=== PATIENT | male | born 1955 | race Caucasian/White ===

== ENCOUNTER 2021-08-08 10:54 | Outpatient (CLI) | payer MEDICARE, SELFPAY ==
--- NOTE | ~2021-08-08 | CT_ITS ---
EXAMINATION: CT abdomen pelvis wo con DATE: 08/08/2021 11:18 INDICATION: Left-sided flank pain TECHNIQUE: Computed tomography (CT) of the abdomen and pelvis was performed without intravenous contr ast. Automated exposure control and iterative reconstruction technique were employed. The dose-length product was 622.36 mGy-cm. COMPARISON: 09/22/2012 FINDINGS: Lung bases are clear. Heart size is normal. No pericardial or pleural effusion. Liver, gallbladder, s pleen, pancreas, bilateral adrenal glands and right kidney are normal. 1 cm nonobstructing stone in a lower pole calyx of the left kidney where there is chronic focal cortical scarring. The lower pole o f the left kidney there is a new 3.0 cm exophytic lesion with slightly greater than simple fluid atte nuation. No hydronephrosis or stones seen along the course of ureters. Mild wall thickening of the bl adder likely related to partially decompressed state although could also be related to chronic outlet obstruction from the enlarged prostate which measures 5.2 x 4.0 cm. Bowels including the appendix ar e normal. No free intraperitoneal gas or fluid. No pathologically enlarged abdominal or pelvic lympha denopathy. L4 laminectomy and partial L3 and L5 laminectomies with L3-L5 posterior spinal fusion with bilateral vertical reid and pedicle screw fixation. There is anterior fusion at L2-L4. Severe spondyl osis in the more cephalad lumbar and lower thoracic spine. IMPRESSION: 1. Centimeter nonobstructing stone at a lower pole calyx of the left kidney. 2. 3 cm indeterminate exophytic lesion at the lower pole of the left kidney which could represent a p roteinaceous/hemorrhagic cyst although differential would include renal cell carcinoma would recommen d further evaluation with pre and postcontrast MRI or CT. 3. Diffuse mild wall thickening of the bladder to at least in part to partially decompressed state bu t may also be secondary to chronic outlet obstruction from the enlarged prostate. Reviewed, dictated and finalized at location A. IMPRESSION: 1. Centimeter nonobstructing stone at a lower pole calyx of the left kidney. 2. 3 cm indeterminate exophytic lesion at the lower pole of the left kidney whi ch could represent a proteinaceous/hemorrhagic cyst although differential would include renal cell carcinoma would recommend further evaluation with pre and p ostcontrast MRI or CT. 3. Diffuse mild wall thickening of the bladder to at least in part to partially decompressed state but may also be secondary to chronic outlet obstruction fro m the enlarged prostate.
== END 2021-08-08 10:55 | disposition home or self-care (01) ==
LOC: ANHIMG 10:59
PROVIDERS: PCP Family Medicine; Visit Provider Urology
DX: R10.9 Unspecified abdominal pain (principal)
CPT/HCPCS: 74176

== ENCOUNTER 2021-08-15 06:53 | Outpatient (CLI) | payer MEDICARE, SELFPAY ==
--- NOTE | ~2021-08-15 | CT_ITS ---
EXAMINATION: CT abdomen pelvis wo/w con EXAM DATE: 08/15/2021 07:33 INDICATION: Neoplasm Of Uncertain Behavior Of Left Kidney TECHNIQUE: Spiral CT of the abdomen without contrast followed by both abdomen and pelvis with 100 cc intravenous Omnipaque 350. Axial, coronal and sagittal images of the abdomen and pelvis were reviewe d. The dose-length product (DLP) for this examination was 2428.87 mGy-cm. The exposure was tailored according to patient size (auto mA exposure control), and iterative reconstruction (ASIR) was used a s additional dose reduction technique. Comparison is made to prior examination from 08/08/2021, 09/23/19 13. FINDINGS: There is a 3.4 cm exophytic mass at the left kidney lower pole anterior cortex measuring 3. 4 cm, was not present in 2012, unchanged compared to last week. This measures 19 Hounsfield units on precontrast study, 33 on postcontrast study, demonstrating mild enhancement which could be from some septa suspected within. Appearance consistent with Bosniak 3 category cystic renal mass. There is a s tone in the left renal pelvis, nonobstructing at 1.1 cm. There are several subcentimeter renal cysts bilaterally. Left adrenal gland mass with macroscopic fat, a myelolipoma measuring 2.4 cm. Right adrenal gland, pa ncreas, spleen are unremarkable. Liver is unremarkable. Gallbladder is unremarkable. No biliary obst ruction. The prostate is unremarkable. Small bilateral inguinal fat-containing hernias. The bladder is unremarkable. There is no retroperitoneal or pelvic lymphadenopathy. There is mild scattered a rteriosclerotic disease. The appendix is normal. The stomach and small bowel are unremarkable. There is expected amount of c olonic stool. No free intraperitoneal gas. The heart is normal in size. There are no pericardial or pleural effusions. The lung bases are unremarkable. There are no osteoblastic or osteolytic les ions identified. Lumbar fusion L3-5. There are L4 laminectomies. IMPRESSION: 1. Left renal 3.4 cm cystic mass, Bosniak category 3. 2. Nonobstructing left renal pelvic stone. 3. Left adrenal myelolipoma. 4. Small inguinal hernias. Reviewed, dictated and finalized at location A.
[2021-08-15 07:27] LABS: Estimated Glomerular Filt Rate > 60
== END 2021-08-15 06:54 | disposition home or self-care (01) ==
PROVIDERS: PCP Family Medicine; Visit Provider Urology
DX: D49.512 Neoplasm of unspecified behavior of left kidney (principal); N28.1 Cyst of kidney, acquired; N20.0 Calculus of kidney; K40.90 Unilateral inguinal hernia, without obstruction or gangrene, not specified as recurrent; I70.0 Atherosclerosis of aorta
CPT/HCPCS: 74178; Q9967

== ENCOUNTER 2021-09-04 08:06 | Outpatient (CLI) | payer MEDICARE, SELFPAY ==
[2021-09-04 08:58] LABS: Prothrombin Time 13.1 Seconds (11.1-14.7)
[2021-09-04 09:01] LABS: Anion Gap 7 mmol/L (8-16); Blood Urea Nitrogen 17 mg/dL (9-20); Calcium 9.2 mg/dL (8.4-10.2); Carbon Dioxide 26 mmol/L (22-30); Chloride 106 mmol/L (98-107); Estimated Glomerular Filt Rate > 60; Glucose 96 mg/dL (65-110); Potassium 4.3 mmol/L (3.4-5.0); Sodium 139 mmol/L (137-145)
== END 2021-09-04 08:07 | disposition home or self-care (01) ==
LOC: ANHSURGERY 08:11
PROVIDERS: Anesthesiology; PCP Family Medicine; Visit Provider Urology
DX: Z01.812 Encounter for preprocedural laboratory examination (principal); N20.1 Calculus of ureter; I10 Essential (primary) hypertension; Z51.81 Encounter for therapeutic drug level monitoring; Z79.899 Other long term (current) drug therapy
CPT/HCPCS: 36415; 80048; 85610; 85730; 87086; 87088

== ENCOUNTER 2021-09-12 01:03 | Day surgery (SDC) | payer MEDICARE, SELFPAY ==
--- NOTE | 2021-09-01 13:40 | PC.NURSE ---
Report to the Outpatient Waiting Room, entrance under the green pavilion located off [facility], at time __0600 on date _09/12/21 . OR Time: . - You and your visitor will be asked a series of questions to screen for COVID 19 for your protection. - A mask is required within the hospital. Preoperative COVID Testing Requirements: No COVID Test needed if: (proof is required; if not received patient will have Rapid Test prior to entry) - Patient has received COVID Vaccine at least 14 days prior to procedure date or - Patient has positive COVID test result within last 90 days of surgery date. COVID Test needed if above criteria is not met If not COVID vaccinated a COVID test must be conducted within 72 hours of surgery and patient is asked to isolate self from time of testing until procedure. You will go to the [employer] [facility] for your COVID testing. The [employer] [facility] site is located at the corner of [address] [facility]. You will only be called if COVID results are positive and your surgeon may reschedule your elective surgery date. Patients may have clear liquids (water, carbonated beverages, clear teas, apple juice) until 3 hours prior to surgery with a maximum of 20 ounces. - No food from midnight until time of surgery - Infants may have breast milk until 4 hours before surgery, formula 6 hours prior to surgery. - Children will be allowed to drink immediately following surgery. If applicable, please bring a bottle or sippy cup to assist with drinking. Juice, water, soda, and popsicles are readily available. For infants on formula, please bring formula the day of surgery. Pacifiers are allowed. Take the following medications with a SIP of water the morning of surgery: _BUPROPION Medications to discontinue per physician PT STATES ASPIRIN AND ALL VITAMINS AND SUPPLEMENTS 5 DAYS PRE OP PER DR LORA Date to take last dose__09/06/21 Please no make-up, nail kazakh, hairspray, perfume, deodorant, or body powder the day of surgery. No jewelry (including any body piercings) or valuables the day of surgery, leave them at home. Please take a shower or bath the night before, or the morning of, surgery with an antibacterial soap. Wear comfortable, loose fitting clothing. Children are encouraged to wear pajamas. - Jewelry must be removed prior to entering the operating room. Rings and piercings that are not removed may be cut off. - The hospital will not accept responsibility for valuables. - Please leave all valuables, including medications, at home the day of surgery. If you are going home after surgery, a licensed driver lifter of sanitation truck must drive you home. - NO public transportation without another adult. - We recommend that an adult stay with you for 24 hours following discharge. - We also recommend that you do not drive, make important decision, drink alcoholic beverages, or take any drugs that were not prescribed by your health care provider for at least 24 hours after your discharge time One visitor will be allowed to accompany the patient into the hospital. Patients visitor will be instructed to remain with patient at all times or leave the building. We will allow the visitor to come back to the postoperative area when patient is ready. Follow any additional instructions given to you from your surgeon. Telephone instructions given to _PATIENT and asked if any additional questions and then verbalized understanding. Patient advised to call surgeon office or pre surgery nurse liaison [phone] if any additional questions.
[2021-09-01 13:58] VITALS: BMI 40.7
--- NOTE | 2021-09-02 13:31 | PM.HPGS ---
History of Present Illness History of Present Illness Consent: Risks, benefits, and alternatives have been discussed and questions answered. Patient agrees to proceed with procedure. Chief complaint: left ureteral stone Narrative: Stefan Kearns is a 66 year old male who was recently seen in follow-up for BPH. During that visit he complained of an atypical flank pain prompting CT scan the abdomen and pelvis without contrast. There revealed a 1 cm left renal pelvic stone in atypical cystic lesion in the lower pole of his left kidney. Follow-up contrast enhanced CT suggest a Bosniak 3 left lower pole cyst, in addition to the 1 cm renal pelvic stone. After careful discussion of options he has elected to proceed with left ESWL for the renal pelvic stone followed by definitive surgical intervention for the atypical suspicious lesion in the lower pole of his left kidney. He is aware the risk copy ESWL including, but not limited to, perinephric hematoma, residual fragments which may obstruct the ureter, need for repeat treatment. Review of Systems Cardiovascular: Cardiovascular: Denies chest pain, Denies lightheadedness, Denies palpitations and Denies dyspnea Respiratory: Respiratory: Denies dyspnea Gastrointestinal: Gastrointestinal: Denies diarrhea, Denies nausea and Denies vomiting Genitourinary: Genitourinary: Denies hematuria and Denies dysuria Endocrine: Endocrine: Denies palpitations PMFSH Past Medical History Medical History BPH (benign prostatic hyperplasia) Cardiac arrhythmia Chronic depression Colon cancer screening HTN (hypertension) Hyperlipidemia Hypogonadism Hypogonadism in male Hypogonadism in male Morbid obesity with BMI of 45.0-49.9, adult DALTON on CPAP Osteoarthritis, multiple sites Primary hypertension Prostate cancer screening Seasonal allergies Surgical History Surgical History H/O total knee replacement (~2007) left knee H/O total knee replacement (~2015) right knee History of bilateral carpal tunnel release History of lumbar fusion History of lumbar surgery (~2013) lumbar disc fusion L3-L5 History of total bilateral knee replacement Family History Family History Mother , 89 COPD (chronic obstructive pulmonary disease) Dementia Father , 89 Alzheimer disease Grandparent , 60 Paget's disease Grandparent , 67 Intestinal cancer Grandparent , 53 Pulmonary emboli Grandparent , 54 Alcoholism Cerebral hemorrhage Social History Social History Smoking status: Never smoker Alcohol intake: current Alcohol use details: 3 DRINKS PER MONTH Substance use: never Substance use type: does not use Spiritual care concerns: No Meds Home Medications and Allergies Home Medications Medication Instructions Recorded Confirmed Type atorvastatin 20 mg tablet 40 mg PO QPM 11/06/19 09/01/21 History metoprolol succinate 25 mg 25 mg PO QPM 11/06/19 09/01/21 History tablet,extended release 24 hr spironolactone 25 mg tablet 12.5 mg PO DAILY tablet 11/06/19 09/01/21 History ascorbate calcium (vitamin C) 500 500 mg PO DAILY 11/17/19 09/01/21 History mg tablet aspirin 81 mg tablet,delayed 81 mg PO DAILY 11/17/19 09/01/21 History release cholecalciferol (vitamin D3) 25 25 mcg PO DAILY 11/17/19 09/01/21 History mcg (1,000 unit) capsule famotidine 20 mg tablet 20 mg PO QPM 11/17/19 09/01/21 History multivitamin 1 cap PO DAILY 11/17/19 09/01/21 History omega 1-fxi-zmg-fish oil 1,000 mg 1 cap PO DAILY 11/17/19 09/01/21 History (120 mg-180 mg) capsule bupropion HCl 150 mg 24 hr tablet, 150 mg PO BID 03/12/21 09/01/21 History extended release magnesium chloride 64 mg 192 mg PO BID tablet
--- NOTE | 2021-09-11 13:56 | WPDANESEPP ---
Anes - Eval Pre Procedure Procedure: Operation Date: 09/12/21 07:30 Proposed Procedures p Left Extracorporeal Shock Wave Lithotripsy - Kvng Ward MD Date/Time: 09/11/21 13:56 Pre Op Diagnosis: left ureteral stone Patient Data Age: 66 Gender: M Height: 1.65 m Weight: 111.15 kg Allergies Allergy/AdvReac Type Severity Reaction Status Date / Time No Known Allergies Allergy Mild Verified 09/04/21 09:20 Home Medications Medication Instructions Recorded Confirmed Type atorvastatin 20 mg tablet 40 mg PO QPM 11/06/19 09/01/21 History metoprolol succinate 25 mg 25 mg PO QPM 11/06/19 09/01/21 History tablet,extended release 24 hr spironolactone 25 mg tablet 12.5 mg PO DAILY tablet 11/06/19 09/01/21 History ascorbate calcium (vitamin C) 500 500 mg PO DAILY 11/17/19 09/01/21 History mg tablet aspirin 81 mg tablet,delayed 81 mg PO DAILY 11/17/19 09/01/21 History release cholecalciferol (vitamin D3) 25 25 mcg PO DAILY 11/17/19 09/01/21 History mcg (1,000 unit) capsule famotidine 20 mg tablet 20 mg PO QPM 11/17/19 09/01/21 History multivitamin 1 cap PO DAILY 11/17/19 09/01/21 History omega 3-rhr-nzi-fish oil 1,000 mg 1 cap PO DAILY 11/17/19 09/01/21 History (120 mg-180 mg) capsule bupropion HCl 150 mg 24 hr tablet, 150 mg PO BID 03/12/21 09/01/21 History extended release magnesium chloride 64 mg 192 mg PO BID tablet 03/12/21 09/01/21 History tablet,extended release enalapril maleate 20 mg tablet 20 mg PO DAILY #90 tablet 07/24/21 09/01/21 Rx calcium carbonate-vitamin D3 1 tablet PO DAILY 09/01/21 09/01/21 History [Calcium 600 + D(3)] cromolyn 1 drp EACH EYE PRN PRN 09/01/21 09/01/21 History cyanocobalamin (vitamin B-12) 1,000 mcg PO DAILY 09/01/21 09/01/21 History escitalopram oxalate 10 mg PO QPM 09/01/21 09/01/21 History finasteride 5 mg PO QPM 09/01/21 09/01/21 History ljukthlm-ncmztxuji-GH 1 drp EACH EAR PRN PRN 09/01/21 09/01/21 History testosterone cypionate 200 mg/mL 200 mg IM .Q2WK #6 ml 09/04/21 Rx intramuscular oil Patient hx anesthesia problems: none Family hx anesthesia problems: none Results Review: All pre-operative results and documents have been reviewed as part of the pre-operative evaluation. [facility] Past Medical History Medical History BPH (benign prostatic hyperplasia) Cardiac arrhythmia Chronic depression Colon cancer screening HTN (hypertension) Hyperlipidemia Hypogonadism Hypogonadism in male Hypogonadism in male Morbid obesity with BMI of 45.0-49.9, adult [place] on CPAP Osteoarthritis, multiple sites Primary hypertension Prostate cancer screening Seasonal allergies Surgical History Surgical History H/O total knee replacement (~2007) left knee H/O total knee replacement (~2015) right knee History of bilateral carpal tunnel release History of lumbar fusion History of lumbar surgery (~2013) lumbar disc fusion L3-L5 History of total bilateral knee replacement Family History Family History Mother , 89 COPD (chronic obstructive pulmonary disease) Dementia Father , 89 Alzheimer disease Grandparent , 60 Paget's disease Grandparent , 67 Intestinal cancer Grandparent , 53 Pulmonary emboli Grandparent , 54 Alcoholism Cerebral hemorrhage Social History Social History Smoking status: Never smoker Alcohol intake: current Alcohol use details: 3 DRINKS PER MONTH Substance use: never Substance use type: does not use Spiritual care concerns: No Exam Day of Procedure 09/11/21 13:56
[2021-09-12] VITALS (7 sets, daily range): BP systolic 83–135; BP diastolic 50–86; PULSE 64–84; RESP 12–18; TEMP 36.3–36.6; O2SAT 97–100
--- NOTE | ~2021-09-12 | XR_ITS ---
EXAMINATION: XR abdomen/kub 1V DATE: 09/12/2021 06:04 INDICATION: Nephrolithiasis for planned shockwave lithotripsy TECHNIQUE: A supine view of the abdomen was obtained. COMPARISON: CT abdomen and pelvis dated 08/15/2021 FINDINGS: 1 cm stone at the left renal hilum. No other evident urolithiasis. Normal bowel gas pattern. Visualiz ed portions of the lung bases are clear. Lumbar dextro scoliosis with severe spondylosis. Instrumente d posterior spinal fusion with bilateral vertical reid and pedicle screw fixation at L3-L5. Anterior f usion without instrumentation at L2-L3. IMPRESSION: 1. 1 cm stone at the left renal pelvis. Reviewed, dictated and finalized at location A.
--- NOTE | 2021-09-12 06:29 | WPDHPUPDATE1 ---
History and Physical Update Update Date/Time: 09/12/21 06:29 History and Physical has been reviewed, including an updated exam of the patient. There are NO changes in the patient's condition. Risks, benefits, and alternatives have been discussed and questions answered. Patient agrees to proceed with procedure.
[2021-09-12] MEDS: LACTATED RINGERS 1,000 ML 30 ML IV CONT ×2 (06:30→08:51)
--- NOTE | 2021-09-12 07:04 | P.PNAN_ITS ---
Anes - Eval Final PreProcedure Day of Procedure 09/12/21 07:04 Patient weight: morbidly obese Heart: regular rate and rhythm Lungs: clear to auscultation and normal air movement Airway: Mallampati scale class II Neurological: alert and oriented Last oral intake: >/= 8 hours ASA classification: III Emergent: no Anesthetic plan: proceed Anesthesia type and monitoring: general LMA and standard monitoring Results Review: All pre-operative results and documents have been reviewed as part of the pre-operative evaluation. Informed Consent: The patient's anesthetic plan and its attendant risks and bene fits were discussed with the patient/family/POA. Questions were solicited and answers provided to the satisfaction of the patient/family/POA.
[2021-09-12] MEDS: ceFAZolin 2 GM/D5W 50 ML 2 GM/50 ML BAG IVPB (07:29)
--- NOTE | 2021-09-12 07:59 | W.PM.PROC2 ---
Procedure Note - Detailed Date of Procedure 09/12/21 Pre-op Diagnosis Left kidney stone Post-op Diagnosis Same Procedure Performed Left ESWL Surgeon Kvng Ward MD Anesthesia General Description of Procedure The patient was brought to the operative suite where he was placed in the supine position on the Dornier lithotripsy table. The focal point of the lithotripter was placed at a 1cm calculus. A total of 2500 shocks were delivered at a power setting of 1-4. There appeared to be good fragmentation of the stone. The patient tolerated the procedure well and was taken to the recovery room in good condition. Drains No Packing No Pathology None sent Complications No immediate complications Condition Stable Disposition PACU
[2021-09-12] MEDS: KETOROLAC 30 MG/ML VIAL (*BKC) IV PUSH (08:04)
== END 2021-09-12 10:10 | disposition home or self-care (01) ==
PROVIDERS: PCP Family Medicine; Visit Provider Urology
PROC: (CPT 50590; principal; 2021-09-12 07:30)
DX: N20.0 Calculus of kidney (principal); N28.1 Cyst of kidney, acquired; E66.01 Morbid (severe) obesity due to excess calories; Z68.41 Body mass index [BMI] 40.0-44.9, adult; Z79.82 Long term (current) use of aspirin; G47.33 Obstructive sleep apnea (adult) (pediatric); E78.5 Hyperlipidemia, unspecified; I10 Essential (primary) hypertension; I49.9 Cardiac arrhythmia, unspecified; N40.0 Benign prostatic hyperplasia without lower urinary tract symptoms; Z98.1 Arthrodesis status; M47.816 Spondylosis without myelopathy or radiculopathy, lumbar region
CPT/HCPCS: 50590; 74018; J0690; J1100; J1885; J2370; J2405; J2704; J3010; J7120

== ENCOUNTER 2021-09-22 14:03 | Outpatient (CLI) | payer MEDICARE, SELFPAY ==
--- NOTE | ~2021-09-22 | XR_ITS ---
XR abdomen/kub 1V 09/22/2021 14:16 Indication: Renal stone. Postlithotripsy. Procedure: KUB Comparison: 09/12/2021 Findings: Bowel gas pattern is nonobstructive. There is a stone in the lower pole of the left kidney. There is dextroscoliosis of the lumbar spine with fusion at L3-L5. There is advanced lumbar spondylo sis. Bowel gas pattern is nonobstructive. Impression: 1: Left nephrolithiasis. Reviewed, dictated and finalized at location A. Impression: 1: Left nephrolithiasis.
== END 2021-09-22 14:04 | disposition home or self-care (01) ==
PROVIDERS: PCP Family Medicine; Visit Provider Urology
DX: N20.0 Calculus of kidney (principal); M47.816 Spondylosis without myelopathy or radiculopathy, lumbar region
CPT/HCPCS: 74018

== ENCOUNTER 2021-10-08 14:15 | Outpatient (CLI) | payer MEDICARE, SELFPAY ==
--- NOTE | ~2021-10-08 | XR_ITS ---
EXAMINATION: XR abdomen/kub 1V DATE: 10/08/2021 14:38 INDICATION: Left kidney stone. TECHNIQUE: A supine view of the abdomen on 2 radiographs was obtained. COMPARISON: CT abdomen and pelvis 08/15/2021 FINDINGS: There are no dilated loops of bowel. There is a 10 mm stone in left kidney. There are granados es of posterior fusion procedure from L3 to L5. There are phleboliths in the pelvis. IMPRESSION: 1. 10 mm stone in left kidney. Reviewed, dictated and finalized at location A.
== END 2021-10-08 14:16 | disposition home or self-care (01) ==
PROVIDERS: PCP Family Medicine; Visit Provider Urology
DX: N20.0 Calculus of kidney (principal)
CPT/HCPCS: 74018

== ENCOUNTER 2021-10-17 19:29 | Emergency (ER) | payer MEDICARE, SELFPAY ==
[2021-10-17 19:47] VITALS: BP 145/85; PULSE 94; RESP 20; TEMP 36.6; O2SAT 97
--- NOTE | 2021-10-17 20:38 | ED.MALEGU ---
HPI - Male Genitourinary General Chief complaint: Urogenital-Male Stated complaint: gonzales problem Time Seen by Provider: 10/17/21 20:11 History of Present Illness HPI Narrative: 66-year-old male presents to the emergency room for evaluation of urine leakage around his Gonzales. Patient states 2 days ago he had a laparoscopic procedure at [facility] per Dr. Ward to have a small mass removed from his left kidney. Patient states indwelling catheter was placed following the procedure, and he has noticed urine leakage around the catheter since its initial placement. Patient denies abdominal pain fever Related Data Home Medications Medication Instructions Recorded Confirmed atorvastatin 20 mg tablet 40 mg PO QPM 11/06/19 09/01/21 metoprolol succinate 25 mg 25 mg PO QPM 11/06/19 09/12/21 tablet,extended release 24 hr spironolactone 25 mg tablet 12.5 mg PO DAILY 11/06/19 09/12/21 ascorbate calcium (vitamin C) 500 500 mg PO DAILY 11/17/19 09/01/21 mg tablet aspirin 81 mg tablet,delayed 81 mg PO DAILY 11/17/19 09/01/21 release (Adult Low Dose Aspirin) cholecalciferol (vitamin D3) 25 25 mcg PO DAILY 11/17/19 09/01/21 mcg (1,000 unit) capsule famotidine 20 mg tablet (Pepcid AC) 20 mg PO QPM 11/17/19 09/01/21 multivitamin 1 cap PO DAILY 11/17/19 09/01/21 omega 1-zkj-aun-fish oil 1,000 mg 1 cap PO DAILY 11/17/19 09/01/21 (120 mg-180 mg) capsule (Fish Oil) bupropion HCl 150 mg 24 hr tablet, 150 mg PO BID 03/12/21 09/12/21 extended release magnesium chloride 64 mg 192 mg PO BID 03/12/21 09/01/21 tablet,extended release calcium carbonate 600 mg-vitamin 1 tablet PO DAILY 09/01/21 09/01/21 D3 10 mcg (400 unit) tablet (Calcium 600 + D(3)) cromolyn 4 % eye drops 1 drp EACH EYE PRN PRN Dry Eye(S) 09/01/21 09/01/21 cyanocobalamin (vitamin B-12) 1,000 mcg PO DAILY 09/01/21 09/01/21 1,000 mcg tablet escitalopram oxalate 10 mg tablet 10 mg PO QPM 09/01/21 09/01/21 finasteride 5 mg tablet 5 mg PO QPM 09/01/21 09/01/21 khmeebcr-yypiqwkzp-dtqmjzxva 3.5 1 drp EACH EAR PRN PRN INFECTION 09/01/21 09/01/21 mg/mL-10,000 unit/mL-1 % ear solution Allergies Allergy/AdvReac Type Severity Reaction Status Date / Time No Known Allergies Allergy Mild Verified 10/17/21 19:51 Review of Systems Review of Systems: CONSTITUTIONAL: Denies fever, chills, or sweats. EYES: Denies visual changes, redness, or discharge. ENT: Denies rhinorrhea, congestion, sore throat, or otalgia. CARDIOVASCULAR: Denies chest pain, palpitations, or edema. RESPIRATORY: Denies cough or dyspnea. GASTROINTESTINAL: Denies abdominal pain, nausea, vomiting, or diarrhea. GENITOURINARY: Denies dysuria or hematuria. SKIN: Denies rash or itching. MUSCULOSKELETAL: Denies back pain, joint pain, or myalgia. NEUROLOGIC: Denies headache, numbness, dizziness, or weakness. PSYCHIATRIC: Denies anxiety or depression. [facility] Past Medical History Medical History BPH (benign prostatic hyperplasia) Cardiac arrhythmia Chronic depression Colon cancer screening HTN (hypertension) Hyperlipidemia Hypogonadism Hypogonadism in male Hypogonadism in male Morbid obesity with BMI of 45.0-49.9, adult D[place] on CPAP Osteoarthritis, multiple sites Primary hypertension Prostate cancer screening Seasonal allergies Surgical History Surgical History H/O total knee replacement (~2007) left knee H/O total knee replacement (~2015) right knee History of bilateral carpal tunnel release History of lumbar fusion History of lumbar surgery (~2013) lumbar disc fusion L3-L5 History of total bilateral knee replacement Family History Family History Mother , 89 COPD (chronic obstructive pulmonary disease) Dementia Father , 89 Alzheimer disease Grandparent , 60 Paget's disease Grandpar
--- NOTE | 2021-10-17 20:55 | PC.NURSE ---
Viera cath removed Pt was able to void with blood clots dark red clots.
[2021-10-17 23:27] VITALS: BP 142/67; PULSE 75; RESP 18; O2SAT 100
== END 2021-10-17 23:28 | disposition home or self-care (01) ==
PROVIDERS: Emergency Provider Nurse Practitioner Family; PCP Family Medicine
DX: T83.091A Other mechanical complication of indwelling urethral catheter, initial encounter (principal); Z98.890 Other specified postprocedural states; N40.0 Benign prostatic hyperplasia without lower urinary tract symptoms; I10 Essential (primary) hypertension; E78.5 Hyperlipidemia, unspecified; E66.01 Morbid (severe) obesity due to excess calories; M19.90 Unspecified osteoarthritis, unspecified site; G47.33 Obstructive sleep apnea (adult) (pediatric); F32.A Depression, unspecified; Z96.653 Presence of artificial knee joint, bilateral; Z98.1 Arthrodesis status; Z79.82 Long term (current) use of aspirin; Y84.6 Urinary catheterization as the cause of abnormal reaction of the patient, or of later complication, without mention of misadventure at the time of the procedure
CPT/HCPCS: 51702; 99283

== ENCOUNTER 2021-10-24 19:50 | Inpatient (IN) | payer MEDICARE, SELFPAY ==
--- NOTE | ~2021-10-24 | XR_ITS ---
XR chest 2V DATE: 10/24/2021 20:23 INDICATION: Fever. Nausea. Recent kidney surgery. TECHNIQUE: PA and lateral views COMPARISON: 09/29/2010 portable AP chest FINDINGS: Normal heart size. No hilar or mediastinal enlargement. No pulmonary infiltrate or consol idation, pulmonary vascular congestion or pleural effusion or pneumothorax. There is aortic calcification. Degenerative spurring of the thoracic spine. IMPRESSION: No active cardiopulmonary disease Reviewed, dictated and finalized at location A.
--- NOTE | ~2021-10-24 | CT_ITS ---
EXAMINATION: CT abdomen pelvis wo con DATE: 10/26/2021 09:49 INDICATION: persistent feves, pyelo TECHNIQUE: Computed tomography (CT) of the abdomen and pelvis was performed without intravenous contr ast. Automated exposure control and iterative reconstruction technique were employed. The dose-length product was 1316.27 mGy-cm. COMPARISON: 10/24/2021. FINDINGS: Lower thorax: Aortic valve and coronary calcifications. Bibasilar atelectasis. Liver: Normal. Biliary/Gallbladder: Gallbladder hydrops. No inflammatory change or obstructing stone/mass detected. No bile duct dilation. Pancreas: No mass or duct dilation. Spleen: Normal. Adrenals:Left adrenal myelolipoma. Kidneys: Persistent to slightly worsened moderate left perinephric stranding. 11 mm left renal pelvic stone. Irregular calcification and density in the left lower pole, consistent with postsurgical clark ge. GI tract: No small or large bowel dilation. Normal appendix. Mesentery/Peritoneum: No ascites, mass, or free air. Retroperitoneum: No mass. Atherosclerotic abdominal aortic and/or arterial calcifications. Pelvis: Persistent bladder wall thickening and surrounding inflammatory change. Soft Tissues: Soft tissues and body wall unremarkable. Bones: No acute osseous finding. IMPRESSION: Persistent to slightly worsening findings that are concerning for ascending infection in the left col lecting system and kidney. Persistent findings of cystitis. Reviewed, dictated and finalized at location K. IMPRESSION: Persistent to slightly worsening findings that are concerning for ascending inf ection in the left collecting system and kidney. Persistent findings of cystiti s.
--- NOTE | ~2021-10-24 | CT_ITS ---
EXAMINATION: CT abdomen pelvis wo con DATE: 10/24/2021 20:32 INDICATION:Fever and chills. Recent kidney surgery. TECHNIQUE: Computed tomography (CT) of the abdomen and pelvis was performed without intravenous contr ast. Automated exposure control and iterative reconstruction technique were employed. Exam dose: 139 5.55 mGy-cm total exam DLP. COMPARISON: None. FINDINGS: The lung bases are clear. Normal heart size. Coronary artery calcification. No pericardial or pleural effusion. The liver, gallbladder, bile ducts, pancreas, pancreatic duct and spleen are unremarkable. Normal right adrenal gland. Approximately 2.1 x 2.4 cm left adrenal myelolipoma. The right kidney is unremarkable, without evidence of mass lesion or hydronephrosis. No right urinary tract calculus. There is postoperative change with sutures along the anteroinferior aspect of the left kidney. There is left perinephric fat stranding, likely postoperative. No abscess cavity is identified. There is a very small amount of air in the left renal collecting system which may be postoperative or due to ins trumentation or infection. Approximately 7.8 x 10 mm left renal pelvic calculus with attenuation of 1300 Hounsfield units. No le ft hydronephrosis is detected. No left ureteral calculus is identified. There is some periureteral st randing on the left. There is prominent diffuse thickening of the urinary bladder wall and pericystic fat stranding, sugge sting cystitis. Mild prostate enlargement. There is some air in the left inguinal canal. There is subcutaneous emphysema of the left abdominal w all and left chest wall. Normal appendix. No bowel obstruction. Normal caliber of the abdominal aorta. No intraperitoneal or retroperitoneal or pelvic mass lesion or adenopathy or ascites. Lumbar laminectomy and posterior lumbar spinal surgical fusion. Extensive degenerative changes of the thoracic and lumbar spine. IMPRESSION: Prominent diffuse bladder wall thickening with pericystic fat stranding, suggesting cyst itis. There is suggestion of ascending left urinary tract infection with some left periureteral stran ding. There is a small amount of air in the left renal collecting structures from There is some perinephric stranding on the left which may be due to postsurgical change and/or infect ion There is some subcutaneous emphysema of the left abdominal and chest nathan, likely postoperative Left renal pelvic nonobstructing calculus Left adrenal myelolipoma Reviewed, dictated and finalized at Location A. Reviewed, dictated and finalized at location A. IMPRESSION: Prominent diffuse bladder wall thickening with pericystic fat stra nding, suggesting cystitis. There is suggestion of ascending left urinary tract infection with some left periureteral stranding. There is a small amount of ai r in the left renal collecting structures from There is some perinephric stranding on the left which may be due to postsurgica l change and/or infection There is some subcutaneous emphysema of the left abdominal and chest nathan, lik rose marie postoperative Left renal pelvic nonobstructing calculus Left adrenal myelolipoma
[2021-10-24 20:01] VITALS: BP 132/65; PULSE 94; RESP 16; TEMP 38.7; O2SAT 94
--- NOTE | 2021-10-24 20:27 | PC.NURSE ---
pt in CT at this time.
--- NOTE | 2021-10-24 20:29 | ED.FEVER ---
HPI - Fever General Chief Complaint: Fever <Jeanette Regalado PA-C - Last Filed: 10/25/21 01:59> Stated Complaint: fever, headache <ABEBA Goff Last Filed: 10/25/21 01:59> Time Seen by Provider: 10/24/21 19:58 <ABEBA Goff Last Filed: 10/25/21 01:59> Source: patient and family <ABEBA Goff Last Filed: 10/25/21 01:59> Mode of arrival: ambulatory <ABEBA Goff Last Filed: 10/25/21 01:59> Limitations: no limitations <ABEBA Goff Last Filed: 10/25/21 01:59> History of Present Illness HPI Narrative: Patient is a 66-year-old male who presents the ED with report of fever. Patient reports he had a lithotripsy done by Dr. Ward on 09/12 at which point he was found to have a suspicious lesion on the lower pole of his left kidney which they felt could be cancer. He was referred to a surgeon at [facility] (Dr. Pérez Cook), who performed a partial L nephrectomy on 10/15 via robotic laparoscopic surgery. 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 Patient has been doing well since then. Today, however he began having severe chills and shaking at home. His took his temperature and noted it to be 102.5 ?F at that time. He took Tylenol around 4 PM and 8 PM and then decided to come to the ED. Temperature upon arrival was 101.6 ?F which increased to 102.9F. Patient states he had a urinary catheter placed after the surgery. He did have issues with blood and clots in his urine initially. The gonzales was removed yesterday at his follow-up appointment with his surgeon. Patient has been able to urinate fine since then but did have occasional dysuria at first. He has urinated several times today. Denies any hematuria. Denies any significant abdominal pain, constipation, diarrhea, nausea, vomiting, recent cough or cold symptoms. Patient denies any chest pain, cough, difficulty breathing, BLE pain or edema. <Jeanette Regalado PA-C - Last Filed: 10/25/21 01:59> Related Data Home Medications: Home Medications Medication Instructions Recorded Confirmed atorvastatin 20 mg tablet 40 mg PO QPM 11/06/19 10/24/21 metoprolol succinate 25 mg 25 mg PO QPM 11/06/19 10/24/21 tablet,extended release 24 hr spironolactone 25 mg tablet 12.5 mg PO DAILY 11/06/19 10/24/21 ascorbate calcium (vitamin C) 500 500 mg PO DAILY 11/17/19 10/24/21 mg tablet aspirin 81 mg tablet,delayed 81 mg PO DAILY 11/17/19 10/24/21 release (Adult Low Dose Aspirin) cholecalciferol (vitamin D3) 25 25 mcg PO DAILY 11/17/19 10/24/21 mcg (1,000 unit) capsule famotidine 20 mg tablet (Pepcid AC) 20 mg PO QPM 11/17/19 10/24/21 multivitamin 1 cap PO DAILY 11/17/19 10/24/21 omega 8-rty-bkl-fish oil 1,000 mg 1 cap PO DAILY 11/17/19 10/24/21 (120 mg-180 mg) capsule (Fish Oil) bupropion HCl 150 mg 24 hr tablet, 150 mg PO BID 03/12/21 10/24/21 extended release magnesium chloride 64 mg 192 mg PO BID 03/12/21 10/24/21 tablet,extended release calcium carbonate 600 mg-vitamin 1 tablet PO DAILY 09/01/21 10/24/21 D3 10 mcg (400 unit) tablet (Calcium 600 + D(3)) cromolyn 4 % eye drops 1 drp EACH EYE PRN PRN Dry Eye(S) 09/01/21 10/24/21 cyanocobalamin (vitamin B-12) 1,000 mcg PO DAILY 09/01/21 10/24/21 1,000 mcg tablet escitalopram oxalate 10 mg tablet 10 mg PO QPM 09/01/21 10/24/21 finasteride 5 mg tablet 5 mg PO QPM 09/01/21 10/24/21 djwjvnuw-axjqsysjk-mlqwcampn 3.5 1 drp EACH EAR PRN PRN INFECTION 09/01/21 10/24/21 mg/mL-10,000 unit/mL-1 % ear solution <Jeanette Regalado PA-C - Last Filed: 10/25/21 01:59> Allergies/Adverse Reactions: Allergies Allergy/AdvReac Type Severity Reaction Status Date / Time No Known Allergies Allergy Mild Verified 10/24/21 20:06 <Jeanette Regalado PA-C - Last Filed: 10/25/21 01:59> Review of Systems Review of Systems: CONSTITUTIONAL: Reports fe
[2021-10-24] MEDS: SODIUM CHLORIDE 0.9% IV 1,000 ML 999 ML IV CONT (20:47)
[2021-10-24] MEDS: KETOROLAC 30 MG/ML VIAL (*BKC) IV PUSH (20:48)
[2021-10-24 20:49] LABS: Basophils Percent Auto 0.3 % (0.2-1.2); Eosinophils Absolute Auto 0.1 K/mm3 (0-0.3); Eosinophils Percent Auto 0.6 % (0-4.4); Hematocrit 40.3 % (42.0-52.0); Immature Granulocyte Absolute 0.03 K/mm3 (0.00-0.031); Immature Granulocyte Percent A 0.3 % (0-0.5); Lymphocytes Absolute Auto 0.57 K/mm3 (0.9-3.2); Lymphocytes Percent Auto 5.1 % (18.3-44.2); Mean Corpuscular HGB Conc 32.3 g/dl (32-36); Mean Corpuscular Hemoglobin 29.8 pg (26-34); Mean Corpuscular Volume 92.4 fl (80-100); Mean Platelet Volume 9.6 fl (7.4-10.4); Monocytes Absolute Auto 0.9 K/mm3 (0.1-0.6); Monocytes Percent Auto 8.3 % (2.6-8.5); Neutrophils Absolute Auto 9.6 K/mm3 (1.3-6.7); Neutrophils Percent Auto 85.4 % (45.5-73.1); Platelet Count Result 189 k/mm3 (150-375); Red Blood Count 4.36 M/mm3 (4.6-6.20); Red Cell Distribution Width 13.9 % (11.5-14.5); White Blood Count 11.3 K/mm3 (4.5-10.0)
[2021-10-24 20:51] LABS: Add Urine Microscopic? YES; Appearance Urine Slightly Cloudy (Clear); Bilirubin Urine Negative (Negative); Blood Urine 2+ (Negative); Color Urine Yellow (Yellow); Glucose Urine UA Negative (Negative); Ketones Urine Negative (Negative); Leukocyte Esterase Ur 1+ LEU/UL (Negative); Nitrate Urine Negative (Negative); Protein Urine 1+ mg/dL (Negative); Specific Grav Ur 1.015 (1.001-1.035); Urobilinogen Urine 0.2 mg/dL (<2.0)
[2021-10-24 20:54] VITALS: BP 121/65; PULSE 95; RESP 18; TEMP 39.4; O2SAT 96
[2021-10-24 20:56] LABS: Amorphous Sediment Urine Few; Bacteria Urine Trace /hpf; RBC Urine >75 /hpf (0-2); WBC Urine >75 /hpf
[2021-10-24 20:57] LABS: Lactic Acid Reflex 1.2 mmol/L (0.7-2.0)
[2021-10-24 20:59] LABS: Alanine Aminotransferase 26 U/L (6-50); Albumin Level 3.9 g/dL (3.5-5.1); Alkaline Phosphatase 80 U/L (38-126); Anion Gap 7 mmol/L (8-16); Aspartate Amino Transferase 27 U/L (17-59); Bilirubin,Total 1.1 mg/dL (0.2-1.3); Blood Urea Nitrogen 19 mg/dL (9-20); Calcium 8.8 mg/dL (8.4-10.2); Carbon Dioxide 27 mmol/L (22-30); Chloride 99 mmol/L (98-107); Estimated CRCL calculation 58 ml/min; Estimated Glomerular Filt Rate 55; Glucose 119 mg/dL (65-110); Potassium 4.3 mmol/L (3.4-5.0); Sodium 133 mmol/L (137-145)
--- NOTE | 2021-10-24 22:14 | PM.IMHP ---
H&P: HPI History of Present Illness Date/Time: 10/24/21 22:14 Chief Complaint: Dysuria Narrative: This is a 66-year-old male with past medical history significant for hypertension, benign prostatic hyperplasia, atrial fibrillation, dyslipidemia, congestive heart failure, renal cell carcinoma of the left kidney patient underwent partial nephrectomy on October 15 and went home with Viera catheter in which was removed the day prior to coming to the emergency room patient had pain with urination, chills, had episode of fever of 102 patient took Tylenol. In emergency room preliminary workup was significant for CT of abdomen and pelvis with ascending pyelo nephritis urinalysis with numerous WBCs and RBCs present. Patient has been admitted for further evaluation management and treatment. Review of Systems Review of Systems: Pain and burning with urination abdominal pain and discomfort fever rigors chills status post left partial nephrectomy by a laparoscopic surgery Constitutional: Constitutional: Reports chills, Reports fatigue and Reports fever(s) Eyes: Eyes: Denies change in vision ENT: Denies dysphagia, Denies vertigo, Denies dizziness, Denies nasal congestion, Denies nasal discharge, Denies nasal obstruction and Denies odynophagia Cardiovascular: Cardiovascular: Denies pedal edema, Denies irregular heart rhythm, Denies claudication, Denies lightheadedness, Denies radiating jaw, neck or arm pain, Denies palpitations, Denies dyspnea on exertion and Denies paroxysmal nocturnal dyspnea Respiratory: Respiratory: Denies chest congestion and Denies cough Gastrointestinal: Gastrointestinal: Reports abdominal pain and Reports nausea Genitourinary: Genitourinary: Reports dysuria and Reports flank pain Musculoskeletal: Musculoskeletal: Denies arthralgias and Denies joint swelling Integumentary/Breasts: Skin/Breast: Denies rash Neurologic: Denies focal weakness and Denies Sensory deficit (Neuro) Endocrine: Endocrine: Denies cold intolerance, Denies fatigue, Denies flushing, Denies heat intolerance, Denies polyphagia, Denies polydipsia and Denies palpitations Hematologic/Lymphatic: Hematologic/Lymphatic: Reports no additional hematologic/lymphatic complaints and Reports as per HPI Allergic/Immunologic: Allergic/Immunologic: Reports no additional allergic/immunologic complaints and Reports as per HPI PMFSH Past Medical History Medical History (Updated 10/25/21 @ 04:36 by Linda Pulliam MD) BPH (benign prostatic hyperplasia) Cardiac arrhythmia Chronic depression Colon cancer screening HTN (hypertension) Hyperlipidemia Hypogonadism Hypogonadism in male Hypogonadism in male Morbid obesity with BMI of 45.0-49.9, adult DALTON on CPAP Osteoarthritis, multiple sites Primary hypertension Prostate cancer screening Seasonal allergies Surgical History Surgical History (Updated 10/24/21 @ 22:26 by Jeanette Regalado PA-C) H/O total knee replacement (~2007) left knee H/O total knee replacement (~2015) right knee History of bilateral carpal tunnel release History of lumbar fusion History of lumbar surgery (~2013) lumbar disc fusion L3-L5 History of partial nephrectomy History of total bilateral knee replacement Family History Family History Mother , 89 COPD (chronic obstructive pulmonary disease) Dementia Father , 89 Alzheimer disease Grandparent , 60 Paget's disease Grandparent , 67 Intestinal cancer Grandparent , 53 Pulmonary emboli Grandparent , 54 Alcoholism Cerebral hemorrhage Social History Social History Smoking status: Never smoker Alcohol intake: never Alcohol use details: one drink q2w Substance use: never Substance use type: does not use Gender identity (if verbalized by the patient): Male Sexual Orientation (if Verbalize
[2021-10-24 22:30] VITALS: BP 111/59; PULSE 91; RESP 18; TEMP 38; O2SAT 95
[2021-10-24 23:27] VITALS: BMI 40.5
[2021-10-24 23:28] VITALS: BP 132/59; PULSE 78; RESP 18; TEMP 37.8; O2SAT 96; BMI 40.5
[2021-10-24 23:37] VITALS: BP 122/66; PULSE 86; RESP 18; O2SAT 96
[2021-10-25] VITALS (14 sets, daily range): BP systolic 90–120; BP diastolic 48–78; PULSE 85–103; RESP 18; TEMP 37.1–39; O2SAT 96–97
[2021-10-25 08:06] LABS: Basophils Absolute Auto 0.1 K/mm3 (0.0-0.1); Basophils Percent Auto 0.5 % (0.2-1.2); Hematocrit 40.2 % (42.0-52.0); Hemoglobin 12.7 g/dL (14.0-18.0); Immature Granulocyte Absolute 0.51 K/mm3 (0.00-0.031); Immature Granulocyte Percent A 1.8 % (0-0.5); Lymphocytes Absolute Auto 0.69 K/mm3 (0.9-3.2); Lymphocytes Percent Auto 2.4 % (18.3-44.2); Mean Corpuscular HGB Conc 31.6 g/dl (32-36); Mean Corpuscular Hemoglobin 29.5 pg (26-34); Mean Corpuscular Volume 93.3 fl (80-100); Mean Platelet Volume 10.2 fl (7.4-10.4); Monocytes Absolute Auto 1.6 K/mm3 (0.1-0.6); Monocytes Percent Auto 5.7 % (2.6-8.5); Neutrophils Absolute Auto 25.7 K/mm3 (1.3-6.7); Neutrophils Percent Auto 89.6 % (45.5-73.1); Platelet Count Result 191 k/mm3 (150-375); Red Blood Count 4.31 M/mm3 (4.6-6.20); White Blood Count 28.6 K/mm3 (4.5-10.0)
[2021-10-25] MEDS: SPIRONOLACTONE 12.5 MG TABLET PO (08:13)
[2021-10-25] MEDS: buPROPion HCL SR (12 HR) 150 MG TAB PO ×2 (08:13→20:40)
[2021-10-25] MEDS: ASPIRIN 81 MG ENTERIC TABLET PO (08:13)
[2021-10-25] MEDS: CHOLECALCIFEROL 1,000 UNITS TABLET 1000 UNITS PO (08:14)
[2021-10-25] MEDS: ASCORBIC ACID 500 MG TABLET PO (08:14)
[2021-10-25] MEDS: ENALAPRIL MALEATE 10 MG TABLET 20 MG PO (08:14)
[2021-10-25] MEDS: CYANOCOBALAMIN 1,000 MCG TABLET 1000 MCG PO (08:14)
[2021-10-25] MEDS: OMEGA 3 POLYUNSAT FATTY ACIDS 1 GM CAP PO (08:14)
[2021-10-25] MEDS: MULTIVITAMINS THERAPEUTIC TAB (*BKC) 1 TABLET PO (08:14)
[2021-10-25] MEDS: MAGNESIUM OXIDE 200 MG TABLET PO ×2 (08:14→20:40)
[2021-10-25 08:39] LABS: Albumin Level 3.5 g/dL (3.5-5.1); Anion Gap 6 mmol/L (8-16); Blood Urea Nitrogen 21 mg/dL (9-20); CRP 13.1 mg/dL (<1.0); Calcium 8.3 mg/dL (8.4-10.2); Carbon Dioxide 22 mmol/L (22-30); Chloride 102 mmol/L (98-107); Estimated CRCL calculation 50 ml/min; Estimated Glomerular Filt Rate 47; Glucose 125 mg/dL (65-110); Magnesium 1.6 mg/dL (1.6-2.3); Phosphorus 3.1 mg/dL (2.5-4.5); Potassium 4.2 mmol/L (3.4-5.0); Sodium 130 mmol/L (137-145)
--- NOTE | 2021-10-25 10:22 | PM.IMPN ---
Progress Note: A&P Assessment and Plan (1) Sepsis: Code(s): A41.9 - Sepsis, unspecified organism Status: Acute Assessment and Plan: Present on admission with elevated white count, rigors and fever. Still with fevers and had diaphoresis overnight. WBC was 11K but now jumped to 28K. BCx and UCx pending. Currently on Vanco. Received one dose of Zosyn in the ED. Zosyn was resumed this morning but labs returned showing elevated Cr to 1.5 today. States he is voiding well (UOP not quantified). Will change Zosyn to Cefepime. Monitor fever curve and follow WBC. (2) Pyelonephritis of left kidney: Code(s): N12 - Tubulo-interstitial nephritis, not specified as acute or chronic Status: Acute Assessment and Plan: Complicated UTI related to recent Viera. Patient presents with fever/rigors. -- CT scan showing left perinephric fat stranding but no abscess cavity is identified. There is a very small amount of air in the left renal collecting system which may be postoperative or due to instrumentation or infection.There is a 1cm left renal pelvic calculus but no left hydronephrosis or left ureteral calculus. There is some periureteral stranding on the left with a prominent diffuse thickening of the urinary bladder wall and pericystic fat stranding, suggesting cystitis. -- Patient was started on vancomycin and given one dose of Zosyn in the ED. -- Zosyn continued this morning but will change to Cefepime. -- BCx and UCx pending; follow up on results. narrow coverage when able. Urology following (3) MALDONADO (acute kidney injury): Code(s): N17.9 - Acute kidney failure, unspecified Status: Acute Assessment and Plan: Cr 1.1-1.5 listed here prior to his surgery. Cr 1.3 on admission and now 1.5. CT was done without contrast. Could be related to ATN from the sepsis. Consider also new baseline Cr related to mild underlying renal dysfunction worse since the partial nephrectomy. CT abdomen reviewed. Do not feel this is related to the abx but will adjust to limit nephrotoxic exposures. Follow. (4) History of partial nephrectomy: Code(s): Z90.5 - Acquired absence of kidney Status: Acute Assessment and Plan: As above. Surgical changes noted but can not exclude infectious process. Urology will be following along (5) Primary hypertension: Code(s): I10 - Essential (primary) hypertension Status: Acute Assessment and Plan: Patient's blood pressure was reviewed on 10/25 Blood pressure remains well controlled. Will continue current medications. (6) DALTON on CPAP: Code(s): G47.33 - Obstructive sleep apnea (adult) (pediatric); Z99.89 - Dependence on other enabling machines and devices Status: Acute Assessment and Plan: Continue auto CPAP here. (7) Morbid obesity with BMI of 45.0-49.9, adult: Code(s): E66.01 - Morbid (severe) obesity due to excess calories; Z68.42 - Body mass index [BMI] 45.0-49.9, adult Status: Acute Assessment and Plan: Lifestyle and diet modification encouraged. Plan DVT prophylaxis: SCDs Code status: Full Subjective Date/time seen: 10/25/21 10:22 Interval history: 66yo male with DALTON, HTN and recent partial left nephrectomy for renal cell CA here for fever/chills and dysuria. Assuming care. Chart reviewed. Patient was found to have renal cell carcinoma and underwent partial nephrectomy on 10/15/2021. Was discharged with Viera catheter which was removed a day or so prior to this admission. He feels better today. He was diaphoretic overnight that has improved today. No nausea or vomiting. Eating reasonably well. He denies chest pain. He has been up walking in the room. Normal urine output. No hematuria. Asking about when he can go home. Exam Narrative: Tm 102.7 100.2 113/69 103 18 97% ra Gen - NARD sitting up in chair Chest - CTA bilaterally, nml RR CV - RRR S1/S2 Abd - Soft, o
--- NOTE | 2021-10-25 11:30 | WPDURCON ---
Assessment and Plan Assessment and plan (1) Sepsis: Code(s): A41.9 - Sepsis, unspecified organism Status: Acute Assessment and Plan: Suspect patient has febrile urinary tract infection with possible pyelonephritis due to recent Viera catheterization -please start Flomax -please monitor postvoid residual and if greater than [address] Viera catheter in setting of acute infection to maximize drainage -patient has a known kidney stone in the left renal pelvis, his CT from last night does not demonstrate any evidence of obvious obstruction, he has no flank pain. Given this, we will hold off on intervention, however should his clinical picture not improve with antibiotics he may need ureteral stenting to maximize drainage to fully clear infection. Please make NPO at midnight and we will determine if this is necessary, or should his clinical condition seemed to be worsening over the day please notify and we would potentially make arrangements to place a stent sooner. -continue antibiotics per primary and follow-up cultures (2) MALDONADO (acute kidney injury): Code(s): N17.9 - Acute kidney failure, unspecified Status: Acute Assessment and Plan: Suspect due to hydration and acute infection along with recent partial nephrectomy. Monitor for now. (3) Status post nephrectomy: Code(s): Z90.5 - Acquired absence of kidney Status: Acute Assessment and Plan: Does not appear to have obvious evidence on exam of an intra-abdominal process, CT with relatively normal findings, no fluid collection that would warrant drainage, no obvious evidence of something like a bowel injury, thus overall clinical picture seems most consistent with a febrile urinary tract infection. Urology Consult Note HPI Date Seen: 10/25/21 Requesting Physician: Linda Pulliam MD Primary Care Provider: Phyllis Love MD Consult Narrative Narrative: Stefan Kearns is a 66 year old male status post left robotic assisted partial nephrectomy with Dr. Pérez Cook at [facility] on 10/15/2021 with a relatively uncomplicated postoperative course with the exception of urinary retention requiring replacement of Viera catheter, which was removed in the office 10 23 2021 admitted to the hospital last night with fevers, chills in the picture concerning for pyelonephritis. Patient reports overall doing quite well since his surgery. He was discharged home 2 days postoperatively without any apparent complications of surgery with exception of he had postoperative urinary retention and failed a trial void and a Viera replaced prior to discharge. He did have to return to the emergency room here at [place] the day after discharge due to some obstruction of the catheter which was exchanged and irrigated. Since then he was doing well at home. The Viera catheter was removed in Dr. Cook is office 10/23/21 patient reports he was voiding well. He did have some mild left flank pain the night of 10/23/2021. Reports yesterday while at home in the afternoon developed fever, chills, rigors that was painless. He feels he was voiding reasonably well without much dysuria, hematuria, or change in odor of urine. Presented to emergency room last night his temperature was 37.8?. CT abdomen pelvis was performed with full report as below, but in brief shows some thickening of the bladder concerning for urinary tract infection, very small amount air in the upper collecting system, has a stone that appears to be nonobstructing in the left in renal pelvis, without hydronephrosis, there is not substantial fluid collection near the kidney, no evidence of abscess, he has very small amount of air in the subcutaneous space near his port sites. He denies flank pain, abdominal pain, nausea, vomiting, is having normal bowel movements. Today he says he feels he is emptying his bladder well, without dysuria or feelings of incomplete emptying, he has had no further
[2021-10-25] MEDS: PROMETHAZINE HCL 25 MG/ML AMPUL IM (13:19)
[2021-10-25] MEDS: FINASTERIDE 5 MG TABLET PO (17:26)
[2021-10-25] MEDS: ATORVASTATIN 40 MG TABLET PO (17:26)
[2021-10-25] MEDS: METOPROLOL SUCCINATE EXT REL 25 MG TABCR PO (17:26)
[2021-10-25] MEDS: FAMOTIDINE 20 MG TABLET PO (17:26)
[2021-10-25] MEDS: ESCITALOPRAM OXALATE 10 MG TABLET PO (17:26)
[2021-10-26] VITALS (8 sets, daily range): BP systolic 119–131; BP diastolic 56–69; PULSE 68–88; RESP 18–22; TEMP 36.7–38.1; O2SAT 94–98
[2021-10-26] MEDS: WATER FOR IRRIGATION, STERILE 1,000 ML BOTTLE 1000 ML (05:12)
[2021-10-26 05:54] LABS: Basophils Absolute Auto 0.1 K/mm3 (0.0-0.1); Basophils Percent Auto 0.3 % (0.2-1.2); Hematocrit 37.2 % (42.0-52.0); Hemoglobin 11.9 g/dL (14.0-18.0); Immature Granulocyte Absolute 0.39 K/mm3 (0.00-0.031); Immature Granulocyte Percent A 1.5 % (0-0.5); Lymphocytes Absolute Auto 0.83 K/mm3 (0.9-3.2); Lymphocytes Percent Auto 3.2 % (18.3-44.2); Mean Corpuscular Hemoglobin 29.5 pg (26-34); Mean Corpuscular Volume 92.3 fl (80-100); Mean Platelet Volume 10.1 fl (7.4-10.4); Monocytes Absolute Auto 1.7 K/mm3 (0.1-0.6); Monocytes Percent Auto 6.6 % (2.6-8.5); Neutrophils Absolute Auto 23.3 K/mm3 (1.3-6.7); Neutrophils Percent Auto 88.4 % (45.5-73.1); Platelet Count Result 177 k/mm3 (150-375); Red Blood Count 4.03 M/mm3 (4.6-6.20); Red Cell Distribution Width 14.3 % (11.5-14.5); White Blood Count 26.3 K/mm3 (4.5-10.0)
[2021-10-26 06:07] LABS: Albumin Level 3.3 g/dL (3.5-5.1); Anion Gap 4 mmol/L (8-16); Blood Urea Nitrogen 23 mg/dL (9-20); Calcium 8.2 mg/dL (8.4-10.2); Carbon Dioxide 26 mmol/L (22-30); Chloride 103 mmol/L (98-107); Estimated CRCL calculation 44 ml/min; Estimated Glomerular Filt Rate 41; Glucose 114 mg/dL (65-110); Sodium 133 mmol/L (137-145)
--- NOTE | 2021-10-26 08:28 | PC.NURSE ---
All 0800 and 0900 meds given by Elida Gore RN.
[2021-10-26] MEDS: ENALAPRIL MALEATE 10 MG TABLET 20 MG PO (11:23)
[2021-10-26] MEDS: MAGNESIUM OXIDE 200 MG TABLET PO ×2 (11:23→20:13)
[2021-10-26] MEDS: buPROPion HCL SR (12 HR) 150 MG TAB PO ×2 (11:23→20:11)
[2021-10-26] MEDS: CYANOCOBALAMIN 1,000 MCG TABLET 1000 MCG PO (11:23)
[2021-10-26] MEDS: MULTIVITAMINS THERAPEUTIC TAB (*BKC) 1 TABLET PO (11:23)
[2021-10-26] MEDS: ASPIRIN 81 MG ENTERIC TABLET PO (11:23)
[2021-10-26] MEDS: ASCORBIC ACID 500 MG TABLET PO (11:23)
[2021-10-26] MEDS: CHOLECALCIFEROL 1,000 UNITS TABLET 1000 UNITS PO (11:24)
[2021-10-26] MEDS: OMEGA 3 POLYUNSAT FATTY ACIDS 1 GM CAP PO (11:24)
--- NOTE | 2021-10-26 11:25 | WPDUROPN2 ---
Progress Note: A&P Assessment and Plan (1) Sepsis: Code(s): A41.9 - Sepsis, unspecified organism Status: Acute Plan (1) Sepsis: ?Code(s): A41.9 - Sepsis, unspecified organism ?Status:?Acute ?Assessment and Plan: Suspect patient has febrile urinary tract infection with possible pyelonephritis due to recent Viera catheterization -continue Flomax -please monitor postvoid residual and if greater than [address] Viera catheter in setting of acute infection to maximize drainage-10/25 PVRs were all low however -patient has a known kidney stone in the left renal pelvis, his CT from 2 days ago and repeat this morningdoes not demonstrate any evidence of obvious obstruction, he has no flank pain.? Given this, we will hold off on intervention, however should his clinical picture not improve with antibiotics he may need ureteral stenting to maximize drainage to fully clear infection.? Given slight downtrend of fever curve 10/25 relative to 10/24 and continued lack of flank pain, will hold off on ureteral stenting at this point time. However, if white count does not down trend or he continues to have fevers for a prolonged course, may need attempted stenting to see if that can assist with clearance of infection. Further, CT does not show any obvious evidence of bowel injury or other postoperative fluid collection. Could consider CT with p.o. contrast at some point, but abdominal exam is very reassuring and non concerning for bowel injury. -continue antibiotics per primary and follow-up cultures (2) MALDONADO (acute kidney injury): ?Code(s): N17.9 - Acute kidney failure, unspecified ?Status:?Acute ?Assessment and Plan: Suspect due to hydration and acute infection along with recent partial nephrectomy.? Monitor for now. (3) Status post nephrectomy: ?Code(s): Z90.5 - Acquired absence of kidney ?Status:?Acute ?Assessment and Plan: Does not appear to have obvious evidence on exam of an intra-abdominal process, CT with relatively normal findings, no fluid collection that would warrant drainage, no obvious evidence of something like a bowel injury, thus overall clinical picture seems most consistent with a febrile urinary tract infection. Time Spent With Patient Time: 15 Subjective Subjective Date/Time Seen: 10/26/21 11:25 Yesterday continue to spike fevers with T-max of 39.0? this is down some from prior days T-max of 39.4. Patient felt somewhat warm last night, but overall generally feels well. PVR was monitored throughout the day yesterday he was emptying well so a Viera catheter was not placed. Patient continues to have no abdominal or flank pain, feels he is voiding, in general says he is feeling improved relative to prior to admission. A CT without contrast obtained by the primary service today on my review appears similar to 1 from several days prior, there was minimal to no fluid surrounding the kidney, he continues to have a UPJ stone but no obvious hydronephrosis and left kidney, very small amount of gas near port sites appear stable to slightly improved, there is no fluid collection I would raise measures fashion of a bowel injury. Exam Const: General: comfortable and no acute distress Resp: Effort & Inspection: normal respiratory effort Cardio: Rate: regular rate GI: Inspection: non-distended GI Palp: Yes Soft to palpation, No Guarding due to palpation present (GI) and No Hernia present Other: Incisions remain current clean dry and intact with no evidence of infection, drainage, tenderness : Other: Normal external exam Extrem: Other: No edema Objective Data Vital Signs Vital Signs: Vital Signs - 24 hr 10/25/21 12:59 10/25/21 14:00 10/25/21 13:29 Temperature 38.8 C H 39.0 C H 38.7 C H Pulse Rate 92 Respiratory Rate 18 Blood Pressure 120/78 Pulse Oximetry 97 Oxygen Delivery 10/25/21 16:32 10/25/21 17:25 10/25/21 17:26 Temperature 37.5 C 37.
--- NOTE | 2021-10-26 15:53 | PM.IMPN ---
Progress Note: A&P Assessment and Plan (1) Sepsis: Code(s): A41.9 - Sepsis, unspecified organism Status: Acute Assessment and Plan: Present on admission with elevated white count, rigors and fever 2nd to left pyelonephritis. Still with fevers but fever curve improving. WBC was 11K but jumped to 28K. WBC down slightly to 26K. BCx are NGTD. UCx growing Klebsiella that is relatively pansensitive. Was on Vanco and Cefepime but will narrow to Rocephin (use 2gm dose given the severity). Repeat CT A/P given the persistent fevers. Monitor fever curve and follow WBC. (2) Pyelonephritis of left kidney: Code(s): N12 - Tubulo-interstitial nephritis, not specified as acute or chronic Status: Acute Assessment and Plan: Complicated UTI related to recent Viera. Patient presents with fever/rigors. -- CT scan showing left perinephric fat stranding but no abscess cavity is identified. There is a very small amount of air in the left renal collecting system which may be postoperative or due to instrumentation or infection.There is a 1cm left renal pelvic calculus but no left hydronephrosis or left ureteral calculus. There is some periureteral stranding on the left with a prominent diffuse thickening of the urinary bladder wall and pericystic fat stranding, suggesting cystitis. -- Patient was started on vancomycin and Zosyn but changed to Cefepime. -- BCx NGTD; UCx growing Klebsiella that is relatively pansensitive -- Change to Rocephin 2gm daily -- Repeat CT A/P -- Urology following and appreciate their input (3) MALDONADO (acute kidney injury): Code(s): N17.9 - Acute kidney failure, unspecified Status: Acute Assessment and Plan: Cr 1.1-1.5 listed here prior to his surgery. Cr 1.3 on admission and now 1.7. CT was done without contrast. Could be related to ATN from the sepsis. Consider also new baseline Cr related to mild underlying renal dysfunction worse since the partial nephrectomy. Good UOP. Hold Spironolactone. Follow. (4) History of partial nephrectomy: Code(s): Z90.5 - Acquired absence of kidney Status: Acute Assessment and Plan: Patient with renal cell CA s/p partial left nephrectomy. As above. Surgical changes noted but can not exclude infectious process. Urology is following along. Follow up on CT results from today. (5) Primary hypertension: Code(s): I10 - Essential (primary) hypertension Status: Acute Assessment and Plan: Patient's blood pressure was reviewed on 10/26 Blood pressure remains well controlled. Will continue current medications. (6) DALTON on CPAP: Code(s): G47.33 - Obstructive sleep apnea (adult) (pediatric); Z99.89 - Dependence on other enabling machines and devices Status: Acute Assessment and Plan: Stable. Mostly compliant. Continue auto CPAP here. (7) Morbid obesity with BMI of 45.0-49.9, adult: Code(s): E66.01 - Morbid (severe) obesity due to excess calories; Z68.42 - Body mass index [BMI] 45.0-49.9, adult Status: Acute Assessment and Plan: Lifestyle and diet modification encouraged. Plan DVT prophylaxis: SCDs Code status: Full Subjective Date/time seen: 10/26/21 15:53 Interval history: 66yo male with DALTON, HTN and recent partial left nephrectomy for renal cell CA here for fever/chills and dysuria. [place]. Did wear his mask overnight. No CP or SOB. No n/v. Eating okay. Exam Narrative: Tm 100.7 98.3 119/59 68 22 95% ra Gen - NARD Chest - CTA bilaterally, nml RR CV - RRR S1/S2 Abd - Soft, obese, NT, left abdominal surgical wounds with dried eschars and are healing well without drainage. Ext - No pedal edema Psych - Nml mood and affect Skin - Warm and dry Objective Data Vital Signs Vital Signs: Vital Signs - 24 hr 10/25/21 16:32 10/25/21 17:25 10/25/21 17:26 Temperature 99.5 F 98.7 F Pulse Rate 96 Respiratory Rate Blood Pressure
[2021-10-26] MEDS: cefTRIAXone 2 GM in SODIUM CHLORIDE 0.9% IV 100 ML 200 ML IVPB (17:27)
[2021-10-26] MEDS: FINASTERIDE 5 MG TABLET PO (17:28)
[2021-10-26] MEDS: METOPROLOL SUCCINATE EXT REL 25 MG TABCR PO (17:28)
[2021-10-26] MEDS: ATORVASTATIN 40 MG TABLET PO (17:28)
[2021-10-26] MEDS: ESCITALOPRAM OXALATE 10 MG TABLET PO (17:28)
[2021-10-26] MEDS: FAMOTIDINE 20 MG TABLET PO (17:28)
[2021-10-27 02:19] VITALS: PULSE 70; O2SAT 99
[2021-10-27 05:47] LABS: Basophils Absolute Auto 0.1 K/mm3 (0.0-0.1); Basophils Percent Auto 0.3 % (0.2-1.2); Eosinophils Absolute Auto 0.1 K/mm3 (0-0.3); Eosinophils Percent Auto 0.3 % (0-4.4); Hematocrit 36.6 % (42.0-52.0); Hemoglobin 11.4 g/dL (14.0-18.0); Immature Granulocyte Absolute 0.06 K/mm3 (0.00-0.031); Immature Granulocyte Percent A 0.4 % (0-0.5); Lymphocytes Absolute Auto 1.08 K/mm3 (0.9-3.2); Lymphocytes Percent Auto 7.2 % (18.3-44.2); Mean Corpuscular HGB Conc 31.1 g/dl (32-36); Mean Corpuscular Hemoglobin 28.9 pg (26-34); Mean Corpuscular Volume 92.9 fl (80-100); Mean Platelet Volume 10.3 fl (7.4-10.4); Monocytes Absolute Auto 1.1 K/mm3 (0.1-0.6); Monocytes Percent Auto 7.5 % (2.6-8.5); Neutrophils Absolute Auto 12.7 K/mm3 (1.3-6.7); Neutrophils Percent Auto 84.3 % (45.5-73.1); Platelet Count Result 166 k/mm3 (150-375); Red Blood Count 3.94 M/mm3 (4.6-6.20); Red Cell Distribution Width 14.3 % (11.5-14.5)
[2021-10-27 06:00] VITALS: BP 111/67; PULSE 82; RESP 18; TEMP 37.3; O2SAT 96
[2021-10-27 06:09] LABS: Anion Gap 4 mmol/L (8-16); Blood Urea Nitrogen 21 mg/dL (9-20); Calcium 8.3 mg/dL (8.4-10.2); Carbon Dioxide 26 mmol/L (22-30); Chloride 103 mmol/L (98-107); Estimated CRCL calculation 54 ml/min; Estimated Glomerular Filt Rate 51; Glucose 108 mg/dL (65-110); Potassium 3.8 mmol/L (3.4-5.0); Sodium 133 mmol/L (137-145)
--- NOTE | 2021-10-27 06:48 | WPDUROPN2 ---
Progress Note: A&P Assessment and Plan (1) Pyelonephritis of left kidney: Code(s): N12 - Tubulo-interstitial nephritis, not specified as acute or chronic Status: Acute (2) History of partial nephrectomy: Code(s): Z90.5 - Acquired absence of kidney Status: Acute (3) Left renal stone: Code(s): N20.0 - Calculus of kidney Status: Acute Assessment and Plan: Known stone left kidney - s/p left ESWL 6-weeks ago s/p recent robotic-assisted left partial nephrectomy Current left pyelonephritis - blood culture neg. and Enterobacter in urine responding to Ceftriaxone I'd considered placement left ureteral stent but given improvement in overall clinical picture will defer, for now. Subjective Subjective Date/Time Seen: 10/27/21 06:48 Feels much better this morning - no pain and alleviation of generalize weakness/malaise Review of Systems Cardiovascular: Cardiovascular: Denies chest pain, Denies lightheadedness, Denies palpitations and Denies dyspnea Respiratory: Respiratory: Denies dyspnea Gastrointestinal: Gastrointestinal: Denies diarrhea, Denies nausea and Denies vomiting Genitourinary: Genitourinary: Denies hematuria and Denies dysuria Endocrine: Endocrine: Denies palpitations Exam Const: General: no acute distress Resp: Effort & Inspection: normal respiratory effort GI: Inspection: non-distended GI Palp: No abdominal tenderness (incisions all clean and dry) and No Guarding due to palpation present (GI) Auscultation: normal bowel sounds : Male General Exam: Yes normal external exam Objective Data Vital Signs Vital Signs: Vital Signs - 24 hr 10/26/21 08:05 10/26/21 08:00 10/26/21 13:25 Temperature 98.6 F 98.0 F Pulse Rate Respiratory Rate Blood Pressure Pulse Oximetry Oxygen Delivery Room Air 10/26/21 14:00 10/26/21 17:28 10/26/21 20:00 Temperature 98.3 F Pulse Rate 68 76 Respiratory Rate 22 H Blood Pressure 119/59 L Pulse Oximetry 95 Oxygen Delivery Room Air 10/26/21 21:32 10/26/21 22:44 10/27/21 02:19 Temperature 99.1 F Pulse Rate 80 79 70 Respiratory Rate 18 Blood Pressure 131/69 Pulse Oximetry 98 96 99 Oxygen Delivery Autopap Autopap 10/27/21 06:00 Temperature 99.2 F Pulse Rate 82 Respiratory Rate 18 Blood Pressure 111/67 Pulse Oximetry 96 Oxygen Delivery Intake/Output Intake/Output: Intake & Output 10/24/21 10/25/21 10/26/21 10/27/21 23:59 23:59 23:59 23:59 Intake Total 1100 1507 2004 300 Output Total 520 2200 Balance 1100 987 -196 300 Meds/Results Medications: Active Medications Generic Name Dose Route Start Last Admin Trade Name Freq PRN Reason Stop Dose Admin Hydrocodone Bitart/Acetaminophen 1 tab 10/25/21 04:44 Hydrocodone/Acetaminophen (*Crx) 5-325 Mg Tablet PO Q6H PRN Pain Rated 4-6 Ascorbic Acid 500 mg 10/25/21 09:00 10/26/21 11:23 Ascorbic Acid 500 Mg Tablet PO 500 mg DAILY ANA Administration Aspirin 81 mg 10/25/21 09:00 10/26/21 11:23 Aspirin 81 Mg Enteric Tablet PO 81 mg DAILY ANA Administration Atorvastatin Calcium 40 mg 10/25/21 18:00 10/26/21 17:28 Atorvastatin 40 Mg Tablet PO 40 mg QPM ANA Administration Bupropion HCl 150 mg 10/25/21 09:00 10/26/21 20:11 Bupropion Hcl Sr (12 Hr) 150 Mg Tab PO 150 mg Q12HR ANA Administration Calcium Carbonate 500 mg 10/25/21 09:00 10/26/21 11:23 Calcium/Vitamin D 500 Mg Tablet PO 500 mg QAM ANA Administration Cyanocobalamin 1,000 mcg 10/25/21 09:00 10/26/21 11:23 Cyanocobalamin 1,000 Mcg Tablet PO 1,000 mcg DAILY ANA Administration Enalapril Maleate 20 mg 10/25/21 09:00 10/26/21 11:23 Enalapril Maleate 10 Mg Tablet PO 20 mg DAILY ANA Administration Escitalopram Oxalate 10 mg 10/25/21 18:00 10/26/21 17:28 Escitalopram Oxalate 10 Mg Tablet PO 10 mg QPM ANA Administration Famotidine 20 mg 10/25/21 18:00
--- NOTE | 2021-10-27 08:00 | PM.IMPN ---
Progress Note: A&P Assessment and Plan (1) Sepsis: Code(s): A41.9 - Sepsis, unspecified organism Status: Acute Assessment and Plan: Present on admission with elevated white count, rigors and fever 2nd to left pyelonephritis. Still with fevers but fever curve improving. WBC was 11K but jumped to 28K. WBC down slightly to 26K. BCx are NGTD. UCx growing Klebsiella that is relatively pansensitive. Was on Vanco and Cefepime but will narrow to Rocephin (use 2gm dose given the severity). Repeat CT A/P given the persistent fevers. Monitor fever curve and follow WBC. -10/27 Afebrile since 0600 on 10/26. Patient clinically improved appears to be responding well to ceftriaxone 2g IV. Will plan to transition to oral antibiotics tomorrow for possible discharge if urology is ok with discharge. (2) Pyelonephritis of left kidney: Code(s): N12 - Tubulo-interstitial nephritis, not specified as acute or chronic Status: Acute Assessment and Plan: Complicated UTI related to recent Viera. Patient presents with fever/rigors. -- CT scan showing left perinephric fat stranding but no abscess cavity is identified. There is a very small amount of air in the left renal collecting system which may be postoperative or due to instrumentation or infection.There is a 1cm left renal pelvic calculus but no left hydronephrosis or left ureteral calculus. There is some periureteral stranding on the left with a prominent diffuse thickening of the urinary bladder wall and pericystic fat stranding, suggesting cystitis. -- Patient was started on vancomycin and Zosyn but changed to Cefepime. -- BCx NGTD; UCx growing Klebsiella that is relatively pansensitive -- Change to Rocephin 2gm daily -- Repeat CT A/P - showed persistent to slightly worsening of findings concerning for ascending infection of the left colleting system and kidney. -- Urology following and appreciate their input -10/27 patietn clinically improved. Will continue ceftriaxone IV for today and transition to oral antibiotics tomorow. (3) MALDONADO (acute kidney injury): Code(s): N17.9 - Acute kidney failure, unspecified Status: Acute Assessment and Plan: Cr 1.1-1.5 listed here prior to his surgery. Cr 1.3 on admission and now 1.7. CT was done without contrast. Could be related to ATN from the sepsis. Consider also new baseline Cr related to mild underlying renal dysfunction worse since the partial nephrectomy. Good UOP. Hold Spironolactone. 10/27 creatinine is back to baseline. Will plan to restart spironolactone for discharge. (4) History of partial nephrectomy: Code(s): Z90.5 - Acquired absence of kidney Status: Acute Assessment and Plan: Patient with renal cell CA s/p partial left nephrectomy. As above. Surgical changes noted but can not exclude infectious process. Urology is following along. CT resulsts as noted above. (5) Primary hypertension: Code(s): I10 - Essential (primary) hypertension Status: Acute Assessment and Plan: Patient's blood pressure was reviewed on 10/26 Blood pressure remains well controlled. Will continue current medications. (6) DALTON on CPAP: Code(s): G47.33 - Obstructive sleep apnea (adult) (pediatric); Z99.89 - Dependence on other enabling machines and devices Status: Acute Assessment and Plan: Stable. Mostly compliant. Continue auto CPAP here. (7) Morbid obesity with BMI of 45.0-49.9, adult: Code(s): E66.01 - Morbid (severe) obesity due to excess calories; Z68.42 - Body mass index [BMI] 45.0-49.9, adult Status: Acute Assessment and Plan: Lifestyle and diet modification encouraged. Subjective Date/time seen: 10/27/21 08:00 Patient says he feels better overall. Review of Systems Genitourinary: Genitourinary: Denies dysuria Exam Narrative: GENERAL: NAD, cooperative HEENT: Normocephalic, atraumatic, anicteric NECK: Supple C
[2021-10-27] MEDS: ASPIRIN 81 MG ENTERIC TABLET PO (09:59)
[2021-10-27] MEDS: buPROPion HCL SR (12 HR) 150 MG TAB PO ×2 (09:59→20:46)
[2021-10-27] MEDS: MAGNESIUM OXIDE 200 MG TABLET PO ×2 (09:59→20:46)
[2021-10-27] MEDS: CYANOCOBALAMIN 1,000 MCG TABLET 1000 MCG PO (09:59)
[2021-10-27] MEDS: ENALAPRIL MALEATE 10 MG TABLET 20 MG PO (09:59)
[2021-10-27] MEDS: MULTIVITAMINS THERAPEUTIC TAB (*BKC) 1 TABLET PO (09:59)
[2021-10-27] MEDS: CHOLECALCIFEROL 1,000 UNITS TABLET 1000 UNITS PO (09:59)
[2021-10-27] MEDS: OMEGA 3 POLYUNSAT FATTY ACIDS 1 GM CAP PO (09:59)
[2021-10-27] MEDS: ASCORBIC ACID 500 MG TABLET PO (09:59)
[2021-10-27 14:00] VITALS: BP 114/60; PULSE 67; RESP 24; TEMP 37.6; O2SAT 96
[2021-10-27] MEDS: ATORVASTATIN 40 MG TABLET PO (16:59)
[2021-10-27] MEDS: ESCITALOPRAM OXALATE 10 MG TABLET PO (16:59)
[2021-10-27] MEDS: FAMOTIDINE 20 MG TABLET PO (16:59)
[2021-10-27 17:00] VITALS: PULSE 80
[2021-10-27] MEDS: METOPROLOL SUCCINATE EXT REL 25 MG TABCR PO (17:00)
[2021-10-27] MEDS: FINASTERIDE 5 MG TABLET PO (17:00)
[2021-10-27] MEDS: cefTRIAXone 2 GM in SODIUM CHLORIDE 0.9% IV 100 ML 200 ML IVPB (17:02)
[2021-10-27] MEDS: HYDROcodone/acetaminophen (*CRX) 5-325 MG TABLET 1 TAB PO (20:48)
[2021-10-27 21:10] VITALS: BP 134/67; PULSE 61; RESP 16; TEMP 38; O2SAT 97
[2021-10-28 02:10] VITALS: PULSE 65; O2SAT 97
[2021-10-28 06:00] VITALS: BP 147/81; PULSE 63; RESP 16; TEMP 36.9; O2SAT 97
[2021-10-28 06:10] LABS: Potassium 3.9 mmol/L (3.4-5.0)
[2021-10-28 06:30] LABS: Hemoglobin 11.8 g/dL (14.0-18.0); Mean Corpuscular HGB Conc 31.9 g/dl (32-36); Mean Corpuscular Hemoglobin 29.6 pg (26-34); Mean Corpuscular Volume 92.7 fl (80-100); Mean Platelet Volume 10.8 fl (7.4-10.4); Platelet Count Result 172 k/mm3 (150-375); Red Blood Count 3.99 M/mm3 (4.6-6.20); Red Cell Distribution Width 14.3 % (11.5-14.5); White Blood Count 9.1 K/mm3 (4.5-10.0)
[2021-10-28 06:35] LABS: Anion Gap 6 mmol/L (8-16); Blood Urea Nitrogen 19 mg/dL (9-20); Calcium 8.7 mg/dL (8.4-10.2); Carbon Dioxide 29 mmol/L (22-30); Chloride 100 mmol/L (98-107); Estimated CRCL calculation 54 ml/min; Estimated Glomerular Filt Rate 51; Glucose 105 mg/dL (65-110); Potassium 3.9 mmol/L (3.4-5.0); Sodium 135 mmol/L (137-145)
--- NOTE | 2021-10-28 06:43 | WPDUROPN2 ---
Progress Note: A&P Assessment and Plan (1) Pyelonephritis of left kidney: Code(s): N12 - Tubulo-interstitial nephritis, not specified as acute or chronic Status: Acute (2) History of partial nephrectomy: Code(s): Z90.5 - Acquired absence of kidney Status: Acute (3) Left renal stone: Code(s): N20.0 - Calculus of kidney Status: Acute Assessment and Plan: Known stone left kidney - s/p left ESWL 6-weeks ago s/p recent robotic-assisted left partial nephrectomy Current left pyelonephritis - blood culture neg. and Enterobacter in urine responding to Ceftriaxone I'd considered placement left ureteral stent but given improvement in overall clinical picture will defer, for now. 10/28/21 Continues to have clinical picture of non-obstructive left pyelonephritis -> slowly resolving fevers as expected. Blood cultures remain negative and leukocytosis improving. I'm comfortable with discarge on 10-day course of oral abx. (Levaquin or Cefdinir). Subjective Subjective Date/Time Seen: 10/28/21 06:43 Comfortable, no c/o abdominal pain and tolerating diet Review of Systems Cardiovascular: Cardiovascular: Denies chest pain, Denies lightheadedness, Denies palpitations and Denies dyspnea Respiratory: Respiratory: Denies dyspnea Gastrointestinal: Gastrointestinal: Denies diarrhea, Denies nausea and Denies vomiting Genitourinary: Genitourinary: Denies hematuria and Denies dysuria Endocrine: Endocrine: Denies palpitations Exam Const: General: no acute distress Resp: Effort & Inspection: normal respiratory effort GI: Inspection: non-distended and other (incisions healing nicely) GI Palp: No abdominal tenderness and No Guarding due to palpation present (GI) Auscultation: normal bowel sounds Objective Data Vital Signs Vital Signs: Vital Signs - 24 hr 10/27/21 08:30 10/27/21 14:00 10/27/21 17:00 Temperature 99.6 F Pulse Rate 67 80 Respiratory Rate 24 H Blood Pressure 114/60 Pulse Oximetry 96 Oxygen Delivery Room Air 10/27/21 21:10 10/28/21 02:10 10/28/21 06:00 Temperature 100.4 F H 98.4 F Pulse Rate 61 65 63 Respiratory Rate 16 16 Blood Pressure 134/67 147/81 H Pulse Oximetry 97 97 97 Oxygen Delivery Autopap Intake/Output Intake/Output: Intake & Output 10/25/21 10/26/21 10/27/21 10/28/21 23:59 23:59 23:59 23:59 Intake Total 1507 2004 1200 250 Output Total 520 2200 Balance 987 -196 1200 250 Meds/Results Medications: Active Medications Generic Name Dose Route Start Last Admin Trade Name Freq PRN Reason Stop Dose Admin Hydrocodone Bitart/Acetaminophen 1 tab 10/25/21 04:44 10/27/21 20:48 Hydrocodone/Acetaminophen (*Crx) 5-325 Mg Tablet PO 1 tab Q6H PRN Administration Pain Rated 4-6 Ascorbic Acid 500 mg 10/25/21 09:00 10/27/21 09:59 Ascorbic Acid 500 Mg Tablet PO 500 mg DAILY ANA Administration Aspirin 81 mg 10/25/21 09:00 10/27/21 09:59 Aspirin 81 Mg Enteric Tablet PO 81 mg DAILY ANA Administration Atorvastatin Calcium 40 mg 10/25/21 18:00 10/27/21 16:59 Atorvastatin 40 Mg Tablet PO 40 mg QPM ANA Administration Bupropion HCl 150 mg 10/25/21 09:00 10/27/21 20:46 Bupropion Hcl Sr (12 Hr) 150 Mg Tab PO 150 mg Q12HR ANA Administration Calcium Carbonate 500 mg 10/25/21 09:00 10/27/21 09:59 Calcium/Vitamin D 500 Mg Tablet PO 500 mg QAM ANA Administration Cyanocobalamin 1,000 mcg 10/25/21 09:00 10/27/21 09:59 Cyanocobalamin 1,000 Mcg Tablet PO 1,000 mcg DAILY ANA Administration Enalapril Maleate 20 mg 10/25/21 09:00 10/27/21 09:59 Enalapril Maleate 10 Mg Tablet PO 20 mg DAILY ANA Administration Escitalopram Oxalate 10 mg 10/25/21 18:00 10/27/21 16:59 Escitalopram Oxalate 10 Mg Tablet PO 10 mg QPM ANA Administration Famotidine 20 mg 10/25/21 18:00 10/27/21 16:59 Famotidine 20 Mg Tablet PO 20 mg QPM ANA Administrati
--- NOTE | 2021-10-28 07:35 | PM.DS ---
DS: Admitting Diagnosis Discharge Date 10/28/21 Admitting Diagnosis Pyelonephritis DS: Discharge Diagnosis Discharge Diagnosis (1) Sepsis: Code(s): A41.9 - Sepsis, unspecified organism Status: Acute Assessment and Plan: Present on admission with elevated white count, rigors and fever 2nd to left pyelonephritis. Still with fevers but fever curve improving. WBC was 11K but jumped to 28K. WBC down slightly to 26K. BCx are NGTD. UCx growing Klebsiella that is relatively pansensitive. Was on Vanco and Cefepime but will narrow to Rocephin (use 2gm dose given the severity). Repeat CT A/P given the persistent fevers. Monitor fever curve and follow WBC. -10/27 Afebrile since 0600 on 10/26. Patient clinically improved appears to be responding well to ceftriaxone 2g IV. Will plan to transition to oral antibiotics tomorrow for possible discharge if urology is ok with discharge. -10/28/21 BCX with NGTD. Patient feeling much better and overall clinically improved. Will discharge to home with levofloxacin to be completed on 11/06/21. Advised patient to follow up with PCP by next Wednesday11/03/21. Patient and verbalized understanding of the plan and all questions were answered. (2) Pyelonephritis of left kidney: Code(s): N12 - Tubulo-interstitial nephritis, not specified as acute or chronic Status: Acute Assessment and Plan: Complicated UTI related to recent Viera. Patient presents with fever/rigors. -- CT scan showing left perinephric fat stranding but no abscess cavity is identified. There is a very small amount of air in the left renal collecting system which may be postoperative or due to instrumentation or infection.There is a 1cm left renal pelvic calculus but no left hydronephrosis or left ureteral calculus. There is some periureteral stranding on the left with a prominent diffuse thickening of the urinary bladder wall and pericystic fat stranding, suggesting cystitis. -- Patient was started on vancomycin and Zosyn but changed to Cefepime. -- BCx NGTD; UCx growing Klebsiella that is relatively pansensitive -- Change to Rocephin 2gm daily -- Repeat CT A/P - showed persistent to slightly worsening of findings concerning for ascending infection of the left colleting system and kidney. -- Urology following and appreciate their input -10/27 patietn clinically improved. Will continue ceftriaxone IV for today and transition to oral antibiotics tomorow. -10/28/21 -Will discharge with levofloxacin. (3) MALDONADO (acute kidney injury): Code(s): N17.9 - Acute kidney failure, unspecified Status: Acute Assessment and Plan: Cr 1.1-1.5 listed here prior to his surgery. Cr 1.3 on admission and now 1.7. CT was done without contrast. Could be related to ATN from the sepsis. Consider also new baseline Cr related to mild underlying renal dysfunction worse since the partial nephrectomy. Good UOP. Hold Spironolactone. 10/27 creatinine is back to baseline. Will plan to restart spironolactone for discharge. -Will restart spironalactone with discharge -Will need to recheck BMP at next clinic visit with PCP (4) History of partial nephrectomy: Code(s): Z90.5 - Acquired absence of kidney Status: Acute Assessment and Plan: Patient with renal cell CA s/p partial left nephrectomy. As above. Surgical changes noted but can not exclude infectious process. Urology is following along. CT results as noted above. (5) Primary hypertension: Code(s): I10 - Essential (primary) hypertension Status: Acute Assessment and Plan: Patient's blood pressure was reviewed on 10/26 Blood pressure remains well controlled. Will continue current medications. (6) DALTON on CPAP: Code(s): G47.33 - Obstructive sleep apnea (adult) (pediatric); Z99.89 - Dependence on other enabling machines and devices Status: Acute Assessment and Plan: Stable. Mostly compliant. Continue auto CPAP
[2021-10-28 08:00] VITALS: PULSE 63; RESP 16; O2SAT 97
[2021-10-28] MEDS: buPROPion HCL SR (12 HR) 150 MG TAB PO (08:22)
[2021-10-28] MEDS: MAGNESIUM OXIDE 200 MG TABLET PO (08:22)
[2021-10-28] MEDS: CHOLECALCIFEROL 1,000 UNITS TABLET 1000 UNITS PO (08:22)
[2021-10-28] MEDS: ASCORBIC ACID 500 MG TABLET PO (08:22)
[2021-10-28] MEDS: MULTIVITAMINS THERAPEUTIC TAB (*BKC) 1 TABLET PO (08:22)
[2021-10-28] MEDS: ASPIRIN 81 MG ENTERIC TABLET PO (08:22)
[2021-10-28] MEDS: ENALAPRIL MALEATE 10 MG TABLET 20 MG PO (08:22)
[2021-10-28] MEDS: OMEGA 3 POLYUNSAT FATTY ACIDS 1 GM CAP PO (08:22)
[2021-10-28] MEDS: CYANOCOBALAMIN 1,000 MCG TABLET 1000 MCG PO (08:22)
[2021-10-28] MEDS: cefTRIAXone 2 GM in SODIUM CHLORIDE 0.9% IV 100 ML 200 ML IVPB (13:56)
== END 2021-10-28 14:25 | disposition home or self-care (01) | DRG 698 ==
LOC: ANHED 22:27 → ANH3MEDSUR 22:52
PROVIDERS: Internal Medicine; Physician Assistant; Urology; Admitting Provider Internal Medicine; Emergency Provider Emergency Medicine; PCP Family Medicine; Visit Provider Family Medicine
DX: T83.511A Infection and inflammatory reaction due to indwelling urethral catheter, initial encounter (principal); A41.9 Sepsis, unspecified organism; N17.0 Acute kidney failure with tubular necrosis; N10 Acute pyelonephritis; Z68.41 Body mass index [BMI] 40.0-44.9, adult; N20.0 Calculus of kidney; B96.89 Other specified bacterial agents as the cause of diseases classified elsewhere; N40.0 Benign prostatic hyperplasia without lower urinary tract symptoms; E78.5 Hyperlipidemia, unspecified; G47.33 Obstructive sleep apnea (adult) (pediatric); I11.0 Hypertensive heart disease with heart failure; I50.9 Heart failure, unspecified; E66.01 Morbid (severe) obesity due to excess calories; I48.91 Unspecified atrial fibrillation; M15.9 Polyosteoarthritis, unspecified; Z96.653 Presence of artificial knee joint, bilateral; Z98.1 Arthrodesis status; Z90.5 Acquired absence of kidney
CPT/HCPCS: 36415; 71046; 74176; 80048; 80053; 80069; 81001; 83605; 83735; 84132; 85025; 85027; 86140; 87040; 87077; 87086; 87186; 96361; 96365; 96367; 96375; 96376; 99285; A9270; G0378; J0131; J0692; J0696; J1885; J2543; J2550; J3370; J7030

== ENCOUNTER 2021-12-31 12:26 | Outpatient (CLI) | payer MEDICARE, SELFPAY ==
[2021-12-31 12:59] LABS: Appearance Urine Clear (Clear); Bilirubin Urine Negative (Negative); Blood Urine Negative (Negative); Color Urine Yellow (Yellow); Glucose Urine UA Negative (Negative); Ketones Urine Negative (Negative); Leukocyte Esterase Ur Negative LEU/UL (Negative); Nitrate Urine Negative (Negative); Protein Urine Negative (Negative); Urobilinogen Urine 0.2 mg/dL (<2.0)
[2021-12-31 13:09] LABS: Anion Gap 10 mmol/L (8-16); Blood Urea Nitrogen 17 mg/dL (9-20); Calcium 9.6 mg/dL (8.4-10.2); Carbon Dioxide 28 mmol/L (22-30); Chloride 101 mmol/L (98-107); Estimated Glomerular Filt Rate 55; Glucose 84 mg/dL (65-110); Potassium 4.6 mmol/L (3.4-5.0); Sodium 139 mmol/L (137-145)
[2021-12-31 13:11] LABS: Add Urine Microscopic? NO
[2021-12-31 13:15] LABS: Partial Thromboplastin Time 27.7 SECONDS (22.3-36.8); Prothrombin Time 12.7 Seconds (11.1-14.7)
== END 2021-12-31 12:27 | disposition home or self-care (01) ==
LOC: ANHSURGERY 12:31
PROVIDERS: Anesthesiology; PCP Family Medicine; Visit Provider Urology
DX: N20.0 Calculus of kidney (principal); I10 Essential (primary) hypertension; Z01.818 Encounter for other preprocedural examination
CPT/HCPCS: 36415; 80048; 81003; 85610; 85730

== ENCOUNTER 2022-01-01 00:51 | Day surgery (SDC) | payer MEDICARE, SELFPAY ==
--- NOTE | 2021-12-31 10:15 | PC.NURSE ---
Report to the Outpatient Waiting Room, entrance under the green pavilion located off [facility], at time _1145 on date __01/01/22 . OR Time: __1345 . - You and your visitor will be asked to self-screen and do not enter if you have any COVID symptoms. - Only one visitor and NO children visitors are allowed at this time. - The patient visitor is requested to leave or wait in car when not with patient due to restrictions. - A mask is required within the hospital. Patients may have clear liquids (water, carbonated beverages, clear teas, apple juice) until 3 hours prior to surgery with a maximum of 20 ounces. - No food from midnight until time of surgery - Infants may have breast milk until 4 hours before surgery, infant formula 6 hours prior to surgery. - Children will be allowed to drink immediately following surgery. If applicable, please bring a bottle or sippy cup to assist with drinking. Juice, water, soda, and popsicles are readily available. For infants on formula, please bring formula the day of surgery. Pacifiers are allowed. Take the following medications with a SIP of water the morning of surgery: BUPROPION Medications to discontinue per physician __KATLYN IS AWARE PT LAST DOSE ASPIRIN 81 MG 12/30/21 __AND ALL VITAMINS AND SUPPLEMENTS Date to take last dose Please no make-up, nail luxembourgish, hairspray, perfume, deodorant, or body powder the day of surgery. No jewelry (including any body piercings) or valuables the day of surgery, leave them at home. Please take a shower or bath the night before, or the morning of, surgery with an antibacterial soap. Wear comfortable, loose fitting clothing. Children are encouraged to wear pajamas. - Jewelry must be removed prior to entering the operating room. Rings and piercings that are not removed may be cut off. - The hospital will not accept responsibility for valuables. - Please leave all valuables, including medications, at home the day of surgery. If you are going home after surgery, a licensed transit bus driver must drive you home. - NO public transportation without another adult. - We recommend that an adult stay with you for 24 hours following discharge. - We also recommend that you do not drive, make important decision, drink alcoholic beverages, or take any drugs that were not prescribed by your health care provider for at least 24 hours after your discharge time. For Pediatric surgeries, we recommend two adults accompany the child home (only one inside the building at this time). Follow any additional instructions given to you from your surgeon. If you or anyone in your household have experienced Covid symptoms in the past week, please notify your surgeon or the nurse liaison at the phone number below for possible testing. Telephone instructions given to __PATIENT and asked if any additional questions and then verbalized understanding. Patient advised to call surgeon office or pre surgery nurse liaison [phone] if any additional questions.
[2021-12-31 10:17] VITALS: BMI 39.9
--- NOTE | 2021-12-31 11:03 | PM.HPGS ---
History of Present Illness History of Present Illness Consent: Risks, benefits, and alternatives have been discussed and questions answered. Patient agrees to proceed with procedure. Chief complaint: Lt Renal Kidney Stone Narrative: Stefan Kearns is a 66 year old male with a fairly busy urological schedule recently. He is status post left ESWL for a large renal pelvic stone several months ago. That was followed by robotic right partial nephrectomy for renal cell carcinoma. He is having some discomfort with residual stone fragments in his left lower pole calyx and elects for repeat left ESWL. He is aware of the risk including, but not limited to, persistent stone fragments, hematuria and perinephric hematoma. Review of Systems Cardiovascular: Cardiovascular: Denies chest pain, Denies lightheadedness, Denies palpitations and Denies dyspnea Respiratory: Respiratory: Denies dyspnea Gastrointestinal: Gastrointestinal: Denies diarrhea, Denies nausea and Denies vomiting Genitourinary: Genitourinary: Denies hematuria and Denies dysuria Endocrine: Endocrine: Denies palpitations PMFSH Past Medical History Medical History BPH (benign prostatic hyperplasia) Cardiac arrhythmia Chronic depression Colon cancer screening HTN (hypertension) Hyperlipidemia Hypogonadism Hypogonadism in male Hypogonadism in male Morbid obesity with BMI of 45.0-49.9, adult DALTON on CPAP Osteoarthritis, multiple sites Primary hypertension Prostate cancer screening Seasonal allergies Surgical History Surgical History H/O total knee replacement (~2007) left knee H/O total knee replacement (~2015) right knee History of bilateral carpal tunnel release History of lumbar fusion History of lumbar surgery (~2013) lumbar disc fusion L3-L5 History of partial nephrectomy History of total bilateral knee replacement Family History Family History Mother , 89 COPD (chronic obstructive pulmonary disease) Dementia Father , 89 Alzheimer disease Grandparent , 60 Paget's disease Grandparent , 67 Intestinal cancer Grandparent , 53 Pulmonary emboli Grandparent , 54 Alcoholism Cerebral hemorrhage Social History Social History Smoking status: Never smoker Alcohol intake: current Drinks per week: 1 Alcohol use details: one drink q2w Substance use: never Substance use type: does not use Gender identity (if verbalized by the patient): Male Sexual Orientation (if Verbalized by the Patient): Straight or Heterosexual Spiritual care concerns: No Meds Home Medications and Allergies Home Medications Medication Instructions Recorded Confirmed Type atorvastatin 20 mg tablet 40 mg PO QPM 11/06/19 12/31/21 History metoprolol succinate 25 mg 25 mg PO QPM 11/06/19 12/31/21 History tablet,extended release 24 hr spironolactone 25 mg tablet 12.5 mg PO DAILY 11/06/19 12/31/21 History ascorbate calcium (vitamin C) 500 500 mg PO DAILY 11/17/19 12/31/21 History mg tablet aspirin 81 mg tablet,delayed 81 mg PO DAILY 11/17/19 12/31/21 History release (Adult Low Dose Aspirin) cholecalciferol (vitamin D3) 25 25 mcg PO DAILY 11/17/19 12/31/21 History mcg (1,000 unit) capsule famotidine 20 mg tablet (Pepcid AC) 20 mg PO QPM 11/17/19 12/31/21 History multivitamin 1 cap PO DAILY 11/17/19 12/31/21 History omega 4-nfy-lkt-fish oil 1,000 mg 1 cap PO DAILY 11/17/19 12/31/21 History (120 mg-180 mg) capsule (Fish Oil) bupropion HCl 150 mg 24 hr tablet, 150 mg PO BID 03/12/21 12/31/21 History extended release magnesium chloride 64 mg 192 mg PO BID 03/12/21 12/31/21 History tablet,extended release enalapril maleate 20 mg tablet 20 mg PO DA
--- NOTE | 2021-12-31 13:16 | WPDANESEPPF ---
Anes - Initial Pre Proc Eval Procedure: Operation Date: 01/01/22 13:45 Proposed Procedures p Left Extracorporeal Shock Wave Lithotripsy - Kvng Ward MD Date/Time: 12/31/21 13:16 Surgeon: Kvng Ward MD Pre Op Diagnosis: Lt Renal Kidney Stone Patient Data Age: 66 Gender: M Height: 1.65 m Weight: 108.9 kg Allergies Allergy/AdvReac Type Severity Reaction Status Date / Time No Known Allergies Allergy Mild Verified 01/01/22 12:32 Home Medications Medication Instructions Recorded Confirmed Type atorvastatin 20 mg tablet 40 mg PO QPM 11/06/19 01/01/22 History metoprolol succinate 25 mg 25 mg PO QPM 11/06/19 01/01/22 History tablet,extended release 24 hr spironolactone 25 mg tablet 12.5 mg PO DAILY 11/06/19 01/01/22 History ascorbate calcium (vitamin C) 500 500 mg PO DAILY 11/17/19 01/01/22 History mg tablet aspirin 81 mg tablet,delayed 81 mg PO DAILY 11/17/19 01/01/22 History release (Adult Low Dose Aspirin) cholecalciferol (vitamin D3) 25 25 mcg PO DAILY 11/17/19 01/01/22 History mcg (1,000 unit) capsule famotidine 20 mg tablet (Pepcid AC) 20 mg PO QPM 11/17/19 01/01/22 History multivitamin 1 cap PO DAILY 11/17/19 01/01/22 History omega 0-rgt-xre-fish oil 1,000 mg 1 cap PO DAILY 11/17/19 01/01/22 History (120 mg-180 mg) capsule (Fish Oil) bupropion HCl 150 mg 24 hr tablet, 150 mg PO BID 03/12/21 01/01/22 History extended release magnesium chloride 64 mg 192 mg PO BID 03/12/21 01/01/22 History tablet,extended release enalapril maleate 20 mg tablet 20 mg PO DAILY #90 tabs 07/24/21 01/01/22 Rx calcium carbonate 600 mg-vitamin 1 tablet PO DAILY 09/01/21 01/01/22 History D3 10 mcg (400 unit) tablet (Calcium 600 + D(3)) cromolyn 4 % eye drops 1 drp EACH EYE PRN PRN Dry Eye(S) 09/01/21 01/01/22 History cyanocobalamin (vitamin B-12) 1,000 mcg PO DAILY 09/01/21 01/01/22 History 1,000 mcg tablet escitalopram oxalate 10 mg tablet 10 mg PO QPM 09/01/21 01/01/22 History finasteride 5 mg tablet 5 mg PO QPM 09/01/21 01/01/22 History kzqdfxat-ylkrxavrk-kpxevrnlh 3.5 1 drp EACH EAR PRN PRN INFECTION 09/01/21 01/01/22 History mg/mL-10,000 unit/mL-1 % ear solution testosterone cypionate 200 mg/mL 200 mg IM .Q2WK #6 mL 09/04/21 01/01/22 Rx intramuscular oil (Depo-Testosterone) hydrocodone 5 mg-acetaminophen 325 1 - 2 tablet PO Q6H PRN pain #20 09/12/21 01/01/22 Rx mg tablet tabs Patient hx anesthesia problems: none Family hx anesthesia problems: none Results Review: All pre-operative results and documents have been reviewed as part of the pre-operative evaluation. [facility] Past Medical History Medical History BPH (benign prostatic hyperplasia) Cardiac arrhythmia Chronic depression Colon cancer screening HTN (hypertension) Hyperlipidemia Hypogonadism Hypogonadism in male Hypogonadism in male Morbid obesity with BMI of 45.0-49.9, adult [place] on CPAP Osteoarthritis, multiple sites Primary hypertension Prostate cancer screening Seasonal allergies Surgical History Surgical History H/O total knee replacement (~2007) left knee H/O total knee replacement (~2015) right knee History of bilateral carpal tunnel release History of lumbar fusion History of lumbar surgery (~2013) lumbar disc fusion L3-L5 History of partial nephrectomy History of total bilateral knee replacement Family History Family History Mother , 89 COPD (chronic obstructive pulmonary disease) Dementia Father , 89 Alzheimer disease Grandparent , 60 Paget's disease Grandparent , 67 Intestinal cancer Grandparent , 53 Pulmonary emboli Grandparent , 54 Alcoholism Cerebral hemorrhage Social History Social History (Reviewed 10/30/21 @
[2022-01-01] VITALS (9 sets, daily range): BP systolic 102–144; BP diastolic 61–71; PULSE 59–81; RESP 12–18; TEMP 36.3–36.9; O2SAT 97–100
--- NOTE | ~2022-01-01 | XR_ITS ---
EXAMINATION: XR abdomen/kub 1V INDICATION: Urolithiasis TECHNIQUE: Supine views of the abdomen were obtained on 2 radiographs. COMPARISON: 10/08/2021 FINDINGS: A 1.3 cm stone projects in the expected location of the left renal pelvis. No additional ur olithiasis is identified. The bowel gas pattern is normal. There are changes of posterior fusion and laminectomy in the lower lumbar spine. The visualized lung bases are clear. IMPRESSION: 1. 1.3 cm stone projecting in the left renal pelvis. Reviewed, dictated and finalized at location B.
--- NOTE | 2022-01-01 06:50 | WPDHPUPDATE1 ---
History and Physical Update Update Date/Time: 01/01/22 06:50 History and Physical has been reviewed, including an updated exam of the patient. There are NO changes in the patient's condition. Risks, benefits, and alternatives have been discussed and questions answered. Patient agrees to proceed with procedure.
[2022-01-01] MEDS: LACTATED RINGERS 1,000 ML 30 ML IV CONT ×2 (12:51→15:11)
[2022-01-01] MEDS: ceFAZolin 2 GM/D5W 50 ML 2 GM/50 ML BAG IVPB (13:49)
--- NOTE | 2022-01-01 14:32 | W.PM.PROC2 ---
Procedure Note - Detailed Date of Procedure 01/01/22 Pre-op Diagnosis Lt Renal Kidney Stone Post-op Diagnosis Same Procedure Performed Left ESWL Surgeon Kvng Ward MD Description of Procedure The patient was brought to the operative suite where he was placed in the supine position on the Dornier lithotripsy table. The focal point of the lithotripter was placed at a 1cm left renal pelvic calculus. A total of 2500 shocks were delivered at a power setting of 4. There appeared to be good fragmentation of the stone. The patient tolerated the procedure well and was taken to the recovery room in good condition. Drains No Packing No Pathology None sent Complications No immediate complications
--- NOTE | 2022-01-01 15:07 | SUR.PHASEI ---
1504- oral airway removed
== END 2022-01-01 16:25 | disposition home or self-care (01) ==
PROVIDERS: PCP Family Medicine; Visit Provider Urology
PROC: (CPT 50590; principal; 2022-01-01 13:45)
DX: N20.0 Calculus of kidney (principal); Z79.82 Long term (current) use of aspirin; G47.33 Obstructive sleep apnea (adult) (pediatric); I10 Essential (primary) hypertension; N40.0 Benign prostatic hyperplasia without lower urinary tract symptoms; I49.9 Cardiac arrhythmia, unspecified; F32.A Depression, unspecified; E78.5 Hyperlipidemia, unspecified; Z98.1 Arthrodesis status; E66.01 Morbid (severe) obesity due to excess calories; Z68.41 Body mass index [BMI] 40.0-44.9, adult; Z90.5 Acquired absence of kidney; Z85.528 Personal history of other malignant neoplasm of kidney
CPT/HCPCS: 50590; 74018; J0690; J2250; J2704; J3010; J7120

== ENCOUNTER 2022-01-09 08:35 | Outpatient (CLI) | payer MEDICARE, SELFPAY ==
--- NOTE | ~2022-01-09 | XR_ITS ---
EXAMINATION: XR abdomen/kub 1V INDICATION: Left-sided kidney stone post lithotripsy TECHNIQUE: Supine views of the abdomen were obtained on 2 radiographs. COMPARISON: 01/01/2022 FINDINGS: Two stone fragments are identified in the left renal pelvis, consistent with interval litho tripsy of the previously described 13 mm left renal pelvic stone. No additional urolithiasis is ident ified. The bowel gas pattern is normal. There are changes of laminectomy and posterior fusion in the lower lumbar spine. There is mild osteoarthritis of the hips. IMPRESSION: 1. Interval left lithotripsy with two remnant a stone fragments projecting in the left renal pelvis. Reviewed, dictated and finalized at location A. IMPRESSION: 1. Interval left lithotripsy with two remnant a stone fragments projecting in t he left renal pelvis.
== END 2022-01-09 08:36 | disposition home or self-care (01) ==
PROVIDERS: PCP Family Medicine; Visit Provider Urology
DX: N20.0 Calculus of kidney (principal)
CPT/HCPCS: 74018

== ENCOUNTER 2022-02-12 01:26 | Day surgery (SDC) | payer MEDICARE, SELFPAY ==
[2022-02-05 08:23] VITALS: BMI 41.5
--- NOTE | 2022-02-05 08:32 | PC.NURSE ---
Report to the Outpatient Waiting Room, entrance under the green pavilion located off [facility], at time __1115 on date ___02/12/22____. OR Time: __1:15 PM . Time changes happen often and if your time is changed the preop area will call you the afternoon before. - You and your visitor will be asked to self-screen and do not enter if you have any COVID symptoms. - Only one visitor and NO children visitors are allowed at this time. - The patient visitor is requested to leave or wait in car when not with patient due to restrictions. - A mask is required within the hospital. Patients may have clear liquids (water, carbonated beverages, clear teas, apple juice) until 3 hours prior to surgery (1015 AM) with a maximum of 20 ounces. - No food from midnight until time of surgery - Infants may have breast milk until 4 hours before surgery, formula 6 hours prior to surgery. - Children will be allowed to drink immediately following surgery. If applicable, please bring a bottle or sippy cup to assist with drinking. Juice, water, soda, and popsicles are readily available. For infants on formula, please bring formula the day of surgery. Pacifiers are allowed. Take the following medications with a SIP of water the morning of surgery: BUPROPION Medications to discontinue per physician __STATES TO STOP ASPIRIN, VITAMINS, SUPPLEMENTS 7 DAYS PRIOR TO SURGERY PER DR. LORA'S INSTRUCTIONS Date to take last dose 02/04/22 Please no make-up, nail icelandic, hairspray, perfume, deodorant, or body powder the day of surgery. No jewelry (including any body piercings) or valuables the day of surgery, leave them at home. Please take a shower or bath the night before, or the morning of, surgery with an antibacterial soap. Wear comfortable, loose fitting clothing. Children are encouraged to wear pajamas. - Jewelry must be removed prior to entering the operating room. Rings and piercings that are not removed may be cut off. - The hospital will not accept responsibility for valuables. - Please leave all valuables, including medications, at home the day of surgery. If you are going home after surgery, a licensed tow driver must drive you home. - NO public transportation without another adult. - We recommend that an adult stay with you for 24 hours following discharge. - We also recommend that you do not drive, make important decision, drink alcoholic beverages, or take any drugs that were not prescribed by your health care provider for at least 24 hours after your discharge time. For Pediatric surgeries, we recommend two adults accompany the child home (only one inside the building at this time). Follow any additional instructions given to you from your surgeon. If you or anyone in your household have experienced Covid symptoms in the past week, please notify your surgeon or the nurse liaison at the phone number below for possible testing. Telephone instructions given to __PT and asked if any additional questions and then verbalized understanding. Patient advised to call surgeon office or pre surgery nurse liaison [phone] if any additional questions.
--- NOTE | 2022-02-11 13:52 | WPDANESEPPF ---
Anes - Initial Pre Proc Eval Procedure: Operation Date: 02/12/22 13:15 Proposed Procedures p Cystoscopy, Left Ureterosopy, Left Stone Extraction, Bladder Stone Removal, Possible Left Retrograde Pyelogram, Possible Left Stent Placement, Possible Holmium Laser - Kvng Ward MD Date/Time: 02/11/22 13:52 Surgeon: Kvng Ward MD Pre Op Diagnosis: Left Renal & Bladder Stones Patient Data Age: 66 Gender: M Height: 1.65 m Weight: 113.4 kg Allergies Allergy/AdvReac Type Severity Reaction Status Date / Time No Known Allergies Allergy Mild Verified 02/12/22 11:35 Home Medications Medication Instructions Recorded Confirmed Type atorvastatin 20 mg tablet 40 mg PO QPM 11/06/19 02/12/22 History metoprolol succinate 25 mg 25 mg PO QPM 11/06/19 02/12/22 History tablet,extended release 24 hr spironolactone 25 mg tablet 12.5 mg PO DAILY 11/06/19 02/12/22 History ascorbate calcium (vitamin C) 500 500 mg PO DAILY 11/17/19 02/12/22 History mg tablet aspirin 81 mg tablet,delayed 81 mg PO DAILY 11/17/19 02/12/22 History release (Adult Low Dose Aspirin) cholecalciferol (vitamin D3) 25 25 mcg PO DAILY 11/17/19 02/12/22 History mcg (1,000 unit) capsule famotidine 20 mg tablet (Pepcid AC) 20 mg PO QPM 11/17/19 02/12/22 History multivitamin 1 cap PO DAILY 11/17/19 02/12/22 History omega 5-iys-gvk-fish oil 1,000 mg 1 cap PO DAILY 11/17/19 02/12/22 History (120 mg-180 mg) capsule (Fish Oil) bupropion HCl 150 mg 24 hr tablet, 150 mg PO BID 03/12/21 02/12/22 History extended release magnesium chloride 64 mg 192 mg PO BID 03/12/21 02/12/22 History tablet,extended release enalapril maleate 20 mg tablet 20 mg PO DAILY #90 tabs 07/24/21 02/12/22 Rx calcium carbonate 600 mg-vitamin 1 tablet PO DAILY 09/01/21 02/12/22 History D3 10 mcg (400 unit) tablet (Calcium 600 + D(3)) cromolyn 4 % eye drops 1 drp EACH EYE PRN PRN Dry Eye(S) 09/01/21 02/12/22 History cyanocobalamin (vitamin B-12) 1,000 mcg PO DAILY 09/01/21 02/12/22 History 1,000 mcg tablet finasteride 5 mg tablet 5 mg PO QPM 09/01/21 02/12/22 History hnxttrrj-qsvppovxs-sqrsthaht 3.5 1 drp EACH EAR PRN PRN INFECTION 09/01/21 02/12/22 History mg/mL-10,000 unit/mL-1 % ear solution testosterone cypionate 200 mg/mL 200 mg IM .Q2WK #6 mL 09/04/21 02/12/22 Rx intramuscular oil (Depo-Testosterone) hydrocodone 5 mg-acetaminophen 325 1 - 2 tablet PO Q6H PRN pain #20 01/01/22 02/12/22 Rx mg tablet tabs escitalopram oxalate 10 mg tablet 10 mg PO QPM #30 tabs 01/09/22 02/12/22 Rx amoxicillin 500 mg capsule See Rx Instructions .Route .COMPLEX 02/05/22 02/12/22 History Patient hx anesthesia problems: none Family hx anesthesia problems: none Results Review: All pre-operative results and documents have been reviewed as part of the pre-operative evaluation. [facility] Past Medical History Medical History BPH (benign prostatic hyperplasia) Cardiac arrhythmia Chronic depression Colon cancer screening HTN (hypertension) Hyperlipidemia Hypogonadism Hypogonadism in male Hypogonadism in male Morbid obesity with BMI of 45.0-49.9, adult D[place] on CPAP Osteoarthritis, multiple sites Primary hypertension Prostate cancer screening Seasonal allergies Surgical History Surgical History H/O total knee replacement (~2007) left knee H/O total knee replacement (~2015) right knee History of bilateral carpal tunnel release History of lumbar fusion History of lumbar surgery (~2013) lumbar disc fusion L3-L5 History of partial nephrectomy History of total bilateral knee replacement Family History Family History Mother , 89 COPD (chronic obstructive pulmonary disease) Dementia Father , 89 Alzheimer disease Grandparent , 60 Paget's di
--- NOTE | ~2022-02-12 | XR_ITS ---
EXAMINATION: XR retrograde pyelo w/stent LT DATE: 02/12/2022 12:58 INDICATION: Ureteral stone. TECHNIQUE: 33 intraoperative fluoroscopic views of the abdomen and pelvis were obtained. I was not pr esent. Fluoroscopy exposure time was 64 seconds. COMPARISON: CT abdomen and pelvis 10/26/2021 FINDINGS: The left-sided retrograde pyelogram is unremarkable. The final images demonstrate a left in ternal ureteral stent in expected position. There are changes of posterior fusion procedure in lumbar spine. IMPRESSION: 1. Left internal ureteral stent in expected position. Reviewed, dictated and finalized at location A.
--- NOTE | 2022-02-12 06:23 | WPDHPUPDATE1 ---
History and Physical Update Update Date/Time: 02/12/22 06:23 History and Physical has been reviewed, including an updated exam of the patient. There are NO changes in the patient's condition. Risks, benefits, and alternatives have been discussed and questions answered. Patient agrees to proceed with procedure.
[2022-02-12 11:15] VITALS: BP 116/68; PULSE 69; RESP 18; TEMP 36.9; O2SAT 97
[2022-02-12] MEDS: LACTATED RINGERS 1,000 ML 30 ML IV CONT (11:30)
[2022-02-12] MEDS: ceFAZolin 2 GM/D5W 50 ML 2 GM/50 ML BAG IVPB (12:12)
[2022-02-12] MEDS: LIDOCAINE HCL 2% GEL UROJET 10 ML PKG MUCOUS MEM (12:27)
--- NOTE | 2022-02-12 12:57 | W.PM.PROC2 ---
Procedure Note - Detailed Date of Procedure 02/12/22 Pre-op Diagnosis Left Ureteral & Bladder Stones Post-op Diagnosis Other (Left ureteral stone) Procedure Performed Cystoscopy, left ureteroscopy with laser lithotripsy, stone extraction, left retrograde pyelogram left ureteral stent placement Surgeon Kvng Ward MD Description of Procedure is brought the op suite was prepped draped in routine sterile fashion while in dorsal lithotomy position after the uneventful induction of a general LMA anesthetic. Cystoscopy is undertaken with a 19 F rigid cystoscope. He has no urethra stricture with notable prostate enlargement with a small median lobe. Bladder itself is endoscopically normal. There are no intravesical stones. There was no other foreign bodies in the mucosa is normal without hyperemia or neoplasm. A 0.035 in glidewire was advanced into his single left ureteral orifice. The distal ureter was dilated with an 8 F 10 F dilator. Ureteroscopy was undertaken with a short tapered semi-rigid ureteral scope. His impacted fragment in the distal left ureter as described above. Using the 273 micron holmium laser fiber a fracture to this end small pieces using a dusting. With a 1.9 F disposable stone basket extracted all pieces and then placed a 4.8 F variable length stent with the proximal coil in renal pelvis and distal coil in the bladder. The retrograde pyelogram had been obtained through the ureteral scope to ensure appropriate positioning of the stent. Scope was removed the patient was taken recovery room in good condition. Drains Yes Complications No immediate complications Condition Stable Disposition PACU
[2022-02-12 13:02] VITALS: BP 145/84; PULSE 80; RESP 12; TEMP 36.5; O2SAT 97
[2022-02-12 13:15] VITALS: BP 118/70; PULSE 81; RESP 18; O2SAT 100
[2022-02-12 13:30] VITALS: BP 132/82; PULSE 88; RESP 12; O2SAT 96
--- NOTE | 2022-02-12 13:33 | SUR.PHASEI ---
7112 - dr. guzman at bedside. assessing gonzales catheter output. pt to have gonzales catheter in op recovery and may remove before pt is discharged per dr. guzman
[2022-02-12 14:00] VITALS: BP 130/76; PULSE 82; RESP 20
--- NOTE | 2022-02-12 14:24 | SUR.PHASEII ---
1420 - gonzales removed. pt adrianna well
[2022-02-12 14:25] VITALS: BP 137/57; PULSE 78; RESP 20
== END 2022-02-12 14:42 | disposition home or self-care (01) ==
PROVIDERS: PCP Family Medicine; Visit Provider Urology
PROC: (CPT 52352; principal; 2022-02-12 13:15)
DX: N20.1 Calculus of ureter (principal); Z85.528 Personal history of other malignant neoplasm of kidney
CPT/HCPCS: 52356; 74420; 82365; 88300; A9270; C1769; C2617; J0690; J1100; J2250; J2405; J2704; J3010; J7120

== ENCOUNTER 2022-03-04 10:26 | Outpatient (CLI) | payer MEDICARE, SELFPAY ==
--- NOTE | ~2022-03-04 | XR_ITS ---
XR abdomen/kub 1V DATE: 03/04/2022 10:57 INDICATION: Difficulty urinating. History of left sided stone, kidney cancer. TECHNIQUE: Supine AP views COMPARISON: 02/12/2022 left retrograde pyelogram 01/09/2022 KUB FINDINGS: 2 calcified calculi overlying the left midabdomen on 01/09/2022 are normal longer evident in this location. One of these may be overlying the right pelvis, possibly a urinary bladder calcified s tone. Noncontrast CT abdomen pelvis would be more definitive for evaluation of urinary tract calculi. No evidence of bowel obstruction. The psoas shadows are intact. No visceromegaly is evident. Heart size appears normal. Lower lung zones appear clear. Diffuse idiopathic skeletal hyperostosis of the thoracic spine. Status post lumbar laminectomy and post posterior surgical fusion at L3-L5. Degenerative disease of t he lumbar and lumbosacral spine. Dextroscoliosis of the thoracolumbar spine. IMPRESSION: Possible calcified bladder stone Reviewed, dictated and finalized at Location A. Reviewed, dictated and finalized at location A.
== END 2022-03-04 10:27 | disposition home or self-care (01) ==
LOC: ANHIMG 10:31
PROVIDERS: PCP Family Medicine; Visit Provider Urology
DX: N20.0 Calculus of kidney (principal)
CPT/HCPCS: 74018

== ENCOUNTER 2022-03-13 21:11 | Inpatient (IN) | payer MEDICARE, SELFPAY ==
--- NOTE | ~2022-03-13 | CT_ITS ---
EXAMINATION: CT abdomen pelvis w con DATE: 03/14/2022 03:36 INDICATION: Left groin pain, scrotal pain. Urinary tract infection. History of kidney stones. TECHNIQUE: Computed tomography (CT) of the abdomen and pelvis was performed with 100 CC Omnipaque 350 intravenous contrast. Automated exposure control and iterative reconstruction technique were employe d. Exam dose: 1924.06 mGy-cm total exam DLP. COMPARISON: 10/26/2021 CT abdomen pelvis FINDINGS: The lung bases are clear. Normal heart size. No pericardial or pleural effusion. The liver, gallbladder, bile ducts, pancreas, pancreatic duct and spleen are unremarkable. 2.1 x 2.5 cm left adrenal myelolipoma. Normal right adrenal gland. There are couple small right renal cysts. Probable left renal cyst. Postoperative change of the lower pole left kidney. No right urinary tract calculus or hydroureteronephrosis. There is mildly diminished intensity of enhancement of the left kidney compared to the right and jamel nephric left stranding, with some enhancement of the left renal pelvis and left ureteral nathan in add ition to left perinephric and periureteral stranding, suggesting left pyelonephritis. There is modera te diffuse thickening of the urinary bladder and mild fat stranding around the urinary bladder which may indicate cystitis. Recommend correlation with urinalysis. Normal caliber of the abdominal aorta. No intraperitoneal or retroperitoneal or pelvic mass lesion or adenopathy or ascites. There is prostate enlargement, impressing the base of the urinary bladder No bowel obstruction, bowel wall thickening, pneumatosis or intraperitoneal free air. Normal appendix . Posterior lumbar surgical fusion. Diffuse idiopathic skeletal hyperostosis of the thoracic spine. IMPRESSION: Left pyelonephritis and possible cystitis; recommend correlation with urinalysis Postoperative change of the lower pole left kidney. Renal cysts Left adrenal myelolipoma Prostate enlargement Posterior lumbar surgical fusion Reviewed, dictated and finalized at [facility] Reviewed, dictated and finalized at [facility]. IMPRESSION: Left pyelonephritis and possible cystitis; recommend correlation w ith urinalysis Postoperative change of the lower pole left kidney. Renal cysts Left adrenal myelolipoma Prostate enlargement Posterior lumbar surgical fusion
--- NOTE | ~2022-03-13 | US_ITS ---
US scrotum doppler DATE: 03/14/2022 08:06 INDICATION: Left scrotal swelling, tenderness, pain TECHNIQUE: Real-time and color flow imaging and Doppler analysis of the scrotal contents COMPARISON: None FINDINGS: The right testicle measures 3.2 x 1.7 x 1.4 cm. The left testicle measures 3.5 x 2 x 1.9 cm . There is asymmetric increased vascularity to the left testicle and epididymis. There is asymmetric en largement of the left epididymis. No testicular mass lesion is evident. There is mild septated hydrocele on the left. No varicocele is noted. IMPRESSION: Left epididymis with prominent increased vascularity, consistent with left epididymitis. There is pro bable mild left orchitis as well Mild septated left hydrocele Reviewed, dictated and finalized at [facility] Reviewed, dictated and finalized at [facility]. IMPRESSION: Left epididymis with prominent increased vascularity, consistent with left epid idymitis. There is probable mild left orchitis as well Mild septated left hydrocele
[2022-03-13 21:17] VITALS: BP 113/62; PULSE 115; RESP 20; TEMP 36.3; O2SAT 97
[2022-03-13 23:05] LABS: Appearance Urine Clear (Clear); Basophils Percent Auto 0.2 % (0.2-1.2); Bilirubin Urine Negative (Negative); Blood Urine 2+ (Negative); Color Urine Yellow (Yellow); Eosinophils Percent Auto 0.1 % (0-4.4); Glucose Urine UA Negative (Negative); Hematocrit 40.6 % (42.0-52.0); Hemoglobin 12.8 g/dL (14.0-18.0); Immature Granulocyte Absolute 0.09 K/mm3 (0.00-0.031); Immature Granulocyte Percent A 0.7 % (0-0.5); Ketones Urine Trace mg/dL (Negative); Leukocyte Esterase Ur 2+ LEU/UL (Negative); Lymphocytes Absolute Auto 1.04 K/mm3 (0.9-3.2); Lymphocytes Percent Auto 8.3 % (18.3-44.2); Mean Corpuscular HGB Conc 31.5 g/dl (32-36); Mean Corpuscular Hemoglobin 29.8 pg (26-34); Mean Corpuscular Volume 94.6 fl (80-100); Mean Platelet Volume 9.3 fl (7.4-10.4); Monocytes Absolute Auto 1.1 K/mm3 (0.1-0.6); Monocytes Percent Auto 8.9 % (2.6-8.5); Neutrophils Absolute Auto 10.2 K/mm3 (1.3-6.7); Neutrophils Percent Auto 81.8 % (45.5-73.1); Nitrate Urine Positive (Negative); Platelet Count Result 252 k/mm3 (150-375); Protein Urine 1+ mg/dL (Negative); Red Blood Count 4.29 M/mm3 (4.6-6.20); Red Cell Distribution Width 13.4 % (11.5-14.5); Specific Grav Ur 1.015 (1.001-1.035); Urobilinogen Urine 0.2 mg/dL (<2.0); White Blood Count 12.5 K/mm3 (4.5-10.0); pH Urine 5.5 (5.0-9.0)
[2022-03-13 23:08] LABS: Bacteria Urine 3+ /hpf; Mucus Urine Few /lpf; RBC Urine 21-50 /hpf (0-2); Squamous Epithelial Cell Urine Rare /hpf (Few); WBC Urine >75 /hpf
[2022-03-13 23:09] LABS: Add Urine Microscopic? YES
[2022-03-13 23:21] LABS: Alanine Aminotransferase 38 U/L (6-50); Albumin Level 3.9 g/dL (3.5-5.1); Alkaline Phosphatase 95 U/L (38-126); Anion Gap 13 mmol/L (8-16); Aspartate Amino Transferase 51 U/L (17-59); Bilirubin,Total 0.6 mg/dL (0.2-1.3); Blood Urea Nitrogen 21 mg/dL (9-20); Calcium 8.9 mg/dL (8.4-10.2); Carbon Dioxide 22 mmol/L (22-30); Chloride 98 mmol/L (98-107); Estimated CRCL calculation 43 ml/min; Estimated Glomerular Filt Rate 38; Glucose 118 mg/dL (65-110); Lipase 127 U/L (23-300); Potassium 4.4 mmol/L (3.4-5.0); Sodium 133 mmol/L (137-145)
[2022-03-14] VITALS (29 sets, daily range): BP systolic 92–154; BP diastolic 56–86; PULSE 74–137; RESP 16–24; TEMP 36.4–38.1; O2SAT 93–98; BMI 41.4
[2022-03-14] MEDS: SODIUM CHLORIDE 0.9% IV 1,000 ML 999 ML IV CONT ×2 (01:02→03:42)
--- NOTE | 2022-03-14 01:09 | ED.MALEGU ---
HPI - Male Genitourinary General Chief complaint: Urogenital-Male <Keke Kingston PA-C - Last Filed: 03/14/22 04:12> Stated complaint: groin pain <Keke Kingston PA-C - Last Filed: 03/14/22 04:12> Time Seen by Provider: 03/14/22 00:50 <Keke Kingston PA-C - Last Filed: 03/14/22 04:12> Source: patient <ABEBA Perez Last Filed: 03/14/22 04:12> Mode of arrival: ambulatory <Keke Kingston PA-C - Last Filed: 03/14/22 04:12> Limitations: no limitations <Keke Kingston PA-C - Last Filed: 03/14/22 04:12> History of Present Illness HPI Narrative: This is a 66 year old male that presents to the ER for fevers and chills noted today. Reports associated left groin/testicular pain. Reports difficulty urinating. Reports history of multiple UTIs and kidney stones. His urologist is Dr. Ward. Denies vomiting or flank pain. <Keke Kingston PA-C - Last Filed: 03/14/22 04:12> Related Data Home medications: Home Medications Medication Instructions Recorded Confirmed atorvastatin 20 mg tablet 40 mg PO QPM 11/06/19 02/20/22 metoprolol succinate 25 mg 25 mg PO QPM 11/06/19 02/20/22 tablet,extended release 24 hr spironolactone 25 mg tablet 12.5 mg PO DAILY 11/06/19 02/20/22 ascorbate calcium (vitamin C) 500 500 mg PO DAILY 11/17/19 02/20/22 mg tablet aspirin 81 mg tablet,delayed 81 mg PO DAILY 11/17/19 02/20/22 release (Adult Low Dose Aspirin) cholecalciferol (vitamin D3) 25 25 mcg PO DAILY 11/17/19 02/20/22 mcg (1,000 unit) capsule famotidine 20 mg tablet (Pepcid AC) 20 mg PO QPM 11/17/19 02/20/22 multivitamin 1 cap PO DAILY 11/17/19 02/20/22 omega 7-rsq-fmj-fish oil 1,000 mg 1 cap PO DAILY 11/17/19 02/20/22 (120 mg-180 mg) capsule (Fish Oil) bupropion HCl 150 mg 24 hr tablet, 150 mg PO BID 03/12/21 02/20/22 extended release magnesium chloride 64 mg 192 mg PO BID 03/12/21 02/20/22 tablet,extended release calcium carbonate 600 mg-vitamin 1 tablet PO DAILY 09/01/21 02/20/22 D3 10 mcg (400 unit) tablet (Calcium 600 + D(3)) cromolyn 4 % eye drops 1 drp EACH EYE PRN PRN Dry Eye(S) 09/01/21 02/20/22 cyanocobalamin (vitamin B-12) 1,000 mcg PO DAILY 09/01/21 02/20/22 1,000 mcg tablet finasteride 5 mg tablet 5 mg PO QPM 09/01/21 02/20/22 [id number]-zeqbzipsk 3.5 1 drp EACH EAR PRN PRN INFECTION 09/01/21 02/20/22 mg/mL-10,000 unit/mL-1 % ear solution amoxicillin 500 mg capsule See Rx Instructions .Route .COMPLEX 02/05/22 02/20/22 <Keke Knigston PA-C - Last Filed: 03/14/22 04:12> Allergies/Adverse reactions: Allergies Allergy/AdvReac Type Severity Reaction Status Date / Time No Known Allergies Allergy Mild Verified 03/09/22 14:21 <Keke Kingston PA-C - Last Filed: 03/14/22 04:12> Review of Systems Review of Systems: CONSTITUTIONAL: Reports fever, chills GASTROINTESTINAL: Denies nausea, vomiting GENITOURINARY: Reports dysuria. Denies hematuria. <Keke Kingston PA-C - Last Filed: 03/14/22 04:12> All systems reviewed & are unremarkable except as noted in HPI and below <Keke Kingston PA-C - Last Filed: 03/14/22 04:12> [facility] Past Medical History Medical History: Medical History BPH (benign prostatic hyperplasia) Cardiac arrhythmia Chronic depression Colon cancer screening HTN (hypertension) Hyperlipidemia Hypogonadism Hypogonadism in male Hypogonadism in male Morbid obesity with BMI of 45.0-49.9, adult DALTON on CPAP Osteoarthritis, multiple sites Primary hypertension Prostate cancer screening Seasonal allergies <Keke Kingston PA-C - Last Filed: 03/14/22 04:12> Surgical History Surgical History: Surgical History H/O total knee replacement (~2007) left knee H/O total knee replacement (~2015) right knee History of bilateral carpal tunnel release History of lumbar fusion History of [place]
[2022-03-14 01:48] LABS: SARS-CoV-2 RNA PCR Negative
[2022-03-14 02:01] LABS: Lactic Acid Reflex 0.9 mmol/L (0.7-2.0)
--- NOTE | 2022-03-14 03:56 | ECG_ITS ---
Measurements Intervals Hardy Rate: 108 P: NE: 0 QRS: 40 QRSD: 94 T: 10 QT: 318 QTc: 427 Interpretive Statements ATRIAL FIBRILLATION WITH RAPID VENTRICULAR RESPONSE EARLY PRECORDIAL R/S TRANSITION BASELINE ARTIFACT- I, III ABNORMAL ECG NO PREVIOUS ECG AVAILABLE FOR COMPARISON Electronically Signed On 03-14-2022 7:36:18 CDT by Phu Mcgrath D.O.
[2022-03-14] MEDS: METOPROLOL TARTRATE INJ 5 MG/5 ML VIAL IV PUSH (04:15)
--- NOTE | 2022-03-14 07:50 | PC.NURSE ---
Pt in US at this time
--- NOTE | 2022-03-14 08:25 | PC.NURSE ---
breakfast tray ordered per request of patient hot tea ordered
--- NOTE | 2022-03-14 08:32 | PC.NURSE ---
ordered pt breakfast tray
--- NOTE | 2022-03-14 09:29 | PM.CNCAR ---
Assessment and Plan Assessment and plan (1) Atrial fibrillation with RVR: Code(s): I48.91 - Unspecified atrial fibrillation Status: Acute Assessment and Plan: Duration unknown suspect recent onset AFib with RVR relatively asymptomatic hemodynamically stable. Multifactorial etiology including recent illness/infection, risk factors including age, hypertension, CAD with CHADS2 Vasc score at least 3. Systemic anticoagulation advised. Should clarify with Neurology prior to initiation of anticoagulation if any surgical intervention required. Discussed pathophysiology, management options including rate versus rhythm control at length. All questions answered to his satisfaction. As patient is tolerating well heart rate is moderately elevated will initiate oral AV tyrel blocking agents with metoprolol 50 mg p.o. q.12 hours potentially increasing the q.8 hours heart rate requires and blood pressure tolerates. Continue hydration, antibiotics, supportive care. Anticipate improved control with treatment of underlying infection. We discussed BEVERLY guided cardioversion given unknown duration of AFib to exclude intracardiac thrombus and reduce stroke risk versus more conservative rate control management at this time. Patient is comfortable plan of care. Recommendations to follow. DVT prophylaxis in the interval. Consider addition of Xarelto 15 mg q.h.s. depending on renal function or Eliquis 5 mg b.i.d. once anticipated Urologic management has been clarified. (2) Acute pyelonephritis: Code(s): N10 - Acute pyelonephritis Status: Acute Assessment and Plan: Management per primary service and Neurology. (3) CAD (coronary artery disease): Code(s): I25.10 - Atherosclerotic heart disease of [place] coronary artery without angina pectoris Status: Acute Assessment and Plan: History of nonobstructive CAD by CT coronary angiography. No anginal symptoms. Aspirin 81 mg daily, continuation of statin, beta-moris therapy. (4) MALDONADO (acute kidney injury): Code(s): N17.9 - Acute kidney failure, unspecified Status: Acute Assessment and Plan: Monitor renal function closely. History of chronic CKD with acute injury baseline stage III. Management per primary service and meds nephrotoxic agents. (5) Sepsis: Code(s): A41.9 - Sepsis, unspecified organism Status: Acute Assessment and Plan: Stabilizing with supportive care and antibiotics. Management per primary service and Neurology. (6) Essential hypertension: Code(s): I10 - Essential (primary) hypertension Status: Acute Assessment and Plan: Stable. No acute issues at this time. (7) DALTON on CPAP: Code(s): G47.33 - Obstructive sleep apnea (adult) (pediatric); Z99.89 - Dependence on other enabling machines and devices Status: Acute Assessment and Plan: Encourage resumption of CPAP management for DALTON. Untreated DALTON may certainly increase risk for arrhythmia development including atrial fibrillation. Patient verbalized understanding (8) Hyperlipidemia: Qualifiers: Hyperlipidemia type: unspecified Qualified Code(s): E78.5 - Hyperlipidemia, unspecified Code(s): E78.5 - Hyperlipidemia, unspecified Status: Acute Assessment and Plan: continue atorvastatin 40 mg at bedtime. History of Present Illness History of Present Illness Consult date/time: Date of service:03/14/22 09:29 Requesting physician: Aranza Barrios MD Consult reason: atrial fibrillation Reason For Visit: pyelonephritis, atrial fibrilation w/ RVR, MALDONADO Narrative: Patient is a pleasant 66-year-old male with a history of nonobstructive CAD by CT coronary angiography followed by Dr. Teddy Soliman, history of DALTON on CPAP, hypertension, hyperlipidemia, and morbid obesity with recent complicated urologic history including recurrent renal stones, UTI/ sepsis, cyst removal and
--- NOTE | 2022-03-14 10:05 | ADMGEN ---
This patient, Stefan Kearns, was admitted to IMU Room 213-01 at 0905. Patient/family oriented to hospital policies and general routines including ID bracelet, bed and alarms, visiting hours, pain management, procedures, bathroom and other care routines, personal items, smoking policy, room service/diet, and visiting hours. Information on how to activate the Rapid Response Team has been discussed. Patient/Family are encouraged to report perceived risks to care and to ask questions if they do not understand what they are told or what they should do.
--- NOTE | 2022-03-14 11:57 | PM.IMHP ---
H&P: HPI History of Present Illness Date/Time: 03/14/22 11:57 [facility] Past Medical History Medical History BPH (benign prostatic hyperplasia) Cardiac arrhythmia Chronic depression Colon cancer screening HTN (hypertension) Hyperlipidemia Hypogonadism Hypogonadism in male Hypogonadism in male Morbid obesity with BMI of 45.0-49.9, adult DALTON on CPAP Osteoarthritis, multiple sites Primary hypertension Prostate cancer screening Seasonal allergies Surgical History Surgical History H/O total knee replacement (~2007) left knee H/O total knee replacement (~2015) right knee History of bilateral carpal tunnel release History of lumbar fusion History of lumbar surgery (~2013) lumbar disc fusion L3-L5 History of partial nephrectomy History of total bilateral knee replacement Family History Family History Mother , 89 COPD (chronic obstructive pulmonary disease) Dementia Father , 89 Alzheimer disease Grandparent , 60 Paget's disease Grandparent , 67 Intestinal cancer Grandparent , 53 Pulmonary emboli Grandparent , 54 Alcoholism Cerebral hemorrhage Social History Social History Smoking status: Never smoker Second hand tobacco smoke exposure: No Alcohol intake: never Drinks per week: 1 Alcohol use details: one drink q2w Substance use: never Substance use type: does not use Has the Lack of Transportation Kept You From Medical Appointments or From Getting Medications?: No Within the Past 12 Months, Were You Worried Whether Your Food Would Run Out Before You Got Money to Buy More?: Never True What is Your Housing Situation Today?: I Have Housing Are You Worried That in the Next 2 Months, You May Not Have Your Own Housing to Live In?: No Do You Have Trouble Paying Your Heating Or Electricity Bill?: No Do You Have Trouble Paying For Medicines?: No Are You Currently Unemployed and Looking for Work?: No Highest Level of Education Completed: Associate Degree Do You Have Trouble With Childcare or the Care of a Family Member?: No Gender identity (if verbalized by the patient): Male Sexual Orientation (if Verbalized by the Patient): Straight or Heterosexual Spiritual care concerns: No Meds Home Medications and Allergies Home Medications Medication Instructions Recorded Confirmed Type atorvastatin 20 mg tablet 20 mg PO QPM 11/06/19 03/14/22 History metoprolol succinate 25 mg 25 mg PO QPM 11/06/19 03/14/22 History tablet,extended release 24 hr spironolactone 25 mg tablet 12.5 mg PO DAILY 11/06/19 03/14/22 History ascorbate calcium (vitamin C) 500 500 mg PO DAILY 11/17/19 03/14/22 History mg tablet aspirin 81 mg tablet,delayed 81 mg PO DAILY 11/17/19 03/14/22 History release (Adult Low Dose Aspirin) cholecalciferol (vitamin D3) 25 25 mcg PO DAILY 11/17/19 03/14/22 History mcg (1,000 unit) capsule famotidine 20 mg tablet (Pepcid AC) 20 mg PO QPM 11/17/19 03/14/22 History multivitamin 1 cap PO DAILY 11/17/19 03/14/22 History omega 8-ywu-qzw-fish oil 1,000 mg 1 cap PO DAILY 11/17/19 03/14/22 History (120 mg-180 mg) capsule (Fish Oil) bupropion HCl 150 mg 24 hr tablet, 150 mg PO BID 03/12/21 03/14/22 History extended release magnesium chloride 64 mg 192 mg PO BID 03/12/21 03/14/22 History tablet,extended release enalapril maleate 20 mg tablet 20 mg PO DAILY #90 tabs 07/24/21 03/14/22 Rx calcium carbonate 600 mg-vitamin 1 tablet PO DAILY 09/01/21 03/14/22 History D3 10 mcg (400 unit) tablet (Calcium 600 + D(3)) cromolyn 4 % eye drops 1 drp EACH EYE PRN PRN Dry Eye(S) 09/01/21 03/14/22 History cyanocobalamin (vitamin B-12) 1,000 mcg PO DAILY 09/01/21 03/14/22 History 1,000 mcg
[2022-03-14] MEDS: METOPROLOL TARTRATE 50 MG TAB PO ×2 (12:31→20:51)
--- NOTE | 2022-03-14 13:08 | WPDURCON ---
Assessment and Plan Assessment and plan (1) Orchitis and epididymitis, unspecified: Code(s): N45.3 - Epididymo-orchitis Status: Acute (2) Acute pyelonephritis: Code(s): N10 - Acute pyelonephritis Status: Acute Assessment and Plan: Status post recent ESWL for large left kidney stone, bladder stone extraction and right partial nephrectomy for renal cell carcinoma (all separate procedures). Admitted with clinical picture of left pyelonephritis and left epididymitis. Additionally as new onset atrial fibrillation. No obstructive uropathy dictating placement of ureteral stent Anticipate 2 week course of appropriate antibiotics ( based on culture results). Agree with Levaquin as a starting broad-spectrum choice. Urology Consult Note HPI Date Seen: 03/14/22 Requesting Physician: Linda Pulliam MD Primary Care Provider: Phyllis Love MD Consult Narrative Narrative: Stefan Kearns is a 66 year old male very well known to our practice having undergone several urological procedures in the recent past. He 1st underwent left ESWL (which ventrally require 2 treatments) for stone in his left kidney. Around that time he also underwent right partial nephrectomy for right renal cell carcinoma. Just last week he underwent cystoscopy with extraction of a bladder calculus that was causing and irritable voiding. He now presents with fevers and chills. CT imaging shows mild left hydronephrosis with ureteral wall thickening consistent with an upper tract infection. Additionally his genitalia show findings of left epididymitis. In addition to the above he has been found to have new onset atrial fibrillation. He is being admitted for antibiotics and cardiac evaluation. He denies significant voiding symptoms or hematuria. Review of Systems Constitutional: Constitutional: Reports chills and Reports fever(s) Cardiovascular: Cardiovascular: Denies chest pain, Denies lightheadedness, Denies palpitations and Denies dyspnea Respiratory: Respiratory: Denies dyspnea Gastrointestinal: Gastrointestinal: Denies diarrhea, Denies nausea and Denies vomiting Genitourinary: Genitourinary: Denies hematuria and Denies dysuria Endocrine: Endocrine: Denies palpitations PMFSH Past Medical History Medical History BPH (benign prostatic hyperplasia) Cardiac arrhythmia Chronic depression Colon cancer screening HTN (hypertension) Hyperlipidemia Hypogonadism Hypogonadism in male Hypogonadism in male Morbid obesity with BMI of 45.0-49.9, adult DALTON on CPAP Osteoarthritis, multiple sites Primary hypertension Prostate cancer screening Seasonal allergies Surgical History Surgical History H/O total knee replacement (~2007) left knee H/O total knee replacement (~2015) right knee History of bilateral carpal tunnel release History of lumbar fusion History of lumbar surgery (~2013) lumbar disc fusion L3-L5 History of partial nephrectomy History of total bilateral knee replacement Family History Family History Mother , 89 COPD (chronic obstructive pulmonary disease) Dementia Father , 89 Alzheimer disease Grandparent , 60 Paget's disease Grandparent , 67 Intestinal cancer Grandparent , 53 Pulmonary emboli Grandparent , 54 Alcoholism Cerebral hemorrhage Social History Social History Smoking status: Never smoker Second hand tobacco smoke exposure: No Alcohol intake: never Drinks per week: 1 Alcohol use details: one drink q2w Substance use: never Substance use type: does not use Has the Lack of Transportation Kept You From Medical Appointments or From Getting Medications?: No Within the Past 12 [place]
--- NOTE | 2022-03-14 22:00 | PM.IMHP ---
H&P: HPI History of Present Illness Date/Time: 03/14/22 22:00 Chief Complaint: Fever and difficulties urinating. Narrative: This is a pleasant 66-year-old male with history of nonobstructing coronary artery disease by CT coronary angiography, sleep apnea, hypertension, hyperlipidemia, renal cell carcinoma status post partial right nephrectomy, kidney stones, and bladder stones who presented to the emergency department for evaluation of fever and difficulties urinating. He has had several urologic procedures recently since this summer including partial nephrectomy for right renal cell carcinoma, ESWL, and cystoscopy with extraction of bladder calculus done last week at [facility]. He has been on Bactrim since that procedure and has been doing well although yesterday he once again developed difficulties voiding and last evening he noticed swelling of the left testicle. On arrival to the emergency department his temperature was nearly 102? and CT showed mild left hydronephrosis with ureteral wall thickening consistent with upper UTI as well as findings consistent with left epididymitis for which he has been started on levofloxacin. He was also found to be in presumed new onset atrial fibrillation with rapid ventricular response of which he was not necessarily very symptomatic. He does remark however that over the last couple of weeks he has had intermittent palpitations and shortness of breath with activities that he would not normally get short of breath doing. He has been started on metoprolol 50 milligrams q.12 hours and Eliquis is being considered given a CHADS2 Vasc score of at least 3 however that is being held at this time pending urology input. At the time my evaluation he is feeling better and he has no other complaints. Review of Systems Review of Systems: Twelve systems were reviewed. He had a head cold 3 weeks ago but that has since improved. He has a history of PVCs but not AFib to his knowledge. No syncope or presyncope. No nausea or vomiting. No diarrhea. No hematuria. Except as documented, all other systems were reviewed and are negative. [facility] Past Medical History Medical History BPH (benign prostatic hyperplasia) Cardiac arrhythmia Chronic depression Colon cancer screening HTN (hypertension) Hyperlipidemia Hypogonadism Hypogonadism in male Hypogonadism in male Morbid obesity with BMI of 45.0-49.9, adult DALTON on CPAP Osteoarthritis, multiple sites Primary hypertension Prostate cancer screening Seasonal allergies Surgical History Surgical History H/O total knee replacement (~2007) left knee H/O total knee replacement (~2015) right knee History of bilateral carpal tunnel release History of lumbar fusion History of lumbar surgery (~2013) lumbar disc fusion L3-L5 History of partial nephrectomy History of total bilateral knee replacement Family History Family History Mother , 89 COPD (chronic obstructive pulmonary disease) Dementia Father , 89 Alzheimer disease Grandparent , 60 Paget's disease Grandparent , 67 Intestinal cancer Grandparent , 53 Pulmonary emboli Grandparent , 54 Alcoholism Cerebral hemorrhage Social History Social History (Updated 03/14/22 @ 23:49 by Ondina Clements PA-C) Social History: Surrogate medical decision maker: Corry Kearns, spouse. Code status: Full code. Smoking status: Never smoker Second hand tobacco smoke exposure: No Alcohol intake: never Drinks per week: 1 Alcohol use details: one drink q2w Substance use: never Substance use type: does not use Lack of Transportation: No Lack of Food: Never True Current Housing: I Have Housing Concerned About Future Housing: No Difficulty Paying Gas/Electric Bills:
[2022-03-15] VITALS (15 sets, daily range): BP systolic 99–122; BP diastolic 60–84; PULSE 71–132; RESP 14–20; TEMP 35.9–37.2; O2SAT 97–100
--- NOTE | 2022-03-15 01:03 | PC.NURSE ---
Daylight Savings Time For Daylight Savings Time Ending in the Fall - Clocks are moved back. For Daylight Savings Time Beginning in the Spring - Clocks are moved ahead. For [facility], the time of change occurs at 0200 hrs. Time is taken from the chief service observer. This entry on the patient's chart recognizes the change in time reflected during documentation. Example: 2 entries for vital signs may be charted for 0200 hrs.
[2022-03-15 05:38] LABS: Hematocrit 37.5 % (42.0-52.0); Mean Corpuscular Hemoglobin 30.6 pg (26-34); Mean Corpuscular Volume 95.7 fl (80-100); Platelet Count Result 260 k/mm3 (150-375); Red Blood Count 3.92 M/mm3 (4.6-6.20); Red Cell Distribution Width 13.4 % (11.5-14.5); White Blood Count 11.2 K/mm3 (4.5-10.0)
[2022-03-15 05:47] LABS: Anion Gap 11 mmol/L (8-16); Blood Urea Nitrogen 16 mg/dL (9-20); Calcium 8.7 mg/dL (8.4-10.2); Carbon Dioxide 26 mmol/L (22-30); Chloride 100 mmol/L (98-107); Estimated CRCL calculation 58 ml/min; Estimated Glomerular Filt Rate 55; Glucose 119 mg/dL (65-110); Magnesium 2.1 mg/dL (1.6-2.3); Potassium 4.1 mmol/L (3.4-5.0); Sodium 137 mmol/L (137-145)
[2022-03-15] MEDS: CYANOCOBALAMIN 1,000 MCG TABLET 1000 MCG PO (09:11)
[2022-03-15] MEDS: MULTIVITAMINS THERAPEUTIC TAB (*BKC) 1 TABLET PO (09:11)
[2022-03-15] MEDS: buPROPion HCL SR (12 HR) 150 MG TAB PO ×2 (09:11→21:30)
[2022-03-15] MEDS: OMEGA 3 POLYUNSAT FATTY ACIDS 1 GM CAP PO (09:11)
[2022-03-15] MEDS: CHOLECALCIFEROL 1,000 UNITS TABLET 1000 UNITS PO (09:11)
[2022-03-15] MEDS: ASCORBIC ACID 500 MG TABLET PO (09:12)
[2022-03-15] MEDS: METOPROLOL TARTRATE 50 MG TAB 100 MG PO ×2 (11:12→21:30)
--- NOTE | 2022-03-15 11:55 | PM.IMPN ---
Progress Note: A&P Assessment and Plan (1) Acute pyelonephritis: Code(s): N10 - Acute pyelonephritis Status: Acute Assessment and Plan: Continue IV antibiotics. Urology consult (2) Orchitis and epididymitis, unspecified: Code(s): N45.3 - Epididymo-orchitis Status: Acute Assessment and Plan: IV antibiotics. Improving. (3) Atrial fibrillation with RVR: Code(s): I48.91 - Unspecified atrial fibrillation Status: Acute Assessment and Plan: Cardiology consult (4) Renal insufficiency: Code(s): N28.9 - Disorder of kidney and ureter, unspecified Status: Acute Subjective Date/time seen: 03/15/22 11:55 Patient denies any new complaints. Still in AFib. Exam Const: Other: Well-developed, nontoxic-appearing male sitting on the couch in his room in no distress. Weight: 113 kilograms. BMI: 41.5. HENMT: Other: Normocephalic, atraumatic. Moist mucous membranes. Oropharynx crowded. Eyes: Other: Pupils reactive, extraocular motions intact. Neck: Other: Supple. Somewhat limited due to neck circumference. No obvious JVD or carotid bruits. Resp: Other: Respirations are nonlabored and lungs are clear to auscultation. Cardio: Other: Irregularly irregular rate and rhythm. GI: Other: Abdomen is protuberant and nontender with positive bowel sounds. : Other: Exam deferred, see urology exam. Skin: Other: Warm and dry. Normal capillary refill. Neuro: Other: Alert and oriented. Cranial nerves 2-12 grossly intact. No focal deficits to casual conversation. Extrem: Other: No cyanosis, clubbing, or edema. Radial and pedal pulses intact. Psych: Other: Pleasant and cooperative with appropriate mood and affect. Objective Data Vital Signs Vital Signs: Vital Signs - 24 hr 03/14/22 14:00 03/14/22 16:00 03/14/22 16:00 Temperature 98.7 F Pulse Rate 86 91 90 Respiratory Rate 18 Blood Pressure 125/80 Pulse Oximetry 98 Oxygen Delivery 03/14/22 18:00 03/14/22 20:00 03/14/22 20:51 Temperature 99 F Pulse Rate 101 H 105 H 113 H Respiratory Rate 20 Blood Pressure 124/74 Pulse Oximetry 97 Oxygen Delivery 03/14/22 20:00 03/14/22 20:00 03/14/22 22:00 Temperature Pulse Rate 99 93 Respiratory Rate Blood Pressure Pulse Oximetry 97 Oxygen Delivery Room Air 03/15/22 00:00 03/15/22 00:00 03/15/22 00:00 Temperature 97.7 F Pulse Rate 85 89 Respiratory Rate 16 Blood Pressure 118/60 Pulse Oximetry 98 98 Oxygen Delivery Room Air 03/15/22 02:00 03/15/22 04:00 03/15/22 04:00 Temperature 97.4 F L Pulse Rate 89 98 Respiratory Rate 18 Blood Pressure 120/81 Pulse Oximetry 98 98 Oxygen Delivery CPAP 03/15/22 04:00 03/14/22 22:52 03/15/22 03:49 Temperature Pulse Rate 95 74 Respiratory Rate Blood Pressure Pulse Oximetry 96 Oxygen Delivery Autopap Autopap 03/15/22 06:00 03/15/22 08:00 03/15/22 11:12 Temperature 96.7 F L Pulse Rate 97 83 90 Respiratory Rate 16 Blood Pressure 122/84 Pulse Oximetry 98 Oxygen Delivery 03/15/22 08:00 Temperature Pulse Rate Respiratory Rate Blood Pressure Pulse Oximetry Oxygen Delivery Room Air Intake/Output Intake/Output: Intake & Output 03/12/22 03/13/22 03/14/22 03/15/22 23:59 23:59 23:59 22:59 Intake Total 2965 470 Output Total 0 1150 Balance 2965 -680 Meds/Results Medications: Active Medications Generic Name Dose Route Start Last Admin Trade Name Freq PRN Reason Stop Dose Admin Apixaban 5 mg 03/15/22 10:00 03/15/22 11:15 Apixaban 5 Mg Tablet PO Not Given Q12HR [facility] Ascorbic Acid 500 mg 03/15/22 09:00 03/15/22 09:12 Ascorbic Acid 500 Mg Tablet PO 500 mg DAILY [facility] Administration Aspirin 81 mg 03/15/22 17:00 Aspirin 81 Mg Enteric Tablet PO DAILY@1700 [facility] Atorvastatin Calcium 20 mg 03/15/22 18:00 Atorvastatin 20 M
--- NOTE | 2022-03-15 12:30 | PM.PNCARD ---
Progress Note: A&P Assessment and Plan (1) Atrial fibrillation with RVR: Code(s): I48.91 - Unspecified atrial fibrillation Status: Acute Assessment and Plan: Duration unknown suspect recent onset AFib with RVR relatively asymptomatic hemodynamically stable. Multifactorial etiology including recent illness/infection, risk factors including age, hypertension, CAD with CHADS2 Vasc score at least 3. Systemic anticoagulation advised. no surgical intervention planned with urology. Will initiate systemic anticoagulation. Eliquis not covered by insurance. Discussed alternatives including warfarin and or Xarelto. Will initiate Xarelto 20 mg at bedtime. Patient in agreement. Will give 1 month free upon discharge. Patient will follow up with his training systems officer for further management recommendations in this regard. Discussed considerations for cardioversion as an outpatient with his training systems officer as appropriate. Patient very comfortable with heart rate control strategy with medical management at this time and is asymptomatic. Increase metoprolol tartrate to 100 mg twice daily. Observe heart rate response prior to discharge with further adjustments as appropriate. Patient is comfortable with plan of care. all questions answered to his satisfaction. (2) Acute pyelonephritis: Code(s): N10 - Acute pyelonephritis Status: Acute Assessment and Plan: Management per primary service and Urology. (3) CAD (coronary artery disease): Code(s): I25.10 - Atherosclerotic heart disease of [place] coronary artery without angina pectoris Status: Acute Assessment and Plan: History of nonobstructive CAD by CT coronary angiography. No anginal symptoms. Aspirin 81 mg daily, continuation of statin, beta-moris therapy. (4) MALDONADO (acute kidney injury): Code(s): N17.9 - Acute kidney failure, unspecified Status: Acute Assessment and Plan: Monitor renal function closely. History of chronic CKD with acute injury baseline stage III. Management per primary service and meds nephrotoxic agents. (5) Sepsis: Code(s): A41.9 - Sepsis, unspecified organism Status: Acute Assessment and Plan: Stabilizing with supportive care and antibiotics. Management per primary service and Urology. (6) Essential hypertension: Code(s): I10 - Essential (primary) hypertension Status: Acute Assessment and Plan: Stable. No acute issues at this time. (7) DALTON on CPAP: Code(s): G47.33 - Obstructive sleep apnea (adult) (pediatric); Z99.89 - Dependence on other enabling machines and devices Status: Acute Assessment and Plan: Tolerating resumption of CPAP for DALTON. Untreated DALTON may certainly increase risk for arrhythmia development including atrial fibrillation. Patient verbalized understanding (8) Hyperlipidemia: Qualifiers: Hyperlipidemia type: unspecified Qualified Code(s): E78.5 - Hyperlipidemia, unspecified Code(s): E78.5 - Hyperlipidemia, unspecified Status: Acute Assessment and Plan: continue atorvastatin 40 mg at bedtime. Subjective Date/time seen: Date of service:03/15/22 12:30 Follow-up for atrial fibrillation with rapid ventricular response patient feels much better today. Denies palpitations, shortness of breath. Heart rate was rather elevated up to the 150s yesterday with ambulation in which patient was asymptomatic. He is tolerating medical management today. Heart rate better controlled overall. Urinating better, tolerated CPAP last night. No chest pain or dizziness. Review of Systems Review of Systems: All systems reviewed & are unremarkable except as noted in HPI and below Constitutional: Constitutional: Reports as per HPI and Reports no additional constitutional complaints Eyes: Eyes: Reports as per HPI and Reports no additional eye complaints ENT: Reports system reviewed and no jordan
--- NOTE | 2022-03-15 12:54 | WPDUROPN2 ---
Progress Note: A&P Assessment and Plan (1) Orchitis and epididymitis, unspecified: Code(s): N45.3 - Epididymo-orchitis Status: Acute Assessment and Plan: Clinically improving on Levaquin. Will increase frequency to @24-hours. Appreciate Dr. Soto's input. Subjective Subjective Date/Time Seen: 03/15/22 12:54 Feeling much better and scrotal induration notably improved Review of Systems Cardiovascular: Cardiovascular: Denies chest pain, Denies lightheadedness, Denies palpitations and Denies dyspnea Respiratory: Respiratory: Denies dyspnea Gastrointestinal: Gastrointestinal: Denies diarrhea, Denies nausea and Denies vomiting Genitourinary: Genitourinary: Denies hematuria and Denies dysuria Endocrine: Endocrine: Denies palpitations Objective Data Vital Signs Vital Signs: Vital Signs - 24 hr 03/14/22 14:00 03/14/22 16:00 03/14/22 16:00 Temperature 98.7 F Pulse Rate 86 91 90 Respiratory Rate 18 Blood Pressure 125/80 Pulse Oximetry 98 Oxygen Delivery 03/14/22 18:00 03/14/22 20:00 03/14/22 20:51 Temperature 99 F Pulse Rate 101 H 105 H 113 H Respiratory Rate 20 Blood Pressure 124/74 Pulse Oximetry 97 Oxygen Delivery 03/14/22 20:00 03/14/22 20:00 03/14/22 22:00 Temperature Pulse Rate 99 93 Respiratory Rate Blood Pressure Pulse Oximetry 97 Oxygen Delivery Room Air 03/15/22 00:00 03/15/22 00:00 03/15/22 00:00 Temperature 97.7 F Pulse Rate 85 89 Respiratory Rate 16 Blood Pressure 118/60 Pulse Oximetry 98 98 Oxygen Delivery Room Air 03/15/22 02:00 03/15/22 04:00 03/15/22 04:00 Temperature 97.4 F L Pulse Rate 89 98 Respiratory Rate 18 Blood Pressure 120/81 Pulse Oximetry 98 98 Oxygen Delivery CPAP 03/15/22 04:00 03/14/22 22:52 03/15/22 03:49 Temperature Pulse Rate 95 74 Respiratory Rate Blood Pressure Pulse Oximetry 96 Oxygen Delivery Autopap Autopap 03/15/22 06:00 03/15/22 08:00 03/15/22 11:12 Temperature 96.7 F L Pulse Rate 97 83 90 Respiratory Rate 16 Blood Pressure 122/84 Pulse Oximetry 98 Oxygen Delivery 03/15/22 08:00 03/15/22 12:00 Temperature 96.8 F L Pulse Rate 82 Respiratory Rate 14 Blood Pressure 108/68 Pulse Oximetry 98 Oxygen Delivery Room Air Intake/Output Intake/Output: Intake & Output 03/12/22 03/13/22 03/14/22 03/15/22 23:59 23:59 23:59 22:59 Intake Total 2965 990 Output Total 0 1500 Balance 2965 -510 Meds/Results Medications: Active Medications Generic Name Dose Route Start Last Admin Trade Name Jose PRN Reason Stop Dose Admin Apixaban 5 mg 03/15/22 10:00 03/15/22 11:15 Apixaban 5 Mg Tablet PO Not Given Q12HR [facility] Ascorbic Acid 500 mg 03/15/22 09:00 03/15/22 09:12 Ascorbic Acid 500 Mg Tablet PO 500 mg DAILY [facility] Administration Aspirin 81 mg 03/15/22 17:00 Aspirin 81 Mg Enteric Tablet PO DAILY@1700 [facility] Atorvastatin Calcium 20 mg 03/15/22 18:00 Atorvastatin 20 Mg Tablet PO QPM [facility] Bupropion HCl 150 mg 03/15/22 09:00 03/15/22 09:11 Bupropion Hcl Sr (12 Hr) 150 Mg Tab PO 150 mg Q12HR [facility] Administration Calcium Carbonate 500 mg 03/15/22 09:00 03/15/22 09:11 Calcium/Vitamin D 500 Mg Tablet PO 500 mg QAM [facility] Administration Cyanocobalamin 1,000 mcg 03/15/22 09:00 03/15/22 09:11 Cyanocobalamin 1,000 Mcg Tablet PO 1,000 mcg DAILY [facility]NA Administration Escitalopram Oxalate 10 mg 03/15/22 18:00 Escitalopram Oxalate 10 Mg Tablet PO QPM [facility] Famotidine 20 mg 03/15/22 18:00 Famotidine 20 Mg Tablet PO QPM [facility] Finasteride 5 mg 03/15/22 18:00 Finasteride 5 Mg Tablet PO QPM [facility] Fish Oil 1 gm 03/15/22 09:00 03/15/22 09:11 [place] 3 Polyunsat Fatty Acids 1 Gm Cap PO 1 gm DAILY ANA Administration Magnesium Chloride 192 mg 03/15/22 09:00 03/15/22 11:14 Magnesium Chloride 64 Mg Tablet PO Not
[2022-03-15] MEDS: FAMOTIDINE 20 MG TABLET PO (17:19)
[2022-03-15] MEDS: FINASTERIDE 5 MG TABLET PO (17:20)
[2022-03-15] MEDS: ATORVASTATIN 20 MG TABLET PO (17:20)
[2022-03-15] MEDS: ASPIRIN 81 MG ENTERIC TABLET PO (17:20)
[2022-03-15] MEDS: ESCITALOPRAM OXALATE 10 MG TABLET PO (17:20)
--- NOTE | 2022-03-15 18:53 | PC.NURSE ---
On 03/15/22, the student, Amanda Perez, provided care and completed [employer] documentation on this patient. I have reviewed the student's documentation and agree with the findings.
--- NOTE | 2022-03-15 19:36 | PC.NURSE ---
[facility] place on hold b/c patient insurance will not cover and Dr Busch verbally ordered to not give and he will change it to sanya.
[2022-03-16] VITALS (11 sets, daily range): BP systolic 104–117; BP diastolic 67–80; PULSE 76–88; RESP 20; TEMP 36.4–36.9; O2SAT 98–99
--- NOTE | 2022-03-16 07:08 | WPDUROPN2 ---
Progress Note: A&P Assessment and Plan (1) Orchitis and epididymitis, unspecified: Code(s): N45.3 - Epididymo-orchitis Status: Acute Assessment and Plan: Notable improvement with left epididymitis - quicker than usual. Blood cx: neg / urine cx: e. coli. I'm comfortable with discharge on po Levaquin 750mg daily x10 days. F/U with us in 2-3 weeks. Subjective Subjective Date/Time Seen: 03/16/22 07:08 No complaints / less testicle pain Review of Systems Cardiovascular: Cardiovascular: Denies chest pain, Denies lightheadedness, Denies palpitations and Denies dyspnea Respiratory: Respiratory: Denies dyspnea Gastrointestinal: Gastrointestinal: Denies diarrhea, Denies nausea and Denies vomiting Genitourinary: Genitourinary: Denies hematuria and Denies dysuria Endocrine: Endocrine: Denies palpitations Exam Const: General: no acute distress Resp: Effort & Inspection: normal respiratory effort GI: Inspection: non-distended GI Palp: No abdominal tenderness and No Guarding due to palpation present (GI) Auscultation: normal bowel sounds : Scrotum: other (moderate left epididymal induration) Objective Data Vital Signs Vital Signs: Vital Signs - 24 hr 03/15/22 08:00 03/15/22 11:12 03/15/22 08:00 Temperature 96.7 F L Pulse Rate 83 90 Respiratory Rate 16 Blood Pressure 122/84 Pulse Oximetry 98 Oxygen Delivery Room Air 03/15/22 12:00 03/15/22 12:00 03/15/22 08:00 Temperature 96.8 F L Pulse Rate 82 132 H Respiratory Rate 14 Blood Pressure 108/68 Pulse Oximetry 98 Oxygen Delivery Room Air 03/15/22 10:00 03/15/22 12:00 03/15/22 14:00 Temperature Pulse Rate 88 101 H 74 Respiratory Rate Blood Pressure Pulse Oximetry Oxygen Delivery 03/15/22 16:00 03/15/22 16:00 03/15/22 16:00 Temperature 97.4 F L Pulse Rate 71 78 Respiratory Rate 20 Blood Pressure 99/71 L Pulse Oximetry 97 Oxygen Delivery Room Air 03/15/22 18:00 03/15/22 20:35 03/15/22 21:30 Temperature 98.9 F Pulse Rate 97 91 86 Respiratory Rate 20 Blood Pressure 107/70 Pulse Oximetry 100 Oxygen Delivery 03/15/22 20:00 03/15/22 20:00 03/15/22 22:00 Temperature Pulse Rate 94 95 Respiratory Rate Blood Pressure Pulse Oximetry Oxygen Delivery Room Air 03/16/22 00:13 03/16/22 00:00 03/16/22 00:00 Temperature 98.5 F Pulse Rate 82 88 Respiratory Rate 20 Blood Pressure 109/67 Pulse Oximetry 99 Oxygen Delivery Room Air 03/16/22 02:00 03/16/22 02:56 03/15/22 22:34 Temperature Pulse Rate 81 Respiratory Rate Blood Pressure Pulse Oximetry Oxygen Delivery Autopap Autopap 03/16/22 04:00 03/16/22 04:00 03/16/22 05:30 Temperature 98.5 F Pulse Rate 77 81 Respiratory Rate 20 Blood Pressure 117/80 Pulse Oximetry 98 Oxygen Delivery Room Air 03/16/22 05:43 03/16/22 06:00 Temperature Pulse Rate 81 76 Respiratory Rate Blood Pressure Pulse Oximetry 98 Oxygen Delivery Room Air Intake/Output Intake/Output: Intake & Output 03/14/22 03/15/22 03/15/22 03/16/22 00:59 00:59 23:59 23:59 Intake Total 1700 Output Total 1450 Balance 250 Meds/Results Medications: Active Medications Generic Name Dose Route Start Last Admin Trade Name Jose PRN Reason Stop Dose Admin Apixaban 5 mg 03/15/22 10:00 03/15/22 11:15 Apixaban 5 Mg Tablet PO Not Given Q12HR [facility] Ascorbic Acid 500 mg 03/15/22 09:00 03/15/22 09:12 Ascorbic Acid 500 Mg Tablet PO 500 mg DAILY ANA Administration Aspirin 81 mg 03/15/22 17:00 03/15/22 17:20 Aspirin 81 Mg Enteric Tablet PO 81 mg DAILY@1700 ANA Administration Atorvastatin Calcium 20 mg 03/15/22 18:00 03/15/22 17:20 Atorvastatin 20 Mg Tablet PO 20 mg QPM ANA Administration Bupropion HCl 150 mg 03/15/22 09:00 03/15/22 21:30 Bupropion Hcl Sr (12 Hr) 150 Mg Tab PO 150 mg Q12HR [facility]
--- NOTE | 2022-03-16 10:36 | PM.PNCARD ---
Progress Note: A&P Assessment and Plan (1) Atrial fibrillation with RVR: Code(s): I48.91 - Unspecified atrial fibrillation Status: Acute Assessment and Plan: Duration unknown suspect recent onset AFib with RVR relatively asymptomatic hemodynamically stable. Multifactorial etiology including recent illness/infection, risk factors including age, hypertension, CAD with CHADS2 Vasc score at least 3. Systemic anticoagulation advised. no surgical intervention planned with urology. Will initiate systemic anticoagulation. Discontinue Eliquis. Will Start Xarelto 20 mg daily. This was not started yesterday Patient in agreement. Will give 1 month free upon discharge. 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 Patient very comfortable with heart rate control strategy with medical management at this time and is asymptomatic. Observe heart rate response prior to discharge with further adjustments as appropriate. (2) Acute pyelonephritis: Code(s): N10 - Acute pyelonephritis Status: Acute Assessment and Plan: Management per primary service and Urology. (3) CAD (coronary artery disease): Code(s): I25.10 - Atherosclerotic heart disease of [place] coronary artery without angina pectoris Status: Acute Assessment and Plan: History of nonobstructive CAD by CT coronary angiography. No anginal symptoms. Aspirin 81 mg daily, continuation of statin, beta-moris therapy. (4) MALDONADO (acute kidney injury): Code(s): N17.9 - Acute kidney failure, unspecified Status: Acute Assessment and Plan: Monitor renal function closely. History of chronic CKD with acute injury baseline stage III. Management per primary service and meds nephrotoxic agents. (5) Sepsis: Code(s): A41.9 - Sepsis, unspecified organism Status: Acute Assessment and Plan: Stabilizing with supportive care and antibiotics. Management per primary service and Urology. (6) Essential hypertension: Code(s): I10 - Essential (primary) hypertension Status: Acute Assessment and Plan: Stable. No acute issues at this time. (7) DALTON on CPAP: Code(s): G47.33 - Obstructive sleep apnea (adult) (pediatric); Z99.89 - Dependence on other enabling machines and devices Status: Acute Assessment and Plan: Tolerating resumption of CPAP for DALTON. Untreated DALTON may certainly increase risk for arrhythmia development including atrial fibrillation. Patient verbalized understanding (8) Hyperlipidemia: Qualifiers: Hyperlipidemia type: unspecified Qualified Code(s): E78.5 - Hyperlipidemia, unspecified Code(s): E78.5 - Hyperlipidemia, unspecified Status: Acute Assessment and Plan: continue atorvastatin 40 mg at bedtime. Subjective Date/time seen: 03/16/22 10:36 66-year-old with a epidermidis was cardiology consultation for atrial fibrillation with rapid ventricular response Date of service 03/16/2022: He feels great. No chest pain, shortness breath, palpitations or bleeding problems. Review of Systems Review of Systems: All systems reviewed & are unremarkable except as noted in HPI and below Constitutional: Constitutional: Reports as per HPI and Reports no additional constitutional complaints Eyes: Eyes: Reports as per HPI and Reports no additional eye complaints ENT: Reports system reviewed and no additional complaints, except as documented and Reports as per HPI Cardiovascular: Cardiovascular: Reports as per HPI, Reports no additional cardiovascular complaints and Denies chest pain Respiratory: Respiratory: Reports as per HPI, Reports no additional respiratory complaints and Denies cough Gastrointestinal: Gastrointestinal: Reports as per HPI, Reports no additional gastrointestinal complaints and Denies abdominal pain Genitourinary: Genitourinary: Reports no
[2022-03-16] MEDS: MULTIVITAMINS THERAPEUTIC TAB (*BKC) 1 TABLET PO (10:55)
[2022-03-16] MEDS: buPROPion HCL SR (12 HR) 150 MG TAB PO (10:55)
[2022-03-16] MEDS: CHOLECALCIFEROL 1,000 UNITS TABLET 1000 UNITS PO (10:55)
[2022-03-16] MEDS: ASCORBIC ACID 500 MG TABLET PO (10:55)
[2022-03-16] MEDS: OMEGA 3 POLYUNSAT FATTY ACIDS 1 GM CAP PO (10:55)
[2022-03-16] MEDS: CYANOCOBALAMIN 1,000 MCG TABLET 1000 MCG PO (10:55)
[2022-03-16] MEDS: METOPROLOL TARTRATE 50 MG TAB 100 MG PO (10:56)
--- NOTE | 2022-03-16 11:59 | PM.DS ---
DS: Admitting Diagnosis Discharge Date 03/16/22 Admitting Diagnosis Admitted for epididymitis andorchitis and found to be in atrial fibrillation. continue oral Levaquin on discharge. Follow-up with Urology. His AFib fibrillation was managed with increasing his beta-moris and putting on Xarelto. He can follow Cardiology. DS: Summary Hospital Course Hospital Course: Admitted for epididymitis and orchitis. Started on Levaquin did well. Follow-up with Urology. Will receive antibiotics on discharge. Also found in atrial fibrillation we increased his beta-moris put him on Xarelto and he can follow up with Cardiology as well. No chest pain or any other cardiac symptoms Time Spent with Patient Time attestation: Total time spent providing and/or coordinating discharge services: DS: Data Data Completed and Pending Labs on day of discharge: Preliminary micro results at discharge 03/14/22 02:03 Blood Culture - Preliminary Blood 03/14/22 01:42 Blood Culture - Preliminary Blood Discharge Plan Discharge Attending physician on discharge: Mu Beck Consulting providers: Valeriy Soto ; Kvng Ward ; Keke Kingston Discharging Clinician: Mu Beck Patient Disposition: Home, Self-Care Activity: no preference Diet: as tolerated Stand Alone Forms: General Discharge Information Follow-up/Referrals: Phyllis Love MD [Primary Care Provider] - Valeriy Soto MD [Physician] - Kvng Ward MD [Physician] - Discharge Medications: New levofloxacin 750 mg tablet 750 mg PO DAILY Qty: 10 0RF metoprolol tartrate 50 mg Tablet 100 mg PO Q12HR 30 Days Qty: 120 0RF Xarelto 20 mg tablet 20 mg PO DAILY Qty: 30 0RF Rx Instructions: must administer with evening meal Continued ascorbate calcium (vitamin C) 500 mg tablet 500 mg PO DAILY Label Comments: [facility] cholecalciferol (vitamin D3) 25 mcg (1,000 unit) capsule 25 mcg PO DAILY Label Comments: QA famotidine [Pepcid AC] 20 mg tablet 20 mg PO QPM aspirin [Adult Low Dose Aspirin] 81 mg tablet,delayed release (DR/EC) 81 mg PO DAILY Hold Instructions: Resume on 02/15/22. Label Comments: QA omega 6-sgj-yve-fish oil [Fish Oil] 1,000 mg (120 mg-180 mg) capsule 1 cap PO DAILY Hold Instructions: Resume on 02/15/22. Label Comments: QAM multivitamin Capsule 1 cap PO DAILY Label Comments: QAM magnesium chloride 64 mg tablet extended release 192 mg PO BID bupropion HCl 150 mg tablet extended release 24 hr 150 mg PO BID finasteride 5 mg tablet 5 mg PO QPM cromolyn 4 % drops 1 drp EACH EYE PRN PRN (Reason: Dry Eye(S)) [id number]-[id number]-OH 3.5-10,000-1 mg/mL-unit/mL-% solution 1 drp EACH EAR PRN PRN (Reason: INFECTION) cyanocobalamin (vitamin B-12) 1,000 mcg Tablet 1,000 mcg PO DAILY Label Comments: QAM calcium carbonate-vitamin D3 [Calcium 600 + D(3)] 600 mg-10 mcg (400 unit) Tablet 1 tablet PO DAILY Label Comments: QAM triamcinolone acetonide [24 Hour Nasal Allergy] 55 mcg aerosol,spray 2 spray intranasal DAILY PRN (Reason: allergy) Rx Instructions: administer into each nostril spironolactone 25 mg tablet 12.5 mg PO DAILY Label Comments: QAM atorvastatin 20 mg tablet 20 mg PO QPM enalapril maleate 20 mg tablet 20 mg PO DAILY Qty: 90 3RF Hold Instructions: Resume on 11/03/21. Label Comments: QAM testosterone cypionate [Depo-Testosterone] 200 mg/mL oil 200 mg IM .Q2WK Qty: 6 3RF Rx Instructions: as a single dose escitalopram oxalate 10 mg tablet 10 mg PO QPM Qty: 30 4RF Discontinued metoprolol succinate 25 mg tablet extended release 24 hr 25 mg PO QPM Date of admission: 03/15/22 14:30 Primary Care Provider: Phyllis Love Admitting Provider: Linda Pulliam V. Attending
== END 2022-03-16 13:30 | disposition home or self-care (01) | DRG 728 ==
LOC: ANHED 03-14 07:28 → ANHIMU 03-14 08:34
PROVIDERS: Physician Assistant; Admitting Provider Internal Medicine; Emergency Provider General Practice; PCP Family Medicine; Visit Provider Chiropractor
DX: N45.3 Epididymo-orchitis (principal); N10 Acute pyelonephritis; Z68.41 Body mass index [BMI] 40.0-44.9, adult; N17.9 Acute kidney failure, unspecified; I48.91 Unspecified atrial fibrillation; Z79.82 Long term (current) use of aspirin; Z79.899 Other long term (current) drug therapy; N40.0 Benign prostatic hyperplasia without lower urinary tract symptoms; F32.A Depression, unspecified; E78.5 Hyperlipidemia, unspecified; E66.01 Morbid (severe) obesity due to excess calories; G47.33 Obstructive sleep apnea (adult) (pediatric); I10 Essential (primary) hypertension; J30.2 Other seasonal allergic rhinitis; Z96.653 Presence of artificial knee joint, bilateral; Z83.6 Family history of other diseases of the respiratory system; I25.10 Atherosclerotic heart disease of native coronary artery without angina pectoris; Z20.822 Contact with and (suspected) exposure to COVID-19; Z85.528 Personal history of other malignant neoplasm of kidney
CPT/HCPCS: 36415; 74177; 76870; 80048; 80053; 81001; 83605; 83690; 83735; 85025; 85027; 87040; 87077; 87086; 87186; 93005; 93976; 94660; 96361; 96365; 96366; 96367; 96375; 99285; A9270; G0378; J0131; J0696; J1956; J7030; Q9967; U0003; U0005

== ENCOUNTER 2022-04-29 13:49 | Outpatient (CLI) | payer MEDICARE, SELFPAY ==
--- NOTE | ~2022-04-29 | XR_ITS ---
XR chest 2V DATE: 04/29/2022 14:12 INDICATION: Recurrent urinary tract infections. TECHNIQUE: PA and lateral views COMPARISON: 10/24/2021 PA and lateral chest FINDINGS: Normal heart size. No hilar or mediastinal enlargement. No pulmonary infiltrate or consolid ation, pleural effusion or pulmonary vascular congestion or pneumothorax. Diffuse idiopathic skeletal hyperostosis of the thoracic spine. IMPRESSION: No active cardiopulmonary disease DISH Reviewed, dictated and finalized at location [facility]
--- NOTE | ~2022-04-29 | CT_ITS ---
EXAMINATION: CT abdomen pelvis wo/w con DATE: 04/29/2022 14:40 INDICATION: Left kidney stone TECHNIQUE: Computed tomography (CT) of the abdomen and pelvis was performed without and subsequently with 130 CC Omnipaque 350 intravenous contrast. Automated exposure control and iterative reconstructi on technique were employed. Exam dose: 2759.94 mGy-cm total exam DLP. COMPARISON: 03/14/2022 CT abdomen pelvis 08/15/2021 CT abdomen pelvis with IV contrast material FINDINGS: The lung bases are clear. Normal heart size. No pericardial or pleural effusion. Very small sliding hiatal hernia. The liver, gallbladder, bile ducts, pancreas, pancreatic duct and spleen are unremarkable. Left adrenal myelolipoma skin noted. Normal right adrenal gland. Status post lower pole left partial nephrectomy. No urinary tract calculus or hydroureteronephrosis. There are 2 stable small right renal probable cysts. There is interval mild enlargement of 2 hypoenhancing lesions at the lateral mid left kidney since 08/15/2021, one measuring up to 11.8 mm versus 8.8 mm and the other measuring up to 17.5 mm versus approx imately 14 mm on 08/15/2021. Lesion without evidence of some postcontrast enhancement. Consider MR dejan proctor for further evaluation. There is prostate enlargement. There is prominent diffuse thickening of the urinary bladder wall, whi ch may be due to bladder outlet obstruction, less likely cystitis. There is no fat stranding around t he bladder. Normal appendix. No bowel obstruction, bowel wall thickening, pneumatosis or intraperitoneal free air . Small bilateral fat-containing inguinal hernias. Very small fat-containing umbilical hernia. Status post L2-L5 posterior surgical spinal fusion. Moderate degenerative disease at L5-S1. Severe de generative disease in the lower thoracic spine and L1-2. Diffuse idiopathic skeletal hyperostosis of the thoracic spine. No suspicious osteolytic or osteoblastic lesions are noted. IMPRESSION: Interval mildly enlarged indeterminate masses in the lateral mid left kidney since 022. Hypernephroma must be considered. Status post partial left nephrectomy 2. Probable right renal cyst Left adrenal myelolipoma Very small sliding hiatal hernia Prostate enlargement, bladder wall thickening Small bilateral fat-containing inguinal hernia since fall fat-containing umbilical hernia Postoperative change of the lumbar spine Reviewed, dictated and finalized at [facility]. Reviewed, dictated and finalized at [facility]. 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 Hypernephroma must be considered. Status post partial left nephrectomy 2. Probable right renal cyst Left adrenal myelolipoma Very small sliding hiatal hernia Prostate enlargement, bladder wall thickening Small bilateral fat-containing inguinal hernia since fall fat-containing umbili saeed hernia Postoperative change of the lumbar spine
[2022-04-29 14:23] LABS: Estimated Glomerular Filt Rate 47
== END 2022-04-29 13:50 | disposition home or self-care (01) ==
PROVIDERS: PCP Family Medicine; Visit Provider Urology
DX: N20.0 Calculus of kidney (principal); N28.1 Cyst of kidney, acquired; K44.9 Diaphragmatic hernia without obstruction or gangrene; D35.02 Benign neoplasm of left adrenal gland; K40.20 Bilateral inguinal hernia, without obstruction or gangrene, not specified as recurrent
CPT/HCPCS: 71046; 74178; Q9967

== ENCOUNTER 2022-08-21 12:26 | Outpatient (CLI) | payer MEDICARE, SELFPAY ==
--- NOTE | ~2022-08-21 | XR_ITS ---
Supine and upright views of the abdomen Clinical history: Left renal stone COMPARISON: 03/04/2022 Findings: Bowel gas pattern is nonspecific. No evidence for obstruction or free air. No abnormal mass lesion or calcification is seen. Lumbar spinal fixation hardware is unchanged. Impression: No definite renal stone identified. Reviewed, dictated and finalized at [facility]. Impression: No definite renal stone identified.
== END 2022-08-21 12:27 | disposition home or self-care (01) ==
PROVIDERS: PCP Family Medicine; Visit Provider Urology
DX: N20.0 Calculus of kidney (principal)
CPT/HCPCS: 74018

== ENCOUNTER 2023-02-09 11:25 | Outpatient (CLI) | payer MEDICARE, SELFPAY ==
--- NOTE | ~2023-02-09 | XR_ITS ---
EXAMINATION: XR chest 2V DATE: 02/09/2023 11:51 INDICATION: Left-sided renal cell carcinoma. TECHNIQUE: Frontal and lateral views of the chest were obtained. COMPARISON: Chest 2 views 04/29/2022 FINDINGS: There is no pneumonia, pleural effusion, or pneumothorax. The heart size is normal. IMPRESSION: 1. No acute cardiopulmonary disease. Reviewed, dictated and finalized at location [facility].
--- NOTE | ~2023-02-09 | XR_ITS ---
EXAMINATION: XR abdomen/kub 1V DATE: 02/09/2023 11:50 INDICATION: Kidney stones. TECHNIQUE: A supine view of the abdomen on 2 radiographs was obtained. COMPARISON: CT abdomen and pelvis 04/29/2022 FINDINGS: There are no dilated loops of bowel. There is no urolithiasis. There are changes of posteri or fusion procedure in lumbar spine. IMPRESSION: 1. No urolithiasis. Reviewed, dictated and finalized at location [facility]. IMPRESSION: 1. No urolithiasis.
== END 2023-02-09 11:26 | disposition home or self-care (01) ==
PROVIDERS: PCP Family Medicine; Visit Provider Urology
DX: C64.2 Malignant neoplasm of left kidney, except renal pelvis (principal); Z87.442 Personal history of urinary calculi
CPT/HCPCS: 71046; 74018

== ENCOUNTER 2023-07-20 09:53 | Outpatient (CLI) | payer MEDICARE, SELFPAY ==
--- NOTE | ~2023-07-20 | XR_ITS ---
Clinical Indication: Chronic cough PA and lateral views of the chest: Comparison: 02/09/2023 Findings: The lungs are clear, without evidence of focal consolidation or pleural effusion. Cardiome diastinal silhouette is within normal limits. Bones and soft tissues are unremarkable. Impression: Normal chest. Reviewed, dictated and finalized at location . Impression: Normal chest.
--- NOTE | 2023-07-21 23:41 | WPDPFTINT ---
PFT Procedure Performed PFT Procedure Performed Spirometry with Pre/Post Bronchodilator Plethysmography (Lung Vol) Diffusing Cap (DLCO) Flow Vol Loop PFT Interpretation DOS: 07/20/2023 REQUESTING: Dr. Phlylis Love REASON FOR TESTING: Dyspnea PULMONARY FUNCTION TESTS Results are reliable and reproducible. Spirometry: Pre bronchodilator FEV1 is 1.91 L, 69%, mildly decreased. Pre bronchodilator FVC is 2.73 L, 76%, normal. FEV1/FVC ratio is 70%. After bronchodilator there is 18% increase in the FEV1, 2.27 L, 81% predicted. This is normal. After bronchodilator there was a 20% increase in the FVC, 3.28 L, 91%, normal. The FEV1/FVC ratio after bronchodilator is 69%, normal. This is a statistically significant response. Lung volumes: Total lung capacity is 7.39 L, 123% predicted, normal. The residual volume is 4.21 L, 197%, elevated, consistent with air trapping. RV/TLC is 57%, elevated consistent with air trapping. Airway resistance is 2.43, 104% predicted, normal. Diffusion: DLCO is 19.6, 80%, normal. DLCO/VA is 3.65, 85%, normal. Flow volume loop: Normal. IMPRESSION: This study shows a mild obstructive ventilatory impairment with robust response to bronchodilator, moderate air trapping and normal diffusion. There are no prior studies for comparison. An obstructive process is inferred from the significant air trapping. Luli Gao MD
== END 2023-07-20 09:54 | disposition home or self-care (01) ==
LOC: ANHPFT 09:56
PROVIDERS: PCP Family Medicine; Visit Provider Physician Assistant Medical
DX: R05.3 Chronic cough (principal); R06.00 Dyspnea, unspecified; R94.2 Abnormal results of pulmonary function studies
CPT/HCPCS: 71046; 94060; 94726; 94729

== ENCOUNTER 2023-09-03 10:02 | Outpatient (CLI) | payer MEDICARE, SELFPAY ==
--- NOTE | ~2023-09-03 | CT_ITS ---
CT Scan of the Chest without Contrast: Clinical Indication: COPD Technique: Contiguous sections were acquired throughout the chest without intravenous contrast. Dose reduction technique was used on this scan by utilizing automated exposure control and iterative recon struction technique. The dose-length product (DLP) was 922.44 mGy-cm. Findings: There is no evidence of any significant mediastinal, hilar or axillary lymphadenopathy. Coronary kun ry calcifications are present. There is no evidence of pleural or pericardial effusion. The lungs are clear. No pulmonary nodules or infiltrates are noted. Images through the upper abdomen reveal left adrenal myelolipoma. There is DISH of the thoracic spine . Impression: No significant abnormalities seen. Reviewed, dictated and finalized at location . Impression: No significant abnormalities seen.
--- NOTE | ~2023-09-03 | MR_ITS ---
EXAMINATION: MR abdomen wo/w con DATE: 09/03/2023 11:32 INDICATION: Left-sided renal cell carcinoma. TECHNIQUE: Magnetic resonance imaging (MRI) of the abdomen was performed without and with 20 mL Multi [facility] intravenous contrast. COMPARISON: None. FINDINGS: There is diffuse hepatic steatosis. The gallbladder, spleen, pancreas, and adrenal glands are normal. There are cysts in right kidney measuring up to 12 mm. There are changes of partial left nephrectomy . There are no dilated loops of bowel. There are no pathologically enlarged lymph nodes. There is no free intraperitoneal fluid. There are changes of posterior fusion procedure in lumbar spine. IMPRESSION: 1. Partial left nephrectomy. No evidence of recurrent malignancy. Reviewed, dictated and finalized at location [facility].
== END 2023-09-03 10:03 | disposition home or self-care (01) ==
LOC: ANHIMG 10:06
PROVIDERS: PCP Family Medicine; Referring Provider Urology; Visit Provider Physician Assistant
DX: J44.9 Chronic obstructive pulmonary disease, unspecified (principal); Z57.2 Occupational exposure to dust
CPT/HCPCS: 71250; 74183; A9577

== ENCOUNTER 2023-12-27 10:00 | Emergency (ER) | payer MEDICARE, SELFPAY ==
[2023-12-27] VITALS (14 sets, daily range): BP systolic 105–127; BP diastolic 53–102; PULSE 60–79; RESP 14–20; TEMP 36.6; O2SAT 95–100
--- NOTE | ~2023-12-27 | CT_ITS ---
CT abdomen pelvis w con Ordering provider: Rosi Acevedo MD History: 68 years Male with . abd discomfort/epigastric; increased eructation . Comparison: April 29, 2022 Technique: CT abdomen and pelvis with IV and without oral contrast. Automated exposure control and it erative reconstruction technique were employed. The dose-length product was 1350.59 mGy-cm. 100 mL Om nipaque 350 was given IV. Findings: VISUALIZED LOWER CHEST: Normal. UPPER ABDOMINAL ORGANS: Liver: Fat infiltration. Gallbladder: Normal. Spleen: Normal. Stomach/duodenum: Multiple densities seen in the stomach most likely medication tablets. Pancreas: Normal. Adrenals: The lesion seen in the left adrenal gland most likely tiny cyst in the right kidney upper p ole. Myelolipoma. Measuring 2.5 x 2.5 cm. Kidneys: Tiny cyst in the right kidney upper and lower pole. PELVIC ORGANS: The bladder shows thickened wall. Evaluation for cystitis advised. Enlarged prostate. BOWEL AND MESENTERY: Colon: No evidence of diverticulitis. Focal area of dilatation the transverse colon is seen which may be due to proximal and distal spasm. Follow-up advised. Normal appendix. Small Bowel: Normal. No obstruction. Peritoneum/mesentery: No free air or free fluid. No mesenteric lymphadenopathy. RETROPERITONEUM: Mild atheromatous disease of the abdominal aorta. No retroperitoneal lymphadenopat hy. MUSCULOSKELETAL: Superficial soft tissues: The superficial soft tissues are normal. Bones: Age appropriate degenerative changes of the spine. Postoperative changes in the lumbar spine. Dextroscoliosis. IMPRESSION: 1. No acute abdominal process with no evidence of appendicitis, diverticulitis or intestinal obstruc tion. 2. Mild fat infiltration of the liver. 3. Left adrenal myelolipoma. Reviewed, dictated and finalized at location [facility]. IMPRESSION: 1. No acute abdominal process with no evidence of appendicitis, diverticulitis or intestinal obstruction. 2. Mild fat infiltration of the liver. 3. Left adrenal myelolipoma.
--- NOTE | ~2023-12-27 | XR_ITS ---
EXAMINATION: XR chest 1V DATE: 12/27/2023 13:18 INDICATION: Epigastric abdominal pain. TECHNIQUE: A single frontal view of the chest was obtained. COMPARISON: Chest 2 views 07/20/2023, CT abdomen and pelvis 12/27/2023 FINDINGS: There is no pneumonia, pleural effusion, or pneumothorax. The heart size is normal. IMPRESSION: 1. No acute cardiopulmonary disease. Reviewed, dictated and finalized at location [facility].
--- NOTE | 2023-12-27 10:06 | PC.NURSE ---
Pt using aggressive speech with staff, demanding to know pt vital signs, demanding to see pt EKG & insisting staff interpret EKG for him. states Well, my mom is on her way up here and she's a doctor and she knows all of this! RN attempted to deescalate explaining the triage process, due to pt altered status she can not agree to allow us to give out information, when pt gets placed to exam room she will be on a monitor and he will be able to see all vitals. He became angry states I have a right, the pt is right here! Security ask to allow staff to do their job, not to get loud. 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
--- NOTE | 2023-12-27 11:58 | ED.ABDPAIN ---
HPI - Abdominal Pain General Chief Complaint: Abdominal Pain Stated Complaint: abdominal pain Time Seen by Provider: 12/27/23 11:47 Source: patient Mode of arrival: ambulatory Limitations: no limitations History of Present Illness HPI narrative: Patient presents with complaint of abdominal discomfort the middle of his abdomen was worse Wednesday morning. He also had diarrhea starting on Wednesday that has persisted intermittently. He notes that his stool has been light brown to [place] but denies any merlyn bleeding. Denies any nausea or vomiting. No fevers. He has increased frequency of belching and what he states feels like heartburn. No prior diagnosis of reflux/heartburn to patient's knowledge although he states that his college of education dean does prescribed him Pepcid which he takes daily and took this this morning. He was supposed to have a PCP appointment with Phyllis Love. No history of diabetes. No prior EGD but he has gotten routine screening colonoscopies. His last bowel movement was today 12/27/2023. If he finds that his symptoms are improved the limits his p.o. intake info has been taking less fluids and food. He states that his abdomen feels distended. Denies any chest pain or shortness of breath. Per triage note, drinks alcohol on occasion but denies tobacco. He sees a college of education dean Teddy Soliman through [facility], initially for PVCs. Dr Soliman also prescribes him Pepcid and Compazine manage his atrial fibrillation which he diagnosed after he had a history of kidney stones of 3 urinary tract infections, one complicated with left testicular swelling previously. He is on Xarelto for this. Related Data Home Medications Medication Instructions Recorded Confirmed spironolactone 25 mg tablet 12.5 mg PO DAILY 11/06/19 12/24/23 cholecalciferol (vitamin D3) 25 25 mcg PO DAILY 11/17/19 12/24/23 mcg (1,000 unit) capsule famotidine 20 mg tablet (Pepcid AC) 20 mg PO QPM 11/17/19 12/24/23 multivitamin 1 cap PO DAILY 11/17/19 12/24/23 calcium carbonate 600 mg-vitamin 1 tablet PO DAILY 09/01/21 12/24/23 D3 10 mcg (400 unit) tablet (Calcium 600 + D(3)) cromolyn 4 % eye drops 1 drp EACH EYE PRN PRN Dry Eye(S) 04/25/22 08/16/24 cyanocobalamin (vitamin B-12) 1,000 mcg PO DAILY 09/01/21 12/24/23 1,000 mcg tablet finasteride 5 mg tablet 5 mg PO QPM 09/01/21 12/24/23 [id number] 3.5 1 drp EACH EAR PRN PRN INFECTION 09/01/21 12/24/23 mg/mL-10,000 unit/mL-1 % ear solution triamcinolone acetonide 55 mcg 2 spray intranasal DAILY PRN 03/14/22 12/24/23 nasal spray aerosol (24 Hour Nasal allergy Allergy) tamsulosin 0.4 mg capsule 0.4 mg PO DAILY 03/27/22 12/24/23 atorvastatin 20 mg tablet 40 mg PO QPM 09/22/22 12/24/23 bupropion HCl 150 mg 24 hr tablet, 200 mg PO BID 09/22/22 12/24/23 extended release magnesium chloride 64 mg 64 mg PO DAILY 09/22/22 12/24/23 tablet,extended release metoprolol tartrate 50 mg tablet 100 mg PO Q12HR 07/14/23 12/24/23 Allergies Allergy/AdvReac Type Severity Reaction Status Date / Time No Known Allergies Allergy Mild Verified 12/24/23 14:42 [facility] Past Medical History Medical History Acute pyelonephritis BPH (benign prostatic hyperplasia) Chronic depression Fatigue HTN (hypertension) Hx of nephrolithotomy with removal of calculi Hyperlipidemia Hypogonadism in male Left renal mass Left renal stone Left ureteral stone Morbid obesity with BMI of 45.0-49.9, adult Orchitis and epididymitis, unspecified [place] on CPAP Osteoarthritis, multiple sites Paroxysmal atrial fibrillation PVC (premature ventricular contraction) Pyelonephritis of left kidney Seasonal allergies Sepsis Surgical History Surgical History H/O total knee replacement (~2007) left knee H/O total knee replacement (~2015) right knee History of bilateral carpal tunnel release History of lumbar fusion H
--- NOTE | 2023-12-27 12:00 | ECG_ITS ---
Test Date: 2023-12-27 12:13:43 Measurements Intervals [place] Rate: 68 P: 79 OK: 170 QRS: 35 QRSD: 101 T: 37 QT: 373 QTc: 399 Interpretive Statements SINUS RHYTHM LOW QRS VOLTAGE IN PRECORDIAL LEADS [QRS DEFLECTION < 1.0 mV IN CHEST LEADS] No previous ECG available for comparison Electronically Signed On 12-28-2023 10:13:46 CDT by Su Patton M.D.
[2023-12-27 12:35] LABS: Basophils Absolute Auto 0.1 K/mm3 (0.0-0.1); Basophils Percent Auto 0.7 % (0.2-1.2); Eosinophils Absolute Auto 0.1 K/mm3 (0-0.3); Hematocrit 40.3 % (42.0-52.0); Hemoglobin 13.4 g/dL (14.0-18.0); Immature Granulocyte Absolute 0.02 K/mm3 (0.00-0.031); Immature Granulocyte Percent A 0.3 % (0-0.5); Lymphocytes Absolute Auto 1.38 K/mm3 (0.9-3.2); Lymphocytes Percent Auto 20.3 % (18.3-44.2); Mean Corpuscular HGB Conc 33.3 g/dl (32-36); Mean Corpuscular Hemoglobin 30.9 pg (26-34); Mean Corpuscular Volume 92.9 fl (80-100); Mean Platelet Volume 10.7 fl (7.4-10.4); Monocytes Absolute Auto 0.6 K/mm3 (0.1-0.6); Monocytes Percent Auto 9.3 % (2.6-8.5); Neutrophils Absolute Auto 4.7 K/mm3 (1.3-6.7); Neutrophils Percent Auto 68.4 % (45.5-73.1); Platelet Count Result 161 k/mm3 (150-375); Red Blood Count 4.34 M/mm3 (4.6-6.20); Red Cell Distribution Width 13.2 % (11.5-14.5); White Blood Count 6.8 K/mm3 (4.5-10.0)
[2023-12-27] MEDS: SODIUM CHLORIDE 0.9% IV 1,000 ML 999 ML IV CONT (12:44)
[2023-12-27] MEDS: PANTOPRAZOLE 40 MG TABLET PO (12:45)
[2023-12-27 12:47] LABS: Alanine Aminotransferase 32 U/L (6-50); Albumin Level 4.3 g/dL (3.5-5.1); Alkaline Phosphatase 92 U/L (38-126); Anion Gap 12 mmol/L (4-12); Aspartate Amino Transferase 33 U/L (17-59); Bilirubin,Total 0.9 mg/dL (0.2-1.3); Blood Urea Nitrogen 19 mg/dL (9-20); Calcium 9.6 mg/dL (8.4-10.2); Carbon Dioxide 22 mmol/L (22-30); Chloride 103 mmol/L (98-107); Estimated CRCL calculation 54 ml/min; Estimated Glomerular Filt Rate 50; Glucose 99 mg/dL (65-110); Lipase 64 U/L (23-300); Potassium 3.7 mmol/L (3.4-5.0); Sodium 137 mmol/L (137-145)
[2023-12-27 12:48] LABS: Magnesium 1.8 mg/dL (1.6-2.3)
[2023-12-27 12:55] LABS: Troponin I < 0.012 ng/mL (0.000-0.034)
[2023-12-27 13:48] LABS: INR 1.7; Prothrombin Time 20.4 Seconds (11.1-14.7)
[2023-12-27 13:49] LABS: Partial Thromboplastin Time 33.6 Seconds (22.3-36.8)
== END 2023-12-27 15:27 | disposition home or self-care (01) ==
PROVIDERS: Emergency Provider Student in an Organized Health Care Education/Training Program; PCP Family Medicine
DX: R10.84 Generalized abdominal pain (principal); D64.9 Anemia, unspecified; K76.0 Fatty (change of) liver, not elsewhere classified; D17.9 Benign lipomatous neoplasm, unspecified; N40.0 Benign prostatic hyperplasia without lower urinary tract symptoms; F32.A Depression, unspecified; I10 Essential (primary) hypertension; E78.5 Hyperlipidemia, unspecified; G47.30 Sleep apnea, unspecified; M19.90 Unspecified osteoarthritis, unspecified site
CPT/HCPCS: 36415; 71045; 74177; 80053; 83605; 83690; 83735; 84484; 85025; 85610; 85730; 93005; 96360; 99284; A9270; J7030; Q9967

== ENCOUNTER 2024-01-21 14:22 | Outpatient (CLI) | payer MEDICARE, SELFPAY ==
--- NOTE | ~2024-01-21 | XR_ITS ---
XR abdomen/kub 1V Ordering provider: Kvng Ward MD History: . 1 YEAR FOLLOW UP ON LEFT SIDE STONE . Comparison: February 09, 2023 FINDINGS: BOWEL: Nonobstructive bowel gas pattern. ORGANOMEGALY: None. SIGNIFICANT PATHOLOGIC CALCIFICATIONS: None. OTHER: Dextroscoliosis with postoperative changes and degenerative changes. Bilateral hip osteoarthri tic changes. No free air is seen under the diaphragm. IMPRESSION: NO ACUTE ABDOMINAL FINDINGS. Reviewed, dictated and finalized at location [facility].
== END 2024-01-21 14:23 | disposition home or self-care (01) ==
PROVIDERS: PCP Family Medicine; Visit Provider Urology
DX: N20.0 Calculus of kidney (principal)
CPT/HCPCS: 74018

== ENCOUNTER 2024-06-15 16:27 | Emergency (ER) | payer MEDICARE, SELFPAY ==
--- NOTE | ~2024-06-15 | XR_ITS ---
EXAMINATION: XR chest 2V DATE: 06/15/2024 17:08 INDICATION: Wheezing TECHNIQUE: PA and lateral views of the chest were obtained. COMPARISON: Chest radiograph dated 12/27/2023 FINDINGS: The lungs are clear with no focal airspace opacities, pulmonary edema, pleural effusion or pneumothor ax. The cardiomediastinal silhouette is normal. Moderate thoracic spondylosis with bridging osteophyt es at multiple levels consistent with diffuse idiopathic skeletal hyperostosis (DISH). Partially visu alized pedicle screws in the upper lumbar spine for posterior lumbar spinal fusion extending beyond t he inferior margin of the eswcz-ci-kykm. IMPRESSION: 1. No acute cardiopulmonary disease. Reviewed, dictated and finalized at location A. 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
--- NOTE | 2024-06-15 16:48 | ED_ITS ---
HPI - URI/Sore Throat General Chief Complaint: Upper Respiratory Infection Stated Complaint: Cough,congestion Time Seen by Provider: 06/15/24 16:48 Source: patient Mode of arrival: ambulatory Limitations: no limitations History of Present Illness HPI Narrative: Patient reports cough x 10 days. Reports nausea for 30 minutes today and vomiting x1. reports sinus drainage and headache. Reports cough is getting wor se over the last 10 days. Reports chest congestion and wheezing. Denies fevers. Denies shortness of breath or any trouble breathing. Denies sick contacts. Denies ear pressure or pain. Wears hearing aids. Patient reports similar symptoms 1 year ago. Patient home med lists albuterol and Advair. Patient reports the Albuterol and Advair were prescribed 1 year ago for similar symptoms. Patient denies these are current meds. . Patient states he has not been taking these meds. denies home albuterol use. patient denies history of asthma. Denies trying over the counter medication for symptoms. All systems reviewed and negative except as noted above. Related Data Home Medications ?Medication ?Instructions ?Recorded ?Confirmed ?Last Taken ?Type spironolactone 25 mg tablet 12.5 mg PO DAILY 11/06/19 06/15/24 12/31/21 History cholecalciferol (vitamin D3) 25 25 mcg PO DAILY 11/17/19 06/15/24 12/31/21 History mcg (1,000 unit) capsule multivitamin 1 cap PO DAILY 11/17/19 06/15/24 12/31/21 History calcium 600 mg (as 1 tablet PO DAILY 09/01/21 06/15/24 12/31/21 History carbonate)-vitamin D3 10 mcg (400 unit) tablet (Calcium 600 + D(3)) cromolyn 4 % eye drops 1 drp EACH EYE PRN PRN Dry Eye(S) 09/01/21 06/15/24 Unknown History cyanocobalamin (vitamin B-12) 1,000 mcg PO DAILY 09/01/21 06/15/24 12/31/21 History 1,000 mcg tablet finasteride 5 mg tablet 5 mg PO QPM 09/01/21 06/15/24 12/31/21 History xpedwznv-hmlxfugpz-hxqqmjuxo 3.5 1 drp EACH EAR PRN PRN INFECTION 09/01/21 06/15/24 Unknown History mg/mL-10,000 unit/mL-1 % ear solution tamsulosin 0.4 mg capsule 0.4 mg PO DAILY 03/27/22 06/15/24 Unknown History atorvastatin 20 mg tablet 40 mg PO QPM 09/22/22 06/15/24 Unknown History magnesium chloride 64 mg 64 mg PO DAILY 09/22/22 06/15/24 Unknown History tablet,extended release metoprolol tartrate 50 mg tablet 100 mg PO Q12HR 07/14/23 06/15/24 Unknown History Allergies Allergy/AdvReac Type Severity Reaction Status Date / Time No Known Allergies Allergy Mild Verified 06/15/24 16:45 Review of Systems Review of Systems: CONSTITUTIONAL: Denies fever, chills, or sweats. Reports headache. EYES: Denies visual changes, redness, or discharge. ENT: Denies rhinorrhea. reports congestion. denies sore throat or otalgia. CARDIOVASCULAR: Denies chest pain, palpitations, or edema. RESPIRATORY: Reports cough and wheezing. Denies dyspnea. GASTROINTESTINAL: Denies abdominal pain, nausea, vomiting, or diarrhea currently. SKIN: Denies rash or itching. MUSCULOSKELETAL: Denies back pain, joint pain, or myalgia. NEUROLOGIC: Denies headache, numbness, or weakness. PSYCHIATRIC: Denies anxiety or depression. All other systems reviewed are negative, except as documented in HPI. FORMERLY [facility], [facility] Past Medical History Medical History Paroxysmal atrial fibrillation PVC (premature ventricular contraction) Hx of nephrolithotomy with removal of calculi Orchitis and epididymitis, unspecified Acute pyelonephritis Left ureteral stone Sepsis Pyelonephritis of left kidney Left renal stone Left renal mass Hypogonadism in male Fatigue Hyperlipidemia Chronic depression Morbid obesity with BMI of 45.0-49.9, adult Seasonal allergies BPH (benign prostatic hyperplasia) Osteoarthritis, multiple sites DALTON on CPAP HTN (hypertension) Surgical History Surgical History History of lumbar fusion History of bilateral carpal tunnel release History of total bilateral knee replacement H/O total knee replacement (~2015) right knee History of lumbar surgery (~2013) lumbar disc fusion L3-L5 H/O total knee replacement (~2007) left knee Family History Family History Mother , 89 COPD (chronic obstructive pulmonary disease) Dementia Father , 89 Alzheimer disease Grandparent , 60 Paget's disease Grandparent , 67 Intestinal cancer Grandparent , 53 Pulmonary emboli Grandparent , 54 Alcoholism Cerebral hemorrhage Social History Social History Social History: Surrogate medical decision maker: Corry Kearns, spouse. Code status: Full code. Smoking status: Never smoker Second hand tobacco smoke exposure: No Alcohol intake: current Drinks per week: 1 Alcohol use details: occasionally; one drink q2w Substance use: never Substance use type: does not use Lack of Transportation: No Lack of Food: Never True Current Housing: I Have Housing Concerned About Future Housing: No Difficulty Paying Gas/Electric Bills: No Difficulty Paying for Meds: No Currently Unemployed: No Education: Associate Degree Difficulty w/ Childcare or Family Care: No Living arrangements: with family Additional living arrangements comments: Resides in [place] with spouse. 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 Spiritual care concerns: No Comments At time of signature, agree with Nursing past medical, surgical, social and family history. There is no relevant family history pertinent to the presenting complaint. Exam Narrative: GENERAL: This is a well-nourished, well-developed patient, in no apparent distress. HEAD: normocephalic, atraumatic. EYES: Sclera clear/white. Vision is grossly intact. EARS: External ears normal, auditory canals clear and without drainage, TMs opacified without perforation. wears bilateral hearing aids. NOSE: External nose normal with no obvious nasal discharge, nares without redness, no rhinorrhea. THROAT: Mucous membranes moist, posterior pharynx Clear drainage. NECK: Neck supple, non-tender without lymphadenopathy. CARDIOVASCULAR: Regular rate and rhythm without murmurs, gallops, or rubs. RESPIRATORY: Patient has inspiratory and expiratory wheezing deluca bilateral. patient has wheezing audible without stethoscope. Breath sounds equal bilaterally. SKIN: warm, Dry, intact with no suspicious lesions or rash, good texture and turgor. NEURO: awake, alert, and oriented to person, place and time. There were no obvious focal neurologic abnormalities. EXTREMITIES: No joint tenderness, effusion, or edema noted. Course Course Level of Care: Express Care Visit Reevaluation(s) Reevaluation #1: After Duoneb, LS clear bilaterally. No wheezing on auscultation. 17:30. Vital Signs Vital signs: Vital Signs Temperature 37.2 C 06/15/24 16:49 Pulse Rate 76 06/15/24 16:49 Respiratory Rate 16 06/15/24 16:49 Blood Pressure 102/77 06/15/24 16:49 Pulse Oximetry 95 06/15/24 16:49 Temperature 37.2 C 06/15/24 16:49 Pulse Rate 76 06/15/24 16:49 Respiratory Rate 16 06/15/24 16:49 Blood Pressure 102/77 06/15/24 16:49 Pulse Oximetry 95 06/15/24 16:49 reviewed MDM - URI/Sore Throat MDM Narrative Medical decision making narrative: Chest x-ray demonstrated no pneumonia. Duoneb given for wheezing. Following DuoNeb, patient's lung sounds were clear bilaterally with no wheezing. Patient no acute distress. Diagnosed with bronchitis. Resumed inhalers as this helped improve his symptoms in the past. Started oral prednisone. Recommend continuing ibnq-lez-rddpxng medications to treat viral symptoms. Patient is alert, nontoxic. Patient is aware of diagnosis, understands and agrees to treatment plan. Anticipatory guidance given along with printed instructions. Patient agrees to follow-up as directed and is aware of reasons to seek care at the emergency department. Portions of this record may have been created with voice recognition software. Differential Diagnosis Differential diagnosis: Likely viral infection, bronchitis and other (pneumonia) Imaging Data My impression: Agree with Radiology. Radiologist's impression: FINDINGS: The lungs are clear with no focal airspace opacities, pulmonary edema, pleural effusion or pneumothorax. The cardiomediastinal silhouette is normal. Moderate thoracic spondylosis with bridging osteophytes at multiple levels consistent with diffuse idiopathic skeletal hyperostosis (DISH). Partially visualized pedicle screws in the upper lumbar spine for posterior lumbar spinal fusion extending beyond the inferior margin of the qayph-cs-ogfa. IMPRESSION: 1. No acute cardiopulmonary disease. Discharge Plan Discharge Clinical Impression: Bronchitis Patient Disposition: Home, Self-Care Condition: Stable Instructions: Antibiotic Form, Acute Bronchitis (ED) Additional Instructions: You were diagnosed with bronchitis. Your Chest x-ray showed no pneumonia today. Cover all coughs.? Push fluids and eat foods that contain fluids such as applesauce.? Rest.?Do not share eating or drinking utensils.? Use good handwashing techniques. May use over the counter acetaminophen and/or ibuprofen by mouth as needed and as directed on packaging. Take medications as prescribed.?Follow printed instructions. Use your albuterol inhaler; 2 puffs every 4 hours as needed for shortness of breath. ? Read labels and use caution with over the counter products that can cause increased blood pressure.Use products labeled as safe for people with high blood pressure, such as Coriciden HBP as directed on packaging. Read packing of all over the counter medications and take them only as recommended on the label. If symptoms are not improving on this regimen, please return to Express Care or follow up with PCP. If symptoms are worsening or you develop shortness of breath or trouble breathing, proceed immediately to the ER. Keep appointment as scheduled with garbage man next week. Follow up with PCP. Patient Language: Romansh Prescriptions: New albuterol sulfate [Ventolin HFA] 90 mcg/actuation HFA aerosol inhaler 1 inh inhalation Q4H PRN (Reason: shortness of breath or wheezing) Qty: 8.5 0RF prednisone 20 mg tablet 60 mg PO DAILY 5 Days Qty: 15 0RF fluticasone propion-salmeterol [Advair HFA] 115-21 mcg/actuation HFA aerosol inhaler 2 puff inhalation BID Qty: 12 0RF No Action cholecalciferol (vitamin D3) 25 mcg (1,000 unit) capsule 25 mcg PO DAILY Patient Comments: QAM multivitamin Capsule 1 cap PO DAILY Patient Comments: QAM magnesium chloride 64 mg tablet extended release 64 mg PO DAILY naltrexone 50 mg tablet 50 mg PO DAILY Qty: 30 0RF metoprolol tartrate 50 mg tablet 100 mg PO Q12HR Rx Instructions: 50mg in the morning and 100mg at night bupropion HCl 300 mg tablet extended release 24 hr 300 mg PO QAM Qty: 1 0RF tamsulosin 0.4 mg capsule 0.4 mg PO DAILY cyclobenzaprine 10 mg tablet 10 mg PO TID PRN (Reason: muscle spasm) Qty: 60 0RF fluticasone propion-salmeterol [Advair HFA] 45-21 mcg/actuation HFA aerosol inhaler 1 puff inhalation BID Qty: 12 3RF Rx Instructions: Rinse mouth and spit after each use finasteride 5 mg tablet 5 mg PO QPM cromolyn 4 % drops 1 drp EACH EYE PRN PRN (Reason: Dry Eye(S)) qvyaovzg-jlfjlmqyy-LC 3.5-10,000-1 mg/mL-unit/mL-% solution 1 drp EACH EAR PRN PRN (Reason: INFECTION) cyanocobalamin (vitamin B-12) 1,000 mcg Tablet 1,000 mcg PO DAILY Patient Comments: QAM calcium carbonate-vitamin D3 [Calcium 600 + D(3)] 600 mg-10 mcg (400 unit) Tablet 1 tablet PO DAILY Patient Comments: QAM Xarelto 20 mg tablet 20 mg PO DAILY Qty: 30 0RF Rx Instructions: must administer with evening meal spironolactone 25 mg tablet 12.5 mg PO DAILY Patient Comments: QAM enalapril maleate 20 mg tablet 20 mg PO DAILY Qty: 90 3RF Patient Comments: QAM atorvastatin 20 mg tablet 40 mg PO QPM albuterol sulfate 90 mcg/actuation HFA aerosol inhaler 1 inh inhalation Q4H PRN (Reason: shortness of breath or wheezing) Qty: 8.5 0RF omeprazole 40 mg capsule,delayed release(DR/EC) 40 mg PO DAILY Qty: 90 1RF escitalopram oxalate 20 mg tablet 20 mg PO DAILY Qty: 90 3RF Follow-up/Referrals: Phyllis Love MD [Primary Care Provider] - Time of Disposition: 17:37
[2024-06-15 16:49] VITALS: BP 102/77; PULSE 76; RESP 16; TEMP 37.2; O2SAT 95
[2024-06-15] MEDS: IPRATROPIUM 0.5 MG/ALBUTEROL SULFATE 2.5 MG AMPUL.NEB 3 ML INHALATION (17:11)
--- NOTE | 2024-06-15 17:56 | PC.NURSE ---
1740 patient reports feeling better, no urge to cough. Patient was reassessed by provider prior to discharge.
== END 2024-06-15 17:48 | disposition home or self-care (01) ==
PROVIDERS: Emergency Provider Nurse Practitioner; PCP Family Medicine
DX: J40 Bronchitis, not specified as acute or chronic (principal); Z79.899 Other long term (current) drug therapy; I48.0 Paroxysmal atrial fibrillation; I10 Essential (primary) hypertension
CPT/HCPCS: 71046; 99213; G0463

== ENCOUNTER 2024-11-06 14:43 | Outpatient (CLI) | payer MEDICARE, SELFPAY ==
--- NOTE | ~2024-11-06 | MR_ITS ---
EXAMINATION: MR abdomen wo/w con DATE: 11/06/2024 16:00 INDICATION: Left renal cell cancer TECHNIQUE: Magnetic resonance imaging (MRI) of the abdomen was performed without and with 20 mL Multi husam intravenous contrast. Sequences included coronal T2-weighted SS-FSE, coronal and axial FS 2D-F IESTA, axial STIR FSE, axial T2-weighted SS-FSE, axial T2-weighted FS SS-FSE, axial diffusion-weighte d SE, axial dual-echo T1-weighted FSPGR, and axial and coronal T1-weighted LAVA. Postcontrast axial T 1-weighted LAVA images were obtained in a time course. Postcontrast coronal T1-weighted LAVA images w ere obtained. COMPARISON: 09/03/2023 FINDINGS: Heart size is normal. No pericardial or pleural effusion. Liver, gallbladder, spleen, pancreas, bilat eral adrenal glands are normal. 3 small T2 hyperintense cyst at the right kidney the largest measurin g 1.0 cm. Stable appearance of scarring with some associated susceptibility artifact at the lower govind e of the left kidney consistent with prior partial nephrectomy. No evident residual or locally recurr ent disease. Visualized portions of bowels are unremarkable with no obstruction. Normal appendix. No pathologically enlarged abdominal or upper pelvic lymphadenopathy. Lumbar extra scoliosis with severe spondylosis. Magnetic field artifact associated with bilateral carotid and pedicle screw fixation fo r mid to lower lumbar posterior spinal fusion. IMPRESSION: 1. Stable appearance of change of partial nephrectomy at the lower pole the left kidney with no evide nt residual, locally recurrent or metastatic disease. Reviewed, dictated and finalized at location B. IMPRESSION: 1. Stable appearance of change of partial nephrectomy at the lower pole the lef t kidney with no evident residual, locally recurrent or metastatic disease.
--- OUTSIDE RECORDS SUMMARY | 2024-11-06 14:50 | XMS_ITS ---
Author Organization [facility] 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 RADIATOR TESTER Weight Loss. * Medical History: Objective: * Vitals: Assessment: Plan: * Treatment: * Billing Information: * Visit Code: * Procedure Codes: * Electronic signature of Surya Newman MD, FAAAAI on 11/06/2024 at 02:50 PM CDT Sign off status: Pending * Provider: Aileen Newman MD Date: 10/06/2023 Generated for Fideli ng/Kirit/eTransmitting on: 11/06/2024 02:50 PM CDT
--- OUTSIDE RECORDS SUMMARY | 2024-11-06 14:50 | XMS_ITS | Referral Summary ---
Author Organization [facility] [address] Address [address] [place] [address] Care Team Providers Care Drop Tester Name Role Phone Phyllis Love MD Primary Care Provider [phone] Encounters Date Type Department Care Team Description 10/30/2024 1:00 PM CDT Procedure visit [facility] Neuro Sleep [address] [place] [address] Sleep apnea, unspecified type 10/04/2024 2:00 PM CDT Office Visit [facility] Metabolic Weight Management [address] [place] [address] [address] [place] [address] Penny Petty PA Class 3 severe obesity with serious comorbidity and body mass index (BMI) of 45.0 to 49.9 in adult (Primary Dx); Encounter for weight loss counseling; Sleep apnea, unspecified type; Hyperglycemia; DALTON (obstructive sleep apnea) 08/14/2024 Telephone [facility] Metabolic Weight Management [address] [place] [address] Joyce Ozuna, [employer] Med Refill from Last 3 Months Allergies No known active allergies Medications tamsulosin (FLOMAX) 0.4 mg extended release capsule Acti ve cholecalciferol (VITAMIN D-3) 2000 unit tablet Active ALBUTEROL, BULK, MISC Active CALCIUM ORAL Take by mouth Act adebayo enalapril (VASOTEC) 20 mg tablet Take 1 tablet (20 mg total) by mouth daily Active escitalopram (LEXAPRO) 20 mg tablet Take 1 tablet (20 mg total) by mouth daily Active finasteride (PROSCAR) 5 mg tablet Take 1 tablet (5 mg total) by mouth daily Active metoprolol tartrate (LOPRESSOR) 50 mg immediate release tablet Take 1 tablet (50 mg total) by mouth 2 (two) times a day Activ e MULTIVITAMIN ORAL Take by mouth Active spironolactone (ALDACTONE) 25 mg tablet Take 1 tablet (25 mg total) by mouth daily Active cholecalciferol , vitamin D3, (cholecalcifero l, vit D3,,bulk,) 100,000 unit/gram powder Active rivaroxaban (XARELTO) 20 mg tablet Take 1 tablet (20 mg total) by mouth Active magnesium chloride 64 mg of elemental magnesium delayed release tabletIndicatio ns:hypomagnesem ia Take 1 tablet (64 mg of elemental magnesium total) by mouth Active cyanocobalamin/ folic acid (vitamin T36-driit acid) 500-400 mcg tablet Take by mouth Active testosterone cypionate (DEPO-TESTOTERO NE) 200 mg/mL injection INJECT 0.5ML INTRAMUSCULARLY ONCE WEEKLY 06/25/19 25 Active sildenafiL (VIAGRA) 100 mg tablet Take by mouth daily as needed 06/21/19 25 Active semaglutide (OZEMPIC) 1 mg/dose (4 mg/3 mL) pen injector injection Inject 1 mg under the skin every 7 days 3 mL 2 08/15/19 25 Active omeprazole (PriLOSEC) 40 mg capsule Take 1 capsule (40 mg total) by mouth daily 09/26/19 25 Active naltrexone (DEPADE) 50 mg tabletIndicatio ns:Class 3 severe obesity with serious comorbidity and body mass index (BMI) of 45.0 to 49.9 in adult Take 1 tablet (50 mg total) by mouth daily 90 tablet 1 10/05/19 25 025 Active buPROPion XL (WELLBUTRIN XL) 300 mg 24 hr tabletIndicatio ns:Class 3 severe obesity with serious comorbidity and body mass index (BMI) of 45.0 to 49.9 in adult Take 1 tablet (300 mg total) by mouth daily 90 tablet 1 10/05/19 25 Active Active Problems Problem Noted Date Diagnosed Date Adult BMI 45.0-49.9 kg/sq m 02/08/2024 Class 3 severe obesity with serious comorbidity and body mass index (BMI) of 45.0 to 49.9 in adult 02/08/2024 Assessment & Plan (10/04/2024 2:49 PM CDT): Obesity is one of the leading risk factor for mortality. Significant comorbid conditions include atherosclerosis, diabetes, myocardial infarction, renal disease, cardiovascular events such as stroke, nonalcoholic fatty liver disease, peripheral artery disease, and cardiovascular diseases among others. Our goal is and decreasing the weight between 16 and 20% which will significantly decrease the risk of morbidity and mortality. CKD (chronic kidney disease) 10/01/2023 Dyspnea on exertion 10/01/2023 Hypogonadism in male 10/01/2023 Electrolyte and fluid disorder 10/01/2023 Encounter for weight loss counseling 10/01/2023 Assessment & Plan (10/04/2024 2:51 PM CDT): Relevant weight management chart notes reviewed. I counseled the patient on nutrition: Implementing First Line therapy was discussed. Furthermore, we recommend a diet with a slightly higher high protein content, lower glycemic index with carbohydrate restriction yet without daily energy restriction. This approach will need to a weight loss because of higher satiety sensation. Recommend avoiding food persevered in plastic, eating out or processed food. Avoid eating out and ultraprocessed foods. Recommend fresh/frozen protein and vegetables. Study YES and NO list. I counseled the patient on exercise: Recommend 36 min. cardio daily. Based on availiable data on the secondary prevention of coronary heart disease, stroke and prediabetes, physical activity is potentially as active as many drug interventions.Albert Kumar: BMJ 2013 347:f5577;02/2013; Diabetes Care, Volume 35, Apr 2012. Pharmacotherapy: Reviewed medications; discussed with the patient changes in details, discussed side effects and risks of taking the medications in details with the patient. Patient expressed understanding of the new orders; see attached new treatment and orders. Wellbutrin XL 300 mg 1 po every day Naltrxone 50 mg 1/2 tab po bid Ozempic 1 mg very 10 days - salcedo pay - consider changing to zepbound for DALTON Fatty liver 10/01/2023 Hyperlipidemia 10/01/2023 Hypertension, essential 10/01/2023 Hyperglycemia 10/01/2023 Assessment & Plan (10/04/2024 2:49 PM CDT): Pt reports PCP > 20 years ago did fasting gtt and was positive for T2DM. A1c always normal. Repeat GTT ordered Hypomagnesemia 10/01/2023 NSVT (nonsustained ventricular tachycardia) 09/08 GERD (gastroesophageal reflux disease) Kidney stone 10/01/2023 Metabolic disorder 10/01/2023 Morbid obesity 10/01/2023 DALTON (obstructive sleep apnea) 10/01/2023 Assessment & Plan (10/04/2024 2:51 PM CDT): Hx of DALTON on cpap, unsure of original sleep study results from > 15 years ago, repeat ordered Consider zepbound if covered PAC (premature atrial contraction) 10/01/2023 Positive D dimer 10/01/2023 Vitamin B12 deficiency 10/01/2023 Splenomegaly 10/01/2023 Osteoarthritis of knee 03/26/2015 Social History Tobacco Use Types Packs/Day Years Used Date Smoking Tobacco: Never Passive Smoke Exposure: Never Smokeless Tobacco: Never Tobacco Cessation:Counseling Given: Not Answered AUDIT-C Answer Date Recorded Q1: How often do you have a drink containing alcohol? Never 07/05/2024 Q2: How many drinks containi ng alcohol do you have on a typical day when you are drinking? Patient does not drink Q3: How often do you have si x or more drinks on one occasion? 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
--- OUTSIDE RECORDS SUMMARY | 2024-11-06 14:51 | XMS_ITS | Encounter Summary ---
Author Organization [facility] Address [address] [place] [address] Care Team Providers Care Bulk Mail Clerk Name Role Phone Phyllis Love MD Primary Care Provider [phone] Encounter Details Date Type Department Care Team (Late st Contact Info) Description 02/29/2024 Lab Requisition [facility] - DermPath Lab [address] [facility] [place] [address] Ector Puentes MD [address] [place], [place] [id number] Social History Tobacco Use Types Packs/Day Years Used Date Smoking Tobacco: Never Assessed Sex and Gender Information Value Date Recorded Sex Assigned at Not on file Legal Sex Male 12:21 PM CDT Gender Identity Not on file Sexual Orientation Not on file documented as of this encounter Plan of Treatment Not on file documented as of this encounter Procedures Procedure Name Priority Date/Time Associated Diagnosis Comments DERMATOPATHOLOGY Routine 02/28/2024 12:0 0 AM CDT documented in this encounter Results * DERMATOPATHOLOGY (02/28/2024 12:00 AM CDT) Case Report Dermatopathology Report Case: [id number] Authorizing Provider: Ector Puentes MD Collected: 02/28/2024 12:00 AM Ordering Location: [facility] - Received: 02/29/2024 01:44 PM DermPath Lab Pathologist: Catie Salomon MD Specimen: Skin, left medial cheek lateral to ala 12:46 PM CDT DERMATOPATHOLOGY LABORATORY Final Diagnosis Specimen A. SKIN, left medial cheek lateral to ala: BASAL CELL CARCINOMA, NODULAR TYPE (C44.319) 12:46 PM CDT DERMATOPATHOLOGY LABORATORY at 1246 CDT Clinical History R/O Molluscum vs. BCC vs. other 12:46 PM CDT DERMATOPATHOLOGY LABORATORY Gross Description Specimen A: Received is one formalin filled container labeled with the patient's name and designated left medial cheek lateral to ala. The specimen consists of a shave biopsy measuring 5x5x1 mm. Jar 0. 12:46 PM CDT DERMATOPATHOLOGY LABORATORY Microscopic Description Specimen A. SKIN, left medial cheek lateral to ala: Within the dermis there are aggregates of basaloid cells with a high nuclear to cytoplasmic ratio and peripheral palisading. 12:46 PM CDT DERMATOPATHOLOGY LABORATORY Disclaimer An external and internal positive and negative controls are appropriate for the histochemical, immunohistochemical and immunofluorescence stain(s) in this case (if any), except where stated explicitly. The performance characteristics of the stain(s) cited in this report were developed and its performance characteristic determined by the Dermatopathology Laboratory at [facility], directed by Dr. Queta Bradford. These tests need not be, and therefore are not, approved by the [place] Food and Drug Administration. The tests are used for clinical purposes. Billing Codes Specimen Charges Stain Charges 61450 1 12:46 PM CDT DERMATOPATHOLOGY LABORATORY Embedded Images 12:46 PM CDT DERMATOPATHOLOGY LABORATORY Pathology/Cytolog y TISSUE SPECIMEN FROM SKIN / Unknown 02/28/2024 02/29/2024 1:44 PM CDT us Ector Puentes MD LAB - PATHOLOGY/CYTOLOGY ORD ERABLES Final Result DERMATOPATHOLOGY LABORATORY [facility] - Department of Dermatology [facility] Medicine [address] [place] [address], 3rd [place] [address], [facility] [phone] documented in this encounter Visit Diagnoses Not on filedocumented in this encounter Care Teams Bulk Mail Clerk Relationship Specialty Start Date End Date Phyllis Love MD [address] [place] [address] PCP - General 02/19/22 documented as of this encounter
--- OUTSIDE RECORDS SUMMARY | 2024-11-06 14:51 | XMS_ITS | Clinical Summary ---
Author Organization [facility] [address] Address [address] [place] [address] Care Team Providers Care Music Grapher Name Role Phone Phyllis Love MD Primary Care Provider [phone] Allergies No known active allergies Medications tamsulosin [...] by mouth Active cyanocobalamin/ folic acid (vitamin C85-hcmlc acid) 500-400 mcg tablet Take by mouth [...] 10/01/2023 Splenomegaly 10/01/2023 Osteoarthritis of knee 03/26/2015 Encounters Date Type Department Care Team Description 10/30/2024 1:00 PM CDT Procedure visit [facility] Neuro Sleep [address] 6th [address] [place] [address] Sleep apnea, unspecified type 10/04/2024 2:00 PM CDT Office Visit [facility] Metabolic Weight Management [address] [place] [address] Penny Petty PA Class 3 severe obesity with serious comorbidity and body mass index (BMI) of 45.0 to 49.9 in adult (Primary Dx); Encounter for weight loss counseling; Sleep apnea, unspecified type; Hyperglycemia; D[place]TON (obstructive sleep apnea) 08/14/2024 Telephone [facility] Metabolic Weight Management [address] [place] [address] Phiniecy d, Ni, [facility] Med Refill from Last 3 Months Family History Medical History Relation Name Comments diabetes mellitus Brother Heart failure Mother Hypertension Mother Family history of hypertension - (Added by TW Conv) Lung disease Mother Lung trouble - (Added by TW Conv) Relation Name Status Comments Brother Mother Social History Tobacco Use Types Packs/Day Years [...] on file Legal Sex Male 2:42 AM CHEMISTRY INTERN Gender Identity Not on file Sexual Orientation Not on file Obstetrics History Last Filed Vital Signs Vital Sign Reading Time Taken Comments Blood Pressure 135/97 10/04/2024 1:52 PM CDT Pulse 69 10/04/2024 1:52 PM CDT Temperature 37 C (98.6 F) 07/05/2024 3:02 PM CHEMISTRY INTERN Respiratory Rate 16 02/08/2024 12:53 PM CDT Oxygen Saturation 96% 10/04/2024 1:52 PM CDT Inhaled Oxygen Concentration - - Weight 124.7 kg (275 lb) 10/04/2024 1:52 PM CDT Height 159.5 cm (5' 2.8) 10/04/2024 1:52 PM CDT Body Mass Index 49.03 10/04/2024 1:52 PM CDT Plan of Treatment Health Maintenance Due Date Last Done Comments Colon Cancer Screening-Colonoscopy 1955 Depression Screening 1955 Fall Risk Assessment 1955 Hepatitis C Screening 1955 Prostate Cancer Screening-PSA 1955 Hepatitis B Screening 07/07/1973 Well Visit 65+ 07/07/2020 Covid-19 Vaccine (2023-2 5 season) 2024 01/29/2023, 02/11/2022, 09/03/2021, Additional history exists Influenza Vaccine (Season Ended) 2025 02/25/2023, 02/04/2022, 01/29/2021, Additional history exists DTaP/Tdap/Td Vaccine (2 - Td or Tdap) 03/17/2033 03/17/2023 Pneumococcal vaccine 65+ Completed 03/17/2023, 02/08 Zoster Vaccine Completed 06/08/2023, 03/11, 03/09/2013 Insurance MEDICARE [employer] MEDICARE [employer] SENIOR SUPPLEMENT Care Teams Music Grapher Relationship Specialty Start Date End Date Phyllis Love MD PCP - General Family Medicine 10/19/23
--- OUTSIDE RECORDS SUMMARY | 2024-11-06 14:51 | XMS_ITS | Patient Health Record ---
Author Organization [facility] ([address]) Address [address] [place] [address] Support Name Relationship Address Phone Stefan Kearns Guarantor Unknown [phone] Reason For Referral No Information Plan Of Treatment No Information
--- OUTSIDE RECORDS SUMMARY | 2024-11-06 14:51 | XMS_ITS | Encounter Summary ---
Author Organization [facility] Address [address] [place] [address] Care Team Providers Care Mechanical Laboratory Technician Name Role Phone Phyllis Love MD Primary Care Provider [phone] Encounter Details Date Type Department Care Team (Late st Contact Info) Description 09/08/2017 Lab Requisition [facility] DermPath Lab [address] [place] [address] [place] [address] Social History Tobacco Use Types Packs/Day Years [...] Priority Date/Time Associated Diagnosis Comments DERMATOPATHOLOGY Routine 09/07/2017 12:0 0 AM CDT documented in this encounter Results * DERMATOPATHOLOGY (09/07/2017 12:00 AM CDT) Case Report Dermatopathology Report Case: [id number] Authorizing Provider: Ector Puentes MD Collected: 09/07/2017 12:00 AM Pathologist: Juan Bradford MD Received: 09/08/2017 12:37 PM Specimens: A) - Skin, right cheek B) - Skin, left chin C) - Skin, left neck behind left ear D) - Skin, left posterior neck 3:46 PM CDT DERMATOPATHOLOGY LABORATORY Final Diagnosis Specimen A. SKIN, right cheek: INTRADERMAL MELANOCYTIC NEVUS (D22.39) PRESENT AT MARGIN Specimen B. SKIN, left chin: COMPOUND MELANOCYTIC NEVUS (D22.39) PRESENT AT MARGIN Specimen C. SKIN, left neck behind left ear: INTRADERMAL MELANOCYTIC NEVUS (D22.4) PRESENT AT MARGIN Specimen D. SKIN, left posterior neck: TELANGIECTASES (I78.1) CHRONIC PERIFOLLICULITIS (L73.8) (see microscopic description) 3:46 PM T DERMATOPATHOLOGY LABORATORY at 1546 CDT Clinical History A: R/O BCC. Check margins. B-C: R/O dys nevus. Check margins. D: R/O telangiectasia vs other dermatitis. Check margins. 3:46 PM T DERMATOPATHOLOGY LABORATORY Gross Description Specimen A: Received is one formalin filled container labeled with the patient's name and designated right cheek. The specimen consists of a shave biopsy measuring 2a6x2jj, the margin is inked green. Jar 0. Specimen B: Received is one formalin filled container labeled with the patient's name and designated left chin. The specimen consists of a shave biopsy measuring 5a3g0vq, the margin is inked green. Jar 0. Specimen C: Received is one formalin filled container labeled with the patient's name and designated left neck behind left ear. The specimen consists of a shave biopsy measuring 7p1r4gc, the margin is inked green, bisected. Jar 0. Specimen D: Received is one formalin filled container labeled with the patient's name and designated left posterior neck. The specimen consists of a punch biopsy measuring 5t5y5wa, the margin is inked green, bisected. Jar 0. 3:46 PM T DERMATOPATHOLOGY LABORATORY Microscopic Description Specimen A. SKIN, right cheek: There are nests of cytologically bland melanocytes within the dermis that mature with depth. This lesion is present at the margin of the specimen. Specimen B. SKIN, left chin: There are nests of melanocytes at the dermal-epidermal junction and within the dermis. This lesion is present at the margin of the specimen. Specimen C. SKIN, left neck behind left ear: There are nests of cytologically bland melanocytes within the dermis that mature with depth. This lesion is present at the margin of the specimen. Specimen D. SKIN, left posterior neck: The epidermis is unremarkable. Within the dermis there are dilated thin-walled vessels lined by a single layer of endothelium. Sections also show a perifollicular lymphohistiocytic infiltrate. Additional deeper sections were obtained and reviewed. 8 3:46 PM CDT DERMATOPATHOLOGY LABORATORY Disclaimer An external and internal positive and negative controls are appropriate for the histochemical, immunohistochemical and immunofluorescence stain(s) in this case (if any), except where stated explicitly. The performance characteristics of the stain(s) cited in this report were developed and its performance characteristic determined by the Dermatopathology Laboratory at [facility]. These tests need not be, and therefore are not, approved by the [place] Food and Drug Administration. The tests are used for clinical purposes. Billing Codes Specimen Charges Stain Charges 49751 03959 92885 38553 1 1 1 1 8 3:46 PM CDT DERMATOPATHOLOGY LABORATORY Embedded Images 3:46 PM CDT DERMATOPATHOLOGY LABORATORY Pathology/Cytology TISSUE SPECIMEN FROM SKIN / Unknown 09/07/2017 09/08/2017 12:37 PM CDT Miscellaneous samples (specimen) TISSUE SPECIMEN FROM SKIN / Unknown 09/07/2017 09/08/2017 12:37 PM CDT Miscellaneous samples (specimen) TISSUE SPECIMEN FROM SKIN / Unknown 09/07/2017 09/08/2017 12:37 PM CDT Miscellaneous samples (specimen) TISSUE SPECIMEN FROM SKIN / Unknown 09/07/2017 09/08/2017 12:37 PM CDT us Ector Puentes MD LAB - PATHOLOGY/CYTOLOGY ORD ERABLES Final Result DERMATOPATHOLOGY LABORATORY [facility] - Department of Dermatology [address]th [place] [address], [facility] [phone] documented in this encounter Visit Diagnoses Not on filedocumented in this encounter Care Teams Mechanical Laboratory Technician Relationship Specialty Start Date End Date Phyllis Love MD [address] [place] [address] PCP - General 02/19/22 documented as of this encounter
--- OUTSIDE RECORDS SUMMARY | 2024-11-06 14:51 | XMS_ITS | Clinical Summary ---
Author Organization [facility] Address [address] [place] [address] Care Team Providers Care Control Valve Technician Name Role Phone Phyllis Love MD Primary Care Provider [phone] Source Comments [facility],non-owned Affiliates and Associated Physician Practices is amultiple site organization consisting of ambulatory clinics and hospital sitesin [place], [place], [place] and [place]. This disclosure is being madepursuant to the Care Everywhere program and may not contain all information available regarding this patient. Last updated 18.[facility] Social History Tobacco Use Types Packs/Day Years Used Date Smoking Tobacco: Never Assessed Sex and Gender Information Value Date Recorded Sex Assigned at Not on file Legal Sex Male 12:21 PM CDT Gender Identity Not on file Sexual Orientation Not on file Plan of Treatment Health Maintenance Due Date Last Done Comments COLOGUARD (AGES 45-75) - COL ON CA SCREENING 1955 COLON MONITORING 1955 COLONOSCOPY - COLON CA SCREENING 1955 CT COLONOGRAPHY - COLON CA SCREENING 1955 Colorectal Cancer Screening 1955 FIT - COLON CA SCREENING 1955 FLEX SIG - COLON CA SCREENING 1955 LIPID TESTING 1955 MEDICARE AWV 12 MONTHS 1955 HEPATITIS C SCREENING 07/03/1973 DTAP/TDAP/TD VACCINES (1 - Tdap) 07/07/1974 PNEUMOCOCCAL VACCINE 50+ (1 of 1 - PCV) 07/07/2005 ZOSTER VACCINE (1 of 2) 07/07/2005 COVID-19 VACCINE ( - 2023-2 5 season) 2024 DEPRESSION SCREENING 05/10/2024 INFLUENZA VACCINE (Season Ended) 2025 Respiratory Syncytial Virus (RSV) Vaccine Pt: or over 60 yrs (1 - 1-dose 75+ series) 07/07/2030 HEPATITIS B VACCINE Aged Out No longe r eligible based on patient's age to complete this topic HIB VACCINE Aged Out No longer eligi ble based on patient's age to complete this topic HPV VACCINE Aged Out No longer eligi ble based on patient's age to complete this topic MENINGOCOCCAL (Group B) VACC INE SHARED DECISION-MAKING Aged Out No longer eligibl e based on patient's age to complete this topic MENINGOCOCCAL GROUPS A/C/Y/W VACCINE Aged Out No longer eligible b ased on patient's age to complete this topic Insurance [facility] MEDICARE MEDICARE AETNA Care Teams Control Valve Technician Relationship Specialty Start Date End Date Phyllis Love MD [address] [place] [address] PCP - General 02/19/22
--- OUTSIDE RECORDS SUMMARY | 2024-11-06 14:51 | XMS_ITS | Encounter Summary ---
Author Organization [facility] Address [address] [place] [address] Care Team Providers Care Sr. Payroll Processor Name Role Phone Phyllis Love MD Primary Care Provider [phone] Encounter Details Date Type Department Care Team (Late st Contact Info) Description 03/20/2020 Lab Requisition [facility] DermPath Lab [address] [facility] [place] [address] Ector Puentes [place] [address] Social History Tobacco Use Types [...] Priority Date/Time Associated Diagnosis Comments DERMATOPATHOLOGY Routine 03/19/2020 12:0 0 AM [facility] documented in this encounter Results * DERMATOPATHOLOGY (03/19/2020 12:00 AM [facility]) Case Report Dermatopathology Report Case: [id number] Authorizing Provider: Ector Puentes MD Collected: 03/19/2020 12:00 AM Ordering Location: [facility] DermPath Lab Received: 03/20/2020 12:06 PM Pathologist: Juan Bradford MD Specimens: A) - Skin, left cymba B) - Skin, left side scalp 0 5:56 PM [facility] DERMATOPATHOLOGY LABORATORY Final Diagnosis Specimen A. SKIN, left cymba: SEBORRHEIC KERATOSIS, IRRITATED AND INFLAMED (L82.0) Specimen B. SKIN, left side scalp: BENIGN VERRUCOUS KERATOSIS (L82.1) 0 5:56 PM [facility] DERMATOPATHOLOGY LABORATORY at [address] [facility] Clinical History A: R/O ISK, SCC, BCC, nevus. B: R/O BCC SCC, other. 0 5:56 PM [facility] DERMATOPATHOLOGY LABORATORY Gross Description Specimen A: Received is one formalin filled container labeled with the patient's name and designated left cymba. The specimen consists of a shave biopsy measuring 9g0v5po. Jar 0. Specimen B: Received is one formalin filled container labeled with the patient's name and designated left side scalp. The specimen consists of a shave biopsy measuring 4m2s9mx. Jar 0. 0 5:56 PM [facility] DERMATOPATHOLOGY LABORATORY Microscopic Description Specimen A. SKIN, left cymba: Sections show acanthosis, papillomatosis, hyperkeratosis, and squamous eddies. There is a lymphohistiocytic infiltrate within the papillary dermis. Specimen B. SKIN, left side scalp: Sections show hyperkeratosis, papillomatosis, hypergranulosis, and acanthosis. These histological findings can be seen in a verruca vulgaris or a seborrheic keratosis. 0 5:56 PM [facility] DERMATOPATHOLOGY LABORATORY Disclaimer An external and internal positive and negative controls are appropriate for the histochemical, immunohistochemical and immunofluorescence stain(s) in this case (if any), except where stated explicitly. The performance characteristics of the stain(s) cited in this report were developed and its performance characteristic determined by the Dermatopathology Laboratory at [facility], directed by Dr. Queta Bradford. These tests need not be, and therefore are not, approved by the [place] Food and Drug Administration. The tests are used for clinical purposes. Billing Codes Specimen Charges Stain Charges 95750 62547 1 1 0 5:56 PM [facility] DERMATOPATHOLOGY LABORATORY Embedded Images 0 5:56 PM [facility] DERMATOPATHOLOGY LABORATORY Pathology/Cytology TISSUE SPECIMEN FROM SKIN / Unknown 03/19/2020 03/20/2020 12:06 PM [facility] Miscellaneous samples (specimen) TISSUE SPECIMEN FROM SKIN / Unknown 03/19/2020 03/20/2020 12:06 PM [facility] us Ector Puentes MD LAB - PATHOLOGY/CYTOLOGY ORD ERABLES Final Result DERMATOPATHOLOGY LABORATORY [facility] - Department of Dermatology [address], [address] [phone] documented in this encounter Visit Diagnoses Not on filedocumented in this encounter Care Teams Sr. Payroll Processor Relationship Specialty Start Date End Date Phyllis Love MD [address] [place] [address] PCP - General 02/19/22 documented as of this encounter
--- OUTSIDE RECORDS SUMMARY | 2024-11-06 14:51 | XMS_ITS | Clinical Summary ---
Author Organization [facility] Care Team Providers Care Supervisor Dry Cell Assembly Name Role Phone Unavailable Primary Care Provider Unavailabl e Immunizations Immunization Administration Dates Next Due Covid-19, Mrna, Lnp-s, Pf, 30 Mcg/0.3 Ml Dose (P fizer) 02/14/2021 Social History Tobacco Use Types Packs/Day Years Used Date Smoking Tobacco: Never Assessed Sex and Gender Information Value Date Recorded Sex Assigned at Not on file Legal Sex Male 10:42 PM CDT Gender Identity Not on file Sexual Orientation Not on file Plan of Treatment Health Maintenance Due Date Last Done Comments Hepatitis C Virus (HCV) Screening 1955 TdaP Immunization 1955 Cologuard 07/07/2000 Colonoscopy 07/07/2000 Colorectal Cancer Screening 07/07/2000 Immunochemical Fecal Occult Blood 07/07/2000 Pneumococcal Immunization (50+ years) (1 of 1 - PCV) 07/07/2005 Zoster Immunization (2 of 3) 05/04/2013 03/09/2013 SARS-COV-2 Immunization ( - season) 2024 02/14/2021, 07/25/2020, 07/04/2020 Influenza Immunization (Season Ended) 2025 01/29/2021, 12/29/2019, 02/06/2017, Additional history exists Respiratory Syncytial Virus (RSV) Immunization (Adult) (1 - 1-dose 75+ series) 07/07/2030 Hepatitis B Immunization Aged Out No longer eligible based on patient's age to complete this topic Human Papillomavirus (HPV) Immunization Aged Out No longer eligible based on patient's age to complete this topic Meningococcal Immunization (ACWY) Aged Out No longer eligible based on patient's age to complete this topic Rotavirus Immunization Aged Out No lo nger eligible based on patient's age to complete this topic
== END 2024-11-06 14:44 | disposition home or self-care (01) ==
PROVIDERS: PCP Family Medicine; Visit Provider Nurse Practitioner Family
DX: C64.2 Malignant neoplasm of left kidney, except renal pelvis (principal); Z90.5 Acquired absence of kidney
CPT/HCPCS: 74183; A9577